=== PATIENT | male | born 1970 | race Caucasian/White ===

== ENCOUNTER 2023-04-04 07:54 | Emergency (ER) | payer BC, SELFPAY ==
[2023-04-04] VITALS (12 sets, daily range): BP systolic 127–146; BP diastolic 79–95; PULSE 80–94; RESP 16; TEMP 36.1; O2SAT 92–96; BMI 37.3
--- NOTE | 2023-04-04 08:02 | CRLHL7_ITS ---
For Patients: As a result of the Century Cures Act, medical imaging exams and procedure reports are released immediately into your electronic medical record. You may view this report before your referring provider. If you have questions, please contact your health care provider. INDICATION: Abdominal pain. History of pancreatitis COMPARISON: August 30, 2022 TECHNIQUE: CT examination of the abdomen and pelvis was performed following the uneventful intravenous administration of 122 cc of Isovue 370. Thin section axial images were obtained from the lung bases through the pubic symphysis. Oral contrast was not administered. Please note that all CT scans at this facility use dose modulation, iterative reconstruction, and/or weight-based dosing when appropriate to reduce radiation dose to as low as reasonably achievable. FINDINGS: LUNG BASES: The lung bases as visualized appear normal.The heart size is normal at the lung bases. LIVER/BILIARY SYSTEM:The liver is normal in size and configuration. There is no focal mass and there is no intra- or extra hepatic biliary ductal dilatation.Hepatic steatosis. Surgically absent gallbladder ADRENALS: Normal KIDNEYS, URETERS and BLADDER:The kidneys appear normal. No visible mass, calculus or hydronephrosis. The ureters and bladder as visualized appear normal. SPLEEN:Normal appearance. PANCREAS: Appears normal. RETROPERITONEUM and MESENTERY: There is no mass, adenopathy or aortic aneurysm. Atherosclerotic vascular calcifications GASTROINTESTINAL SYSTEM: There is no evidence of diverticulitis, colitis, mechanical obstruction, or appendicitis. The small bowel as visualized appears normal. PELVIS: No mass, adenopathy or free fluid. OSSEOUS STRUCTURES and ABDOMINAL WALL: Grade 1 spondylolytic spondylolisthesis of L5 on S1.no significant abdominal wall defect. OTHER: No free fluid or free air. IMPRESSION: No visible cause for pain. There is no finding of pancreatitis by CT. There are incidental nonacute appearing findings as discussed above. Please note that all CT scans at this facility use dose modulation, iterative reconstruction, and/or weight-based dosing when appropriate to reduce radiation dose to as low as reasonably achievable. Dictated by Wander Kilgore MD @ 04/04/2023 9:25:04 AM (Electronically Signed)
--- NOTE | 2023-04-04 08:05 | ED.GENADULT ---
HPI - General Adult General Chief complaint: Abdominal Pain Stated complaint: upper abdominal pain Time Seen by Provider: 04/04/23 07:55 History of Present Illness HPI narrative: Patient is a 52 year white male lives in [place] sees Dr. Esparza for primary care and has had a history of gastritis, history of pancreatitis. He reports he does drink alcohol, he has been able to eat and drink, but over the last couple of days had epigastric pain. He has taken Prilosec for this in the past. He reports that he has felt nauseated wants to vomit, reports the pain is a 5/10. He has not any blood in his stool is not any hematemesis or vomiting. He denies anterior chest pain. Denies shortness of breath. He has had no rigors or chills. He has had a cholecystectomy Related Data Home Medications Medication Instructions Recorded Confirmed albuterol sulfate 90 mcg/actuation 1 inh inhalation ONCE 11/06/21 02/26/23 aerosol inhaler cetirizine 10 mg capsule (All Day 10 mg PO QDAY PRN 11/06/21 02/26/23 Allergy (cetirizine)) fluticasone 250 mcg-salmeterol 50 1 inh inhalation BID 11/06/21 02/26/23 mcg/dose blistr powdr for inhalation (Advair Diskus) omeprazole 20 mg capsule,delayed 20 mg PO QDAY 11/06/21 02/26/23 release sulfasalazine 500 mg tablet 0.5 g PO QDAY 11/06/21 02/26/23 zafirlukast 10 mg tablet 20 mg PO BID 11/06/21 02/26/23 ipratropium 0.5 mg-albuterol 3 mg 3 ml inhalation Q6H PRN 09/08/22 02/26/23 (2.5 mg base)/3 mL nebulization soln metoprolol succinate 25 mg 25 mg PO DAILY 09/08/22 02/26/23 tablet,extended release 24 hr fluconazole 200 mg tablet 200 mg PO DAILY 02/26/23 02/26/23 Previous Rx's Medication Instructions Recorded nystatin 100,000 unit/mL oral 5 ml PO QID #200 mL 11/06/21 suspension ondansetron HCl 4 mg tablet 4 mg PO Q6H #20 tabs 08/30/22 pantoprazole 40 mg tablet,delayed 40 mg PO DAILY #20 tabs 08/30/22 release (Protonix) Allergies Allergy/AdvReac Type Severity Reaction Status Date / Time zolpidem Allergy Severe Verified 02/26/23 10:22 cefuroxime Allergy Intermediate Diarrhea Verified 02/26/23 10:22 fluorometholone Allergy Intermediate Diarrhea Verified 02/26/23 10:22 banana Allergy Mild Verified 02/26/23 10:22 clavulanic acid Allergy Mild Verified 02/26/23 10:22 tetracycline Allergy Mild Verified 02/26/23 10:22 Review of Systems Status of ROS: Reports: 6 or more systems reviewed and unremarkable except as noted in History and below [facility] Medical History Sore throat ?J02.9 - Acute pharyngitis, unspecified (ICD-10) Social History Smoking Status: Never smoker Do you use any of these nicotine containing products: None Second hand tobacco smoke exposure: No How often do you have a drink containing alcohol: monthly or less How many standard drinks containing alcohol do you have on a typical day: 1 or 2 How often do you have six or more drinks on one occasion: Never AUDIT-C Alcohol total score: 1 Non-prescribed substance use: denies use service: No Exam Narrative: Exam Narrative: Objective: Patient denies fever His BMI is elevated A alert orient x3 Noncyanotic HEENT is unremarkable Neck is supple Chest clear Heart rhythm regular heart murmur Abdomen obese benign nontender does have some mild epigastric tenderness to palpation no palpable masses Extremities are no edema neurologic nonfocal, good peripheral perfusion Const: Vital Signs, click to edit/add: Vital Signs - 24 hr 04/04/23 08:00 04/04/23 08:23 04/04/23 08:30 Temperature 97 F L Pulse Rate 87 88 Pulse Rate [Pulse Oximeter] 94 Respiratory Rate 16 Blood Pressure Blood Pressure [Ri ght Upper Arm] 137/95 H Pulse Oximetry 93 92 94 Oxygen Delivery Dc thod Room Air 04/04/23 08:31 04/04/23 08:32 04/04/23 09:10 Temperature Pulse Rate 90 90 Pulse Rate [Pulse Oximeter] Respiratory Rate Blood Pressure 130/95 H Blood Pressure [Ri ght Upper Arm] Pulse Oximetry 94 94 96 Oxygen Delivery Me thod 04/04/23 09:15 04/04/23 09:30 04/04/23 09:31 Temperature Pulse Rate 93 85 87 Pulse Rate [Pulse Oximeter] Respiratory Rate Blood Pressure 127/79 Blood Pressure [Ri ght Upper Arm] Pulse Oximetry 92 93 94 Oxygen Delivery Me thod 04/04/23 09:45 04/04/23 10:00 04/04/23 10:01 Temperature Pulse Rate 80 84 88 Pulse Rate [Pulse Oximeter] Respiratory Rate 16 Blood Pressure 146/88 H Blood Pressure [Ri ght Upper Arm] Pulse Oximetry 94 93 96 Oxygen Delivery Me thod Course Vital Signs Vital signs: Initial Vital Signs Temperature 97 F L 04/04/23 08:00 Temperature Source Temporal Artery Scan 04/04/23 08:00 Pulse Rate 94 04/04/23 08:00 Pulse Rhythm Regular 04/04/23 08:00 Respiratory Rate 16 04/04/23 08:00 Blood Pressure 137/95 H 04/04/23 08:00 Blood Pressure Mean 109 H 04/04/23 08:00 Blood Pressure Position Supine 04/04/23 08:00 Pulse Oximetry 93 04/04/23 08:00 Oxygen Delivery Method Room Air 04/04/23 08:00 Vital Signs Temperature 97 F L 04/04/23 08:00 Pulse Rate 94 04/04/23 08:00 Respiratory Rate 16 04/04/23 08:00 Blood Pressure 137/95 H 04/04/23 08:00 Pulse Oximetry 93 04/04/23 08:00 Oxygen Delivery Method Room Air 04/04/23 08:00 Temperature 97 F L 04/04/23 08:00 Pulse Rate 88 04/04/23 10:01 Respiratory Rate 16 04/04/23 10:01 Blood Pressure 146/88 H 04/04/23 10:01 Pulse Oximetry 96 04/04/23 10:01 Oxygen Delivery Method Room Air 04/04/23 08:00 Medications Administered Medications: Discontinued Medications Generic Name Dose Route Start Last Admin Trade Name Freq PRN Reason Stop Dose Admin Sodium Chloride 1,000 mls @ 6,000 mls/hr 04/04/23 08:15 04/04/23 08:37 0.9 % Sodium Chloride 1000 Ml IV 04/04/23 08:24 6,000 mls/hr .Q10M RAISSA Administration Morphine Sulfate 4 mg 04/04/23 08:02 04/04/23 08:37 Morphine 4 Mg/Ml Inj IVP 04/04/23 08:03 4 mg ONCE ONE Administration Ondansetron HCl 4 mg 04/04/23 08:02 04/04/23 08:38 Ondansetron 2 Mg/Ml Inj IVP 04/04/23 08:03 4 mg ONCE ONE Administration Pantoprazole Sodium 40 mg 04/04/23 08:02 04/04/23 08:37 Pantoprazole Sodium 40 Mg Inj IVP 04/04/23 08:03 40 mg ONCE ONE Administration Medical Decision Making MDM Narrative Medical decision making narrative: [age] year white male with history of pancreatitis, history of gastritis. Presents with couple day history of epigastric pain. At this point I think checking his labs, IV fluid, pain medicine, IV acid suppressant, CT scan abdomen pelvis with IV contrast will pancreatitis be appropriate. Will check a lipase and amylase as well. And check laboratory studies. Disposition pending findings above. Disposition would include gastritis, reflux, pancreatitis, colitis. Addendum 9:35 a.m.: The patient has a normal EKG by my read, his CT scan looks unremarkable. The laboratory studies thus far look reassuring. If his amylase and lipase come back normal I think we can allow him to go home rest light activity light diet. Would recommend Zofran ODT as needed will get that out of the N/C meds and Prilosec 20 mg daily for the next couple of weeks, follow-up with Dr. Esparza the next few days. Patient's labs returned normal Lab Data Labs: Lab Results 04/04/23 Range/Units 08:32 WBC 9.36 (4.50-11.00) K/uL RBC 5.47 (4.30-5.90) m/uL Hgb 16.0 (13.5-17.5) gm/dL Hct 47.6 (37.0-53.0) % MCV 87 (80-100) fL MCH 29 (26-34) pg MCHC 34 (32-36) gm/dL RDW Coeff of José Miguel 12.9 (11.5-15.5) % Plt Count 299 (140-440) K/uL Neut % (Auto) 84.8 H (42.0-72.0) % Lymph % (Auto) 5.4 L (20-44) % Amelia % (Auto) 6.3 (0.0-11.0) % Eos % (Auto) 3.1 (0.0-7.0) % Baso % (Auto) 0.2 (0.0-3.0) % Neut # (Auto) 7.90 H (1.7-7.0) K/uL Lymph # (Auto) 0.50 L (0.90-2.90) K/uL Amelia # (Auto) 0.60 (0.00-0.90) K/UL Eos # (Auto) 0.29 (0.00-0.50) K/uL Baso # (Auto) 0.02 (0.00-0.30) K/uL Abs Immat Gran (auto) 0.02 (0.00-0.30) K/uL Imm/Tot Granulo (auto) 0.2 % Sodium 135 (135-149) mmol/L Potassium 4.2 (3.6-5.1) mmol/L Chloride 104 (96-114) mmol/L Carbon Dioxide 21 (20-32) mmol/L Anion Gap 10 (7-15) mEq/L BUN 11 (7-30) mg/dL Creatinine 0.7 (0.5-1.5) mg/dL Estimated Creat Clear 119.43 Estimated GFR 111 ml/min Glucose 121 H (60-115) mg/dL Calcium 9.2 (8.4-10.6) mg/dL Total Bilirubin 0.7 (0.1-1.5) mg/dL Direct Bilirubin 0.1 (0.0-0.5) mg/dL AST 23 (12-35) U/L ALT 27 (4-50) U/L Alkaline Phosphatase 34 L (40-150) U/L C-Reactive Protein 1.6 H (0.5-1.0) mg/dL Total Protein 7.8 (6.0-8.3) g/dL Albumin 4.6 (3.3-5.0) g/dL Amylase 54 (18-89) U/L Lipase 104 (23-300) U/L POC Troponin I 0.00 L (0.01-0.04) ng/ml Discharge Plan Discharge Clinical Impression: Abdominal pain Patient Disposition: Home w/ Parent or Adult Condition: Stable Additional Instructions: Light activity, Zofran as needed, Tylenol as needed, light diet, recheck with regular doctor next couple of days, return to ED sooner problems or concerns. Also recommend he take Prilosec 20 mg a day which is [id number] for the next couple of weeks. Activity Level: Light activity Discharge Diet: Clear Liquid Diabetic Diet Detail: Advance diet as tolerated Prescriptions: No Action fluticasone propion-salmeterol [Advair Diskus] 250-50 mcg/dose blister with device 1 inh inhalation BID zafirlukast 10 mg tablet 20 mg PO BID Rx Instructions: must be taken on empty stomach, at least 1 hr before or 2 hrs after a meal/food sulfasalazine 500 mg tablet 0.5 g PO QDAY Rx Instructions: give with food (meal/snack) albuterol sulfate 90 mcg/actuation HFA aerosol inhaler 1 inh inhalation ONCE omeprazole 20 mg capsule,delayed release(DR/EC) 20 mg PO QDAY All Day Allergy (cetirizine) 10 mg capsule 10 mg PO QDAY PRN nystatin 100,000 unit/mL suspension 5 ml PO QID Qty: 200 1RF Rx Instructions: swish and swallow fluconazole 200 mg tablet 200 mg PO DAILY metoprolol succinate 25 mg tablet extended release 24 hr 25 mg PO DAILY ipratropium-albuterol 0.5 mg-3 mg(2.5 mg base)/3 mL solution for nebulization 3 ml inhalation Q6H PRN ondansetron HCl 4 mg tablet 4 mg PO Q6H Qty: 20 0RF pantoprazole [Protonix] 40 mg tablet,delayed release (DR/EC) 40 mg PO DAILY Qty: 20 2RF Follow Up/Referrals: Cezar Esparza MD [Primary Care Provider] - Stand Alone Forms: [employer] Info Instructions
--- OUTSIDE RECORDS SUMMARY | 2023-04-04 08:09 | XMS_ITS | Patient Health Record ---
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 Role Phone No Primary, Care Primary Care Provider Unavailab Jon Hernandez Unavailable [phone] Carole Stern DO Unavailable Unavailable ALLERGIES No Known Allergies REASON FOR REFERRAL No Information MEDICATIONS Medication SIG (Take, Route, Frequency, Duration) Notes Start Date End Date Status Cyclobenzaprine HCl 10 MG 1 tablet as ne eded Orally prn Active Advair Diskus 250-50 MCG/DOSE 1 puff Inh alation Twice a day Active Ventolin HFA 108 (90 Base) MCG/ACT 1 puff as needed Inhalation prn Active Omeprazole 20 MG 1 capsule 30 minutes before morning meal Orally Once a day Active SOCIAL HISTORY Sex Assigned At : Social History Observation Description Sex Assigned At Unknown Alcohol Screen Question Answer Notes Did you have a drink containing alcohol in the p ast year? No Points 0 Interpretation Negative PROBLEMS Problem Type ICD Code Onset Dates Problem Status W/U Status Risk SNOMED Code Notes Problem Tension-type headache, unspecified, not intractable (G44.209) Active confirmed Tension-type headache (715527442) Problem Dorsalgia, unspecified (M54.9) Active confirmed Backache (306016336) Problem Segmental and somatic dysfunction of cervical region (M99.01) Active confirmed Segmental and somatic dysfunction (248949794) Problem Neck pain (M54.2) Active confirmed Neck pain (19420570) PLAN OF TREATMENT No Information Insurance Providers Payer Name Payer Address Payer Phone Subscriber Number Group Number Insured Name Patient Relationship to Insured Coverage Start Date Coverage End Date [place] [address] [address] [place] [phone] [id number] Susana Hoff Spouse - patient is the spouse of the insured 1 MEDICAL (GENERAL) HISTORY Medical History History ICD Code General Past Medical History : Asthma,Stomach Ulcers,Arthritis,Headaches,Cancer,Acid Reflux,Sleep Apnea Surgical History Surgery Date(Month/Year) Gallbladder 10/28 Left ear removal melanoma 03/30
[2023-04-04] MEDS: MORPHINE 4 MG/ML INJ IVP (08:37)
[2023-04-04] MEDS: 0.9 % SODIUM CHLORIDE 1000 ml 1,000 ML 6000 ML IV (08:37)
[2023-04-04] MEDS: PANTOPRAZOLE SODIUM 40 MG INJ IVP (08:37)
[2023-04-04] MEDS: ONDANSETRON 2 MG/ML inj 4 MG IVP (08:38)
[2023-04-04 09:12] LABS: Basophils Absolute Auto 0.02 K/uL (0.00-0.30); Basophils Percent Auto 0.2 % (0.0-3.0); Eosinophils Absolute Auto 0.29 K/uL (0.00-0.50); Eosinophils Percent Auto 3.1 % (0.0-7.0); Hematocrit 47.6 % (37.0-53.0); Immature Granulocytes Abs Auto 0.02 K/uL (0.00-0.30); Immature Granulocytes Pct Auto 0.2 %; Lymphocytes Percent Auto 5.4 % (20-44); Mean Corpuscular HGB Conc 34 gm/dL (32-36); Mean Corpuscular Hemoglobin 29 pg (26-34); Mean Corpuscular Volume 87 fL (80-100); Monocytes Percent Auto 6.3 % (0.0-11.0); Neutrophils Percent Auto 84.8 % (42.0-72.0); Platelet Count* 299 K/uL (140-440); RDW Coefficient of Variation % 12.9 % (11.5-15.5); Red Blood Count 5.47 m/uL (4.30-5.90); White Blood Count* 9.36 K/uL (4.50-11.00)
[2023-04-04 09:25] LABS: Chloride* 104 mmol/L (96-114); Potassium* 4.2 mmol/L (3.6-5.1); Sodium* 135 mmol/L (135-149)
[2023-04-04 09:26] LABS: Albumin* 4.6 g/dL (3.3-5.0)
[2023-04-04 09:28] LABS: Creatinine* 0.7 mg/dL (0.5-1.5); Est. Creatinine Clearance* 119.43; Estimated Glomerular Filt Rate 111 ml/min
[2023-04-04 09:29] LABS: Amylase* 54 U/L (18-89); Anion Gap 10 mEq/L (7-15); Blood Urea Nitrogen* 11 mg/dL (7-30); Calcium* 9.2 mg/dL (8.4-10.6); Carbon Dioxide* 21 mmol/L (20-32); Glucose* 121 mg/dL (60-115); Total Protein* 7.8 g/dL (6.0-8.3)
[2023-04-04 09:30] LABS: Alanine Aminotransferase* 27 U/L (4-50); Alkaline Phosphatase* 34 U/L (40-150); Aspartate Amino Transferase* 23 U/L (12-35); Bilirubin Direct* 0.1 mg/dL (0.0-0.5); Bilirubin Total* 0.7 mg/dL (0.1-1.5); Lipase* 104 U/L (23-300)
[2023-04-04 09:32] LABS: C Reactive Protein* 1.6 mg/dL (0.5-1.0)
[2023-04-04 11:27] LABS: Slide Review Reflex No
== END 2023-04-04 10:12 | disposition home or self-care (01) ==
PROVIDERS: Emergency Provider Family Medicine; PCP Family Medicine
DX: R10.13 Epigastric pain (principal)
CPT/HCPCS: 36415; 74177; 80048; 80076; 82150; 83690; 84484; 85025; 86140; 93005; 94761; 96374; 96375; 99284; 99285; C9113; J2270; J2405; J7030; Q9967

== ENCOUNTER 2023-06-04 05:55 | Emergency (ER) | payer BC, SELFPAY ==
[2023-06-04 06:03] VITALS: BP 158/111; PULSE 79; RESP 16; TEMP 36.6; O2SAT 99; BMI 38.0
--- NOTE | 2023-06-04 06:09 | ED_ITS ---
HPI - Allergic Reaction General Chief complaint: Allergic Reaction Stated complaint: rash on chest, back Time Seen by Provider: 06/04/23 06:01 History of Present Illness HPI narrative: Patient is a 52-year-old gentleman who has a history of oral thrush. He took a dose of fluconazole which over last 12 hours let drug eruption on the anterior chest. The eruption is a somewhat erythematous and itchy. No desquamation. No oral mucosal involvement or shortness of breath. Patient has had no palpitations no fevers no chills no night sweats no real involvement of the extremities. The areas of induration are approximately a 4 cm diameter slightly raised and erythematous. He has had previous reactions to similar medications in the past. Related Data Home Medications Medication Instructions Recorded Confirmed albuterol sulfate 90 mcg/actuation 1 inh inhalation ONCE 11/06/21 02/26/23 aerosol inhaler cetirizine 10 mg capsule (All Day 10 mg PO QDAY PRN 11/06/21 02/26/23 Allergy (cetirizine)) fluticasone 250 mcg-salmeterol 50 1 inh inhalation BID 11/06/21 02/26/23 mcg/dose blistr powdr for inhalation (Advair Diskus) omeprazole 20 mg capsule,delayed 20 mg PO QDAY 11/06/21 02/26/23 release sulfasalazine 500 mg tablet 0.5 g PO QDAY 11/06/21 02/26/23 zafirlukast 10 mg tablet 20 mg PO BID 11/06/21 02/26/23 ipratropium 0.5 mg-albuterol 3 mg 3 ml inhalation Q6H PRN 09/08/22 02/26/23 (2.5 mg base)/3 mL nebulization soln metoprolol succinate 25 mg 25 mg PO DAILY 09/08/22 02/26/23 tablet,extended release 24 hr fluconazole 200 mg tablet 200 mg PO DAILY 02/26/23 02/26/23 Previous Rx's Medication Instructions Recorded nystatin 100,000 unit/mL oral 5 ml PO QID #200 mL 11/06/21 suspension ondansetron HCl 4 mg tablet 4 mg PO Q6H #20 tabs 08/30/22 pantoprazole 40 mg tablet,delayed 40 mg PO DAILY #20 tabs 08/30/22 release (Protonix) Allergies Allergy/AdvReac Type Severity Reaction Status Date / Time zolpidem Allergy Severe Verified 02/26/23 10:22 cefuroxime Allergy Intermediate Diarrhea Verified 02/26/23 10:22 fluorometholone Allergy Intermediate Diarrhea Verified 02/26/23 10:22 banana Allergy Mild Verified 02/26/23 10:22 clavulanic acid Allergy Mild Verified 02/26/23 10:22 tetracycline Allergy Mild Verified 02/26/23 10:22 Review of Systems Status of ROS Reports: 10 or more systems reviewed and unremarkable except as noted in History and below [facility] Medical History Sore throat ?J02.9 - Acute pharyngitis, unspecified (ICD-10) Social History Smoking Status: Never smoker Do you use any of these nicotine containing products: None Second hand tobacco smoke exposure: No How often do you have a drink containing alcohol: monthly or less How many standard drinks containing alcohol do you have on a typical day: 1 or 2 How often do you have six or more drinks on one occasion: Never AUDIT-C Alcohol total score: 1 Non-prescribed substance use: denies use service: No Exam Narrative: Exam Narrative: EXAM GENERAL: Patient appears comfortable and well. EYES: No scleral icterus. ENT: Tympanic membranes and oropharynx normal. THYROID: no thyroid nodules or thyromegaly. LYMPH: No supraclavicular or cervical lymphadenopathy. SKIN: Mild urticaria rash on the anterior torso extending to the neck. EXT: No dependent lower extremity pedal edema. HEART: Regular rate and rhythm with no murmurs, rubs, or gallops. LUNGS: Clear to auscultation bilaterally with no crackles or wheezes. ABD: Soft, non tender, non distended. PSYCH: Good eye contact, speech is not pressured. Const: Vital Signs, click to edit/add: Vital Signs - 24 hr 06/04/23 06:03 Temperature 97.8 F Pulse Rate [Pulse Oximeter] 79 Respiratory Rate 16 Blood Pressure [Ri ght Upper Arm] 158/111 H Pulse Oximetry 99 Oxygen Delivery Me thod Room Air Course Course ED Course: Patient seen and examined. Vital Signs Vital signs: Initial Vital Signs Respiratory Effort Normal, Spontaneous, Non-Labored 06/04/23 06:01 Respiratory Depth Normal 06/04/23 06:01 Respiratory Pattern Normal 06/04/23 06:01 Vital Signs Temperature 97.8 F 06/04/23 06:03 Pulse Rate 79 06/04/23 06:03 Respiratory Rate 16 06/04/23 06:03 Blood Pressure 158/111 H 06/04/23 06:03 Pulse Oximetry 99 06/04/23 06:03 Oxygen Delivery Method Room Air 06/04/23 06:03 Temperature 97.8 F 06/04/23 06:03 Pulse Rate 79 06/04/23 06:03 Respiratory Rate 16 06/04/23 06:03 Blood Pressure 158/111 H 06/04/23 06:03 Pulse Oximetry 99 06/04/23 06:03 Oxygen Delivery Method Room Air 06/04/23 06:03 MDM - Allergic Reaction MDM Narrative Medical decision making narrative: Patient is a healthy 52-year-old gentleman who has had a reaction to fluconazole. He has had similar reactions in the past. He has no mucous membrane involvement in the urticaria or limited to the anterior torso and anterior neck. He has no signs of Lopez-Husam syndrome or erythema multiforme. This time I did treat him with 40 mg of Solu-Medrol IM and a 5 day course of prednisone. He will avoid similar medications in the future and will follow-up with his primary physician as needed. Differential Diagnosis Differential diagnosis: Likely anaphylaxis, allergic reaction, angioedema, contact dermatitis, adverse reaction to drug, viral enanthem and urticaria Discharge Plan Discharge Instructions: General Allergic Reaction (ED) Additional Instructions: . Fluconazole Prednisone as directed Benadryl as needed 25-50 mg every 6 hours. Follow-up with your doctor as needed Moisturizing skin lotions as needed. Activity Level: No Restrictions Discharge Diet: Regular Prescriptions: No Action fluticasone propion-salmeterol [Advair Diskus] 250-50 mcg/dose blister with device 1 inh inhalation BID zafirlukast 10 mg tablet 20 mg PO BID Rx Instructions: must be taken on empty stomach, at least 1 hr before or 2 hrs after a meal/food sulfasalazine 500 mg tablet 0.5 g PO QDAY Rx Instructions: give with food (meal/snack) albuterol sulfate 90 mcg/actuation HFA aerosol inhaler 1 inh inhalation ONCE omeprazole 20 mg capsule,delayed release(DR/EC) 20 mg PO QDAY All Day Allergy (cetirizine) 10 mg capsule 10 mg PO QDAY PRN nystatin 100,000 unit/mL suspension 5 ml PO QID Qty: 200 1RF Rx Instructions: swish and swallow fluconazole 200 mg tablet 200 mg PO DAILY metoprolol succinate 25 mg tablet extended release 24 hr 25 mg PO DAILY ipratropium-albuterol 0.5 mg-3 mg(2.5 mg base)/3 mL solution for nebulization 3 ml inhalation Q6H PRN ondansetron HCl 4 mg tablet 4 mg PO Q6H Qty: 20 0RF pantoprazole [Protonix] 40 mg tablet,delayed release (DR/EC) 40 mg PO DAILY Qty: 20 2RF Follow Up/Referrals: Cezar Esparza MD [Primary Care Provider] - Stand Alone Forms: [facility] Info Instructions
[2023-06-04] MEDS: METHYLPREDNISOLONE SOD SUCC 40 MG/ML IM (06:20)
[2023-06-04 06:21] VITALS: RESP 16; O2SAT 96
== END 2023-06-04 06:22 | disposition home or self-care (01) ==
LOC: ED 06:12
PROVIDERS: Emergency Provider Internal Medicine; PCP Family Medicine
DX: R21 Rash and other nonspecific skin eruption (principal); T37.8X5A Adverse effect of other specified systemic anti-infectives and antiparasitics, initial encounter
CPT/HCPCS: 96372; 99283; J2920

== ENCOUNTER 2023-12-31 18:16 | Emergency (ER) | payer BC, SELFPAY ==
[2023-12-31] VITALS (17 sets, daily range): BP systolic 127–167; BP diastolic 85–100; PULSE 74–88; RESP 16–20; TEMP 36.5; O2SAT 92–98; BMI 37.3
--- NOTE | 2023-12-31 19:05 | ED_ITS ---
HPI - Abdominal Pain General Time Seen by Provider: 19:06 Date Seen: 12/31/23 Chief Complaint: Abdominal Pain Stated Complaint: Upper abdominal pain Time Seen by Provider: 12/31/23 19:05 Source: patient, RN notes reviewed and old records reviewed Mode of arrival: ambulatory Limitations: no limitations History of Present Illness HPI narrative: This 53-year-old male is coming in with epigastric upper abdominal pain for 3 days. It has been intermittent. He notes that after eating, symptoms will increase. He had his gallbladder out in 2019. He has had a history of pancreatitis. He does not endorse any significant alcohol intake. There has been no fevers. He did eat lunch today, had half of a hamburger and fries and started to feel bloated and then felt the abdominal pain increased. It has radiated a little into the left mid abdomen at 1 point. He had diminished stool output today but prior has been normal. There is no nausea or vomiting. No change in urinary symptoms. Thinks he maybe has not drank as much as he normally would as far as fluids today. 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 Related Data Home Medications ?Medication ?Instructions ?Recorded ?Confirmed albuterol sulfate 90 mcg/actuation 1 inh inhalation ONCE 11/06/21 12/31/23 aerosol inhaler cetirizine 10 mg capsule (All Day 10 mg PO QDAY PRN 11/06/21 12/31/23 Allergy (cetirizine)) fluticasone 250 mcg-salmeterol 50 1 inh inhalation BID 11/06/21 12/31/23 mcg/dose blistr powdr for inhalation (Advair Diskus) omeprazole 20 mg capsule,delayed 20 mg PO QDAY 11/06/21 02/26/23 release sulfasalazine 500 mg tablet 0.5 g PO QDAY 11/06/21 12/31/23 zafirlukast 10 mg tablet 20 mg PO BID 11/06/21 12/31/23 ipratropium 0.5 mg-albuterol 3 mg 3 ml inhalation Q6H PRN 09/08/22 12/31/23 (2.5 mg base)/3 mL nebulization soln fluconazole 200 mg tablet 200 mg PO DAILY 02/26/23 02/26/23 Previous Rx's ?Medication ?Instructions ?Recorded nystatin 100,000 unit/mL oral 5 ml PO QID #200 mL 11/06/21 suspension ondansetron HCl 4 mg tablet 4 mg PO Q6H #20 tabs 08/30/22 pantoprazole 40 mg tablet,delayed 40 mg PO DAILY #20 tabs 08/30/22 release (Protonix) Allergies Allergy/AdvReac Type Severity Reaction Status Date / Time zolpidem Allergy Severe Verified 12/31/23 20:52 cefuroxime Allergy Intermediate Diarrhea Verified 12/31/23 20:52 fluorometholone Allergy Intermediate Diarrhea Verified 12/31/23 20:52 banana Allergy Mild Verified 12/31/23 20:52 clavulanic acid Allergy Mild Verified 12/31/23 20:52 tetracycline Allergy Mild Verified 12/31/23 20:52 Review of Systems Status of ROS Reports: 6 or more systems reviewed and unremarkable except as noted in History and below [facility] Medical History Sore throat ?J02.9 - Acute pharyngitis, unspecified (ICD-10) Social History Smoking Status: Never smoker Do you use any of these nicotine containing products: None Second hand tobacco smoke exposure: No How often do you have a drink containing alcohol: monthly or less How many standard drinks containing alcohol do you have on a typical day: 1 or 2 How often do you have six or more drinks on one occasion: Never AUDIT-C Alcohol total score: 1 Non-prescribed substance use: denies use service: No Exam Const: Vital Signs, click to edit/add: Vital Signs - 24 hr 12/31/23 18:26 12/31/23 19:14 12/31/23 19:31 Temperature 97.7 F Pulse Rate 88 82 Pulse Rate [Right Pulse Oximeter] 87 Respiratory Rate 18 20 Blood Pressure 147/100 H Blood Pressure [Ri ght Upper Arm] 167/99 H Pulse Oximetry 96 98 96 Oxygen Delivery Nv thod Room Air Room Air 12/31/23 19:45 12/31/23 20:02 12/31/23 20:30 Temperature Pulse Rate 84 84 80 Pulse Rate [Right Pulse Oximeter] Respiratory Rate 18 Blood Pressure 138/89 Blood Pressure [Ri ght Upper Arm] Pulse Oximetry 94 96 95 Oxygen Delivery Me thod Room Air 12/31/23 20:32 12/31/23 20:33 12/31/23 21:00 Temperature Pulse Rate 82 82 74 Pulse Rate [Right Pulse Oximeter] Respiratory Rate Blood Pressure 129/88 Blood Pressure [Ri ght Upper Arm] Pulse Oximetry 96 95 98 Oxygen Delivery Me thod 12/31/23 21:07 12/31/23 21:30 12/31/23 21:32 Temperature Pulse Rate 78 80 81 Pulse Rate [Right Pulse Oximeter] Respiratory Rate 18 18 Blood Pressure 142/96 H 127/85 Blood Pressure [Ri ght Upper Arm] Pulse Oximetry 98 96 96 Oxygen Delivery Me thod Room Air Room Air 12/31/23 21:33 12/31/23 22:01 12/31/23 22:16 Temperature Pulse Rate 77 75 76 Pulse Rate [Right Pulse Oximeter] Respiratory Rate 18 Blood Pressure 128/85 Blood Pressure [Ri ght Upper Arm] Pulse Oximetry 96 98 92 Oxygen Delivery Me thod Room Air This 53-year-old male is alert, interactive, no apparent distress. Sclera clear, no icterus. Pupils equal round reactive. Symmetrical facial function, able speak in complete sentences. Lungs are clear, good air entry, wheeze or crackles. CV regular rate and rhythm, no murmur, normal S1-S2, no S3-S4. Abdomen is soft, nontender, nondistended, no organomegaly, no rebound or guarding, no masses. He does point to the epigastric area where he will feel the pain but I am not able to reproduce it at this time. Patient is ambulatory into the ED of his own accord. Documenting provider has reviewed patient's vital signs: yes Course Course ED Course: Patient has had history pancreatitis, do feel that we need to image to further define underlying etiology of his abdominal pain. We will also check full complement of labs. He declines any need for any pain management at this time. The CT will help us to see any other possible abdominal etiology. 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 We certainly can try some IV Toradol as we do not know the etiology, will give Zofran. Time of Reevaluation #2: 22:31 Reevaluation #2: CT read is finally back, does show early or mild pancreatitis. His labs are reassuring, normal amylase and lipase but we did review that this does not mean that he does not have pancreatitis. His pain is controlled right now, he states he is hungry. Advised him that he really should try clear liquid diet for a day or 2 in light his symptoms settle down. He has tolerated oxycodone, will send this home for him. Do think he is safe for trial of management at home. He is not drinking alcohol, discussed that there can be triglyceride causes of this, should follow up with his primary care provider, consider GI consultation. Ten tablets of oxycodone and Zofran were sent from [facility]. Vital Signs Vital signs: Initial Vital Signs Temperature 97.7 F 12/31/23 18:26 Temperature Source Temporal Artery Scan 12/31/23 18:26 Pulse Rate 87 12/31/23 18:26 Respiratory Rate 18 12/31/23 18:26 Blood Pressure 167/99 H 12/31/23 18:26 Blood Pressure Mean 121 H 12/31/23 18:26 Blood Pressure Position Sitting 12/31/23 18:26 Pulse Oximetry 96 12/31/23 18:26 Oxygen Delivery Method Room Air 12/31/23 18:26 Vital Signs Temperature 97.7 F 12/31/23 18:26 Pulse Rate 87 12/31/23 18:26 Respiratory Rate 18 12/31/23 18:26 Blood Pressure 167/99 H 12/31/23 18:26 Pulse Oximetry 96 12/31/23 18:26 Oxygen Delivery Method Room Air 12/31/23 18:26 Temperature 97.7 F 12/31/23 18:26 Pulse Rate 76 12/31/23 22:16 Respiratory Rate 18 12/31/23 22:01 Blood Pressure 128/85 12/31/23 22:01 Pulse Oximetry 92 12/31/23 22:16 Oxygen Delivery Method Room Air 12/31/23 22:01 Medications Administered Medications: Discontinued Medications Generic Name Dose Route Start Last Admin Trade Name Freq PRN Reason Stop Dose Admin Ketorolac Tromethamine 15 mg 12/31/23 19:41 12/31/23 19:46 Ketorolac 15 Mg/Ml Inj IVP 12/31/23 19:42 15 mg ONCE ONE Administration Ondansetron HCl 4 mg 12/31/23 19:41 12/31/23 19:47 Ondansetron 2 Mg/Ml Inj IVP 12/31/23 19:42 4 mg ONCE ONE Administration MDM - Abdominal Pain Lab Data Attestation: I reviewed the patient's lab results. Labs: Lab Results 12/31/23 12/31/23 12/31/23 Range/Units 19:05 19:20 19:25 WBC 7.68 (4.50-11.00) K/uL RBC 4.85 (4.30-5.90) m/uL Hgb 14.0 (13.5-17.5) gm/dL Hct 42.6 (37.0-53.0) % MCV 88 (80-100) fL MCH 29 (26-34) pg MCHC 33 (32-36) gm/dL RDW Coeff of José Miguel 13.2 (11.5-15.5) % Plt Count 278 (140-440) K/uL Neut % (Auto) 53.2 (42.0-72.0) % Lymph % (Auto) 31.1 (20-44) % [place] % (Auto) 11.6 H (0.0-11.0) % Eos % (Auto) 3.5 (0.0-7.0) % Baso % (Auto) 0.5 (0.0-3.0) % Neut # (Auto) 4.08 (1.7-7.0) K/uL Lymph # (Auto) 2.39 (0.90-2.90) K/uL [place] # (Auto) 0.90 (0.00-0.90) K/UL Eos # (Auto) 0.27 (0.00-0.50) K/uL Baso # (Auto) 0.04 (0.00-0.30) K/uL Abs Immat Gran (auto) 0.01 (0.00-0.30) K/uL Imm/Tot Granulo (auto) 0.1 % Sodium 136 (135-149) mmol/L Potassium 3.7 (3.6-5.1) mmol/L Chloride 103 (96-114) mmol/L Carbon Dioxide 25 (20-32) mmol/L Anion Gap 8 (7-15) mEq/L BUN 10 (7-30) mg/dL Creatinine 0.9 (0.5-1.5) mg/dL Estimated Creat Clear 91.83 Estimated GFR 102 ml/min Glucose 98 (60-115) mg/dL Lactate 0.6 (0.5-1.9) mmol/L Calcium 9.0 (8.4-10.6) mg/dL Total Bilirubin 0.5 (0.1-1.5) mg/dL Direct Bilirubin 0.3 (0.0-0.5) mg/dL AST 25 (12-35) U/L ALT 20 (4-50) U/L Alkaline Phosphatase 31 L (40-150) U/L C-Reactive Protein 2.4 H (0.5-1.0) mg/dL Total Protein 7.2 (6.0-8.3) g/dL Albumin 4.3 (3.3-5.0) g/dL Amylase 53 (18-89) U/L Lipase 104 (23-300) U/L Urine Color Yellow (Yellow) Urine Appearance Clear (Clear) Urine pH 5.5 (5.0-8.5) Ur Specific [place] 1.025 (1.000-1.030) Urine Protein Negative (Negative) Urine Glucose (UA) Negative (Negative) Urine Ketones Trace A (Negative) Urine Blood Negative (Negative) Urine Nitrite Negative (Negative) Urine Bilirubin Negative (Negative) Urine Urobilinogen 0.2 (0.2-1.0) Ur Leukocyte Esterase Negative (Negative) Urine RBC 0-2 (0-2) Urine WBC 0-2 (0-5) Ur Squamous Epith Cells None (None-Few) Urine Bacteria None (None) Imaging Data CT scan - abdomen: Attestation: I have reviewed the pertinent imaging results. Radiologist's impression: Patient: KILLIAN SANTO Facility:?[facility] Patient ID:?[id number] Site Patient ID:?[id number]. Site :?[id number] Study:?CT-Abdomen/Pelvis W/ 120CC ISOVUE 370-12/31/2023 8:55:43 PM Ordering Physician:?Anita Reddy Final Report: INDICATION: UPPER ABDOMINAL EPIGASTRIC PAIN INTERMITTENT FOR A FEW DAYS. WORSE TODAY. HX PANCREATITIS AND GASTRITIS. HX SKIN CANCER. CT ABDOMEN AND PELVIS WITH CONTRAST TECHNIQUE: Multidetector CT imaging was performed through the abdomen and pelvis following intravenous contrast administration using 120 mL Isovue 370. Coronal and sagittal reconstructions were generated. COMPARISON: 04/04/2023 CT abdomen and pelvis. FINDINGS: Lower chest: Minimal bibasilar lung atelectasis. Liver: Stable tiny hypodensity in the anterior liver on image 28 of series 2, not well characterized but likely benign. Gallbladder and bile ducts: Status post cholecystectomy, as before. No biliary dilation identified. Pancreas: Subtle fat stranding about the pancreatic tail, new compared to the prior exam, suggesting early or mild acute pancreatitis. No evidence of pancreatic necrosis or pseudocyst. Spleen: Normal. Adrenals: No nodules or masses. Kidneys, ureters, and urinary bladder: No renal masses or hydronephrosis. No bladder mass or definite wall thickening. Gastrointestinal tract: Normal caliber small bowel without wall thickening or obstruction. The appendix is normal. There are a few colon diverticula, without evidence of diverticulitis. Vascular structures: Normal caliber abdominal aorta with minimal atherosclerotic calcification. Peritoneum: No free air, abscess, or significant free fluid. Lymph nodes: No pathologically enlarged nodes identified. Reproductive organs: No pelvic masses. Bones: Chronic bilateral L5 pars defects with unchanged minimal L5-S1 spondylolisthesis. IMPRESSION: 1. Subtle fat stranding about the pancreatic tail suggesting early or mild acute pancreatitis. Correlation with serum amylase/lipase is suggested. 2. Nonacute findings as detailed above. LOLIS ROMAN MD [employer] Dictated by Ishmael Roman MD @ 12/31/2023 10:21:38 PM Discharge Plan Discharge Clinical Impression: Acute pancreatitis Qualifiers: Pancreatitis type: unspecified pancreatitis type Acute pancreatitis complication: no infection or necrosis Qualified Code(s): K85.90 - Acute pancreatitis without necrosis or infection, unspecified Patient Disposition: Home, Self-Care Condition: Stable Instructions: Pancreatitis (ED) Additional Instructions: Use oxycodone for severe pain, can use Tylenol and ibuprofen per bottle directions for more mild pain. Zofran prescription also sent home with you to be used for nausea. Try to stay on clear liquids for 1-2 days, can advance diet as pain improves. Do need to follow-up with your primary care provider in clinic, make sure triglycerides are not an issue for you. Consideration for GI referral consultation for recurrent pancreatitis can be reviewed with your primary care provider. If you are using oxycodone, may need to use MiraLax and senna to prevent narcotic induced constipation. If your abdominal pain is worsening, have uncontrolled nausea vomiting, develops fever with her symptoms, do need to be re-evaluated. Activity Level: Activity as Tolerated Prescriptions: No Action fluticasone propion-salmeterol [Advair Diskus] 250-50 mcg/dose blister with device 1 inh inhalation BID zafirlukast 10 mg tablet 20 mg PO BID Rx Instructions: must be taken on empty stomach, at least 1 hr before or 2 hrs after a meal/food sulfasalazine 500 mg tablet 0.5 g PO QDAY Rx Instructions: give with food (meal/snack) albuterol sulfate 90 mcg/actuation HFA aerosol inhaler 1 inh inhalation ONCE omeprazole 20 mg capsule,delayed release(DR/EC) 20 mg PO QDAY All Day Allergy (cetirizine) 10 mg capsule 10 mg PO QDAY PRN nystatin 100,000 unit/mL suspension 5 ml PO QID Qty: 200 1RF Rx Instructions: swish and swallow fluconazole 200 mg tablet 200 mg PO DAILY ipratropium-albuterol 0.5 mg-3 mg(2.5 mg base)/3 mL solution for nebulization 3 ml inhalation Q6H PRN ondansetron HCl 4 mg tablet 4 mg PO Q6H Qty: 20 0RF pantoprazole [Protonix] 40 mg tablet,delayed release (DR/EC) 40 mg PO DAILY Qty: 20 2RF Follow Up/Referrals: Cezar Esparza MD [Primary Care Provider] - Stand Alone Forms: [employer] Info Instructions
--- NOTE | 2023-12-31 19:19 | CRLHL7_ITS ---
For Patients: As a result of the Century Cures Act, medical imaging exams and procedure reports are released immediately into your electronic medical record. You may view this report before your referring provider. If you have questions, please contact your health care provider. INDICATION: UPPER ABDOMINAL EPIGASTRIC PAIN INTERMITTENT FOR A FEW DAYS. WORSE TODAY. HX PANCREATITIS AND GASTRITIS. HX SKIN CANCER. CT ABDOMEN AND PELVIS WITH CONTRAST TECHNIQUE: Multidetector CT imaging was performed through the abdomen and pelvis following intravenous contrast administration using 120 mL Isovue 370. Coronal and sagittal reconstructions were generated. COMPARISON: 04/04/2023 CT abdomen and pelvis. FINDINGS: Lower chest: Minimal bibasilar lung atelectasis. Liver: Stable tiny hypodensity in the anterior liver on image 28 of series 2, not well characterized but likely benign. Gallbladder and bile ducts: Status post cholecystectomy, as before. No biliary dilation identified. Pancreas: Subtle fat stranding about the pancreatic tail, new compared to the prior exam, suggesting early or mild acute pancreatitis. No evidence of pancreatic necrosis or pseudocyst. Spleen: Normal. Adrenals: No nodules or masses. Kidneys, ureters, and urinary bladder: No renal masses or hydronephrosis. No bladder mass or definite wall thickening. Gastrointestinal tract: Normal caliber small bowel without wall thickening or obstruction. The appendix is normal. There are a few colon diverticula, without evidence of diverticulitis. Vascular structures: Normal caliber abdominal aorta with minimal atherosclerotic calcification. Peritoneum: No free air, abscess, or significant free fluid. Lymph nodes: No pathologically enlarged nodes identified. Reproductive organs: No pelvic masses. Bones: Chronic bilateral L5 pars defects with unchanged minimal L5-S1 spondylolisthesis. IMPRESSION: 1. Subtle fat stranding about the pancreatic tail suggesting early or mild acute pancreatitis. Correlation with serum amylase/lipase is suggested. 2. Nonacute findings as detailed above. LOLIS ROMAN MD [employer] Dictated by Ishmael Roman MD @ 12/31/2023 10:21:38 PM Please note that all CT scans at this facility use dose modulation, iterative reconstruction, and/or weight-based dosing when appropriate to reduce radiation dose to as low as reasonably achievable. Dictated by: Ishmael Roman MD @ 12/31/2023 22:22:11 (Electronically Signed)
[2023-12-31 19:30] LABS: Appearance Urine Clear (Clear); Bilirubin Urine Negative (Negative); Blood Urine Negative (Negative); Color Urine Yellow (Yellow); Glucose Urine Negative (Negative); Ketones Urine Trace (Negative); Leukocyte Esterase Urine Negative (Negative); Nitrite Urine Negative (Negative); Protein Urine Negative (Negative); Specific Gravity Urine 1.025 (1.000-1.030); Urobilinogen Urine 0.2 (0.2-1.0); pH Urine 5.5 (5.0-8.5)
[2023-12-31 19:33] LABS: Lactate* 0.6 mmol/L (0.5-1.9)
[2023-12-31 19:36] LABS: Basophils Absolute Auto 0.04 K/uL (0.00-0.30); Basophils Percent Auto 0.5 % (0.0-3.0); Eosinophils Absolute Auto 0.27 K/uL (0.00-0.50); Eosinophils Percent Auto 3.5 % (0.0-7.0); Hematocrit 42.6 % (37.0-53.0); Immature Granulocytes Abs Auto 0.01 K/uL (0.00-0.30); Immature Granulocytes Pct Auto 0.1 %; Lymphocytes Absolute Auto 2.39 K/uL (0.90-2.90); Lymphocytes Percent Auto 31.1 % (20-44); Mean Corpuscular HGB Conc 33 gm/dL (32-36); Mean Corpuscular Hemoglobin 29 pg (26-34); Mean Corpuscular Volume 88 fL (80-100); Monocytes Percent Auto 11.6 % (0.0-11.0); Neutrophils Absolute Auto 4.08 K/uL (1.7-7.0); Neutrophils Percent Auto 53.2 % (42.0-72.0); Platelet Count* 278 K/uL (140-440); RDW Coefficient of Variation % 13.2 % (11.5-15.5); Red Blood Count 4.85 m/uL (4.30-5.90); White Blood Count* 7.68 K/uL (4.50-11.00)
[2023-12-31 19:44] LABS: Slide Review Reflex No
[2023-12-31] MEDS: KETOROLAC 15 MG/ML inj IVP (19:46)
[2023-12-31] MEDS: ONDANSETRON 2 MG/ML inj 4 MG IVP (19:47)
--- OUTSIDE RECORDS SUMMARY | 2023-12-31 19:47 | XMS_ITS | Encounter Summary ---
Author Organization [facility] Address [address] [place] [address] Care Team Providers Care Smalltalk Developer Name Role Phone Unavailable Primary Care Provider Unavailabl e Encounter Details Date Type Department Care Team (Late st Contact Info) Description 11/15/2008 Historical Ophthalmology [facility]ST [facility] Gary Wellington M.D. [address] [place] [id number] Social History Tobacco Use Types Packs/Day Years Used Date Smoking Tobacco: Never Assessed Sex and Gender Information Value Date Recorded Sex Assigned at Male 08/28/2017 5:25 PM CDT Gender Identity Male 08/28/2017 5:25 PM CDT Sexual Orientation Straight 08/28/2017 5: 25 PM CDT documented as of this encounter Progress Notes * Gary Wellington M.D. - 11/15/2008 7:32 AM CDT Eye General CHIEF COMPLAINT Recheck of uveitis left eye. HISTORY OF PRESENT ILLNESS The patient describes floaters in left eye for the past 7 months, which is constant, mild. Patient notes that things have been the same since last visit. Denies any eye pain or flashes of light. Notes that floater has been unchanged since last visit. Denies any vision changes in both distance and reading. No new concerns today. IMPRESSION / REPORT / PLAN #1 HLA-B27 positive uveitis left eye He is a bit better. He sees his sonar watchstander next week for consideration of methorexate. In the meantime we will continue current Rx, recheck 6 weeks. DIAGNOSIS #1 HLA-B27 positive uveitis left eye CDM Reports - [facility] Id: [id number] Status: Fnl documented in this encounter Plan of Treatment Not on file documented as of this encounter Visit Diagnoses Not on filedocumented in this encounter
--- OUTSIDE RECORDS SUMMARY | 2023-12-31 19:47 | XMS_ITS | Encounter Summary ---
Author Organization [facility] Address [address] [place] [address] Care Team Providers Care Survey Research Analyst Name Role Phone Unavailable Primary Care Provider Unavailabl e Encounter Details Date Type Department Care Team (Late st Contact Info) Description 06/26/2008 Historical Ophthalmology [facility] Gary Wellington M.D. [address] [place] [phone] Social History Tobacco Use Types Packs/Day Years Used Date Smoking Tobacco: Never Assessed Sex and Gender Information Value Date Recorded Sex Assigned at Male 08/28/2017 5:25 PM CDT Gender Identity Male 08/28/2017 5:25 PM CDT Sexual Orientation Straight 08/28/2017 5: 25 PM CDT documented as of this encounter Progress Notes * Gary Wellington M.D. - 06/26/2008 8:37 AM CDT Eye General HISTORY OF PRESENT ILLNESS 37 year old male here for evaluation of iritis/uveitis which began May 06, 2008 in his left eye. Hereports that his vision in his left eye has been blurry throughout this episode. He currently has left eye discomfort he rates at 2/10 pain. He previously had an episode of iritis in his left eye 7 years ago which cleared up in a few weeks. First episode of inflammation in 2001 in left eye. This is his second episode. First episode required a sub Tenon's injection, vision responded well. Review of labs drawn on 05/06/2008: HLA-B27 positive, CBC ok, Sed rate 6, ILAN negative, Lyme negative, RA negative, RPR negative. Had sub-Tenon's injection on May 20, 2008, started on prednisone in April, tapered, then resumed last week. IMPRESSION / REPORT / PLAN #1 HLA-B27 positive uveitis left eye Will get OCT of macula left eye. Discussed at length. OCT confirms CME. He is currently taking the prednisone tid. We will switch toone 30mg dose in the morning. Continue topical steroids 6- 8x/day. Recheck 3 weeks. [facility] Id: [id number] Status: Fnl documented in this encounter Plan of Treatment Not on file documented as of this encounter Visit Diagnoses Not on filedocumented in this encounter
--- OUTSIDE RECORDS SUMMARY | 2023-12-31 19:47 | XMS_ITS | Referral Summary ---
Author Organization [facility] Address [address] [place] [id number] Care Team Providers Care System Software Developer Name Role Phone Unavailable Primary Care Provider Unavailabl e Source Comments Patient records contain information from all sites at [facility]. For routine questions regarding patient records, call [phone] during business hours, M-F 8:00 AM - 5:00 PM Central Time. Record requests for emergency care only can be directed to [phone] at any time.[facility] Allergies Active Allergy Reactions Criticality Noted Date Comments Banana Swelling 10/26/2016 scratchy throat, swelling in mouth Cefuroxime Diarrhea 10/26/2016 Clavulanic Acid Nausea Only,Other (s ee comments) Low 07/08/2019 Fluconazole Edema, suggestive of allergic reaction, i.e., lip, tongue, or throat swelling,Itching,Rash High 03/01/2023 Fluorometholone Rash 06/26/2008 eyes swell shut Pollen Extracts Other (see comments) 10/26/2016 watery eyes, triggers asthma Tetracycline GI intolerance 06/26/2008 nausea and vomiting Watermelon Other (see comments) 10/26/2016 scratchy throat windpipe swells Zolpidem Headache 06/26/2008 Medications Medication Sig Dispensed Refills Start Date End Date Status fluticasone propion-salmeteroL 500-50 mcg/dose diskus inhaler Inhale 1 Inhaler 2 (two) times a day. 10/26/2016 Active albuterol sulfate 90 mcg/actuation aerosol powdr breath activated Inhale 1-2 puffs every 4 (four) hours as needed. Shortness of breath/asthma 10/26/2016 Active budesonide (for_RINOCORT AQUA) 32 mcg/actuation nasal spray Administer 2 application into each nostril 2 (two) times a day. One spray in each nostril. 10/26/2016 Active cetirizine (for_ZyrTEC) 10 mg tablet Take 1 tablet by mouth daily. 10/26/2016 Active olopatadine (PATANOL) 0.1 % ophthalmic solution Administer 1 drop into both eyes 2 (two) times a day. Each eye 10/26/2016 Active raNITIdine (ZANTAC) 150 mg tablet Take 1 tablet by mouth 2 (two) times a day. For relief of heartburn 10/26/2016 Active sulfaSALAzine (for_AZULFIDINE) 500 mg tablet Take 1 tablet by mouth 2 (two) times a day. 10/26/2016 Active zafirlukast (for_ACCOLATE) 10 mg tablet Take 1 tablet by mouth 2 (two) times a day. 10/26/2016 Active dextromethorphan-guai FENesin (MUCINEX DM) 30-600 mg per 12 hr tablet Take 1 tablet by mouth as needed for cough or congestion. 12/27/2013 Active ibuprofen (ADVIL,MOTRIN) 200 mg tablet Take 600 mg by mouth as needed. 04/28/2011 Active naproxen sodium (ALEVE/ANAPROX) 220 mg tablet Take 440 mg by mouth as needed. 04/28/2011 Active pseudoephedrine (SUDAFED) 30 mg tablet Take 30 mg by mouth as needed. 01/18/2013 Active ketotifen (ZADITOR) 0.025 % (0.035 %) ophthalmic solution Administer 1 drop into both eyes as needed. PRN as needed for irritation Active ammonium lactate (AMLACTIN) 12 % cream Apply 1 Application topically as needed. 07/22/2020 Active benzonatate (TESSALON) 200 mg capsule Take 1 capsule by mouth 3 (three) times a day as needed. 09/12/2022 Active famotidine (PEPCID) 20 mg tablet Take 20 mg by mouth as needed for indigestion or heartburn. 07/04/2020 Active ipratropium-albuteroL (DUONEB) 0.5-2.5 mg/3 mL nebulizer solution INHALE 1 VIAL VIA NEBULIZATION 4 TIMES DAILY NEEDED 02/26/2019 Active lifitegrast (Xiidra) 5 % ophthalmic solution Bid both eyes 03/02/2021 Active metoprolol succinate (TOPROL-XL) 25 mg 24 hr tablet Take 1 tablet by mouth daily. 05/28/2021 Active naproxen (NAPROSYN) 500 mg tablet Take 500 mg by mouth every 12 (twelve) hours as needed. 10/11/2018 Active nystatin (MYCOSTATIN) 100,000 unit/mL suspension Take 500,000 Units by mouth as needed. 02/25/2023 Active omeprazole (PriLOSEC) [address] capsule every day 11/06/2021 Active ondansetron ODT (ZOFRAN-ODT) 4 mg disintegrating tablet Dissolve 4 mg in the mouth as needed for nausea or vomiting. 04/04/2023 Active oxyCODONE (ROXICODONE) 5 mg immediate release tablet Every 4 Hours as needed 10/22/2018 Active pantoprazole (PROTONIX) 4 mg/mL injection Infuse 40 mg into a venous catheter daily. 09/15/2022 Active predniSONE (DELTASONE) 20 mg tablet 2 (two) times a day. 02/26/2019 Active triamcinolone (KENALOG) 0.1 % cream 03/12/2022 Act jesenia pantoprazole (PROTONIX) 40 mg EC tablet Take 40 mg by mouth every morning before breakfast. 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 Patient declined 06/26/2023 Social Connection and Isolation Panel [NHANES] A nswer Date Recorded In a typical week, how many times do you talk on the phone with family, friends, or neighbors? Twice a week 05/11/2020 Frequency of Social Gatherings with Friends and Family Not on file 05/11/2020 Attends Hinduism Services Not on file 05/11 Do you belong to any clubs o r organizations such as sabianist groups, unions, fraternal or athletic groups, or school groups? Yes 05/11/2020 How often do you attend meet ings of the clubs or organizations you belong to? Never 05/11/2020 Marital Status Not on file 05/11/2020 AUDIT-C Answer Date Recorded Frequency of Alcohol Consumption Not on file 05/11/2020 Average Number of Drinks Not on file 021 Q3: How often do you have si x or more drinks on one occasion? Never 05/11/2020 Overall Financial Resource Strain (CARDIA) Answe r Date Recorded How hard is it for you to pa y for the very basics like food, housing, medical care, and heating? Not hard at all 05/11/2020 [facility] - Occupational Stress Questionnaire Answer Date Recorded Do you feel stress - tense, restless, nervous, or anxious, or unable to sleep at night because your mind is troubled all the time - these days? Only a little 05/11/2020 Exercise Vital Sign Answer Date Recorde d On average, how many days pe r week do you engage in moderate to strenuous exercise (like a brisk walk)? Patient declined On average, how many minutes do you engage in exercise at this level? Patient declined 06/26/2023 Hunger Vital Sign Answer Date Recorded Within the past 12 months, y ou worried that your food would run out before you got the money to buy more. Patient declined Within the past 12 months, t he food you bought just didn't last and you didn't have money to get more. Patient declined PRAPARE - Transportation Answer Date Re corded In the past 12 months, has l ack of transportation kept you from medical appointments or from getting medications? No 06/09 In the past 12 months, has l ack of transportation kept you from meetings, work, or from getting things needed for daily living? No 06/26/2023 Nutrition Answer Date Recorded Nutrition: EVOO Fat Source Unknown 06/25 On average, how many serving s of fruits and vegetables do you eat per day (serving size is equal to 1 cup or approximately the size of a tennis ball)? 0-2 06/26/2023 Dental Answer Date Recorded Dental: Regular Dentist No 06/26/19 24 Employment Answer Date Recorded Employment status Employed and actively working without restrictions 06/26/2023 Housing Stability Answer Date Recorded What is your living situation today? I have a [facility] place to live 06/26/2023 Education Answer Date Recorded What is the highest level of school you have completed or the highest degree you have received? Associate degree: academic program 03/09/2020 Sex and Gender Information Value Date Recorded Sex Assigned at Male 08/28/2017 5:25 PM CDT Gender Identity Male 08/28/2017 5:25 PM CDT Sexual Orientation Straight 08/28/2017 5: 25 PM CDT Last Filed Vital Signs Vital Sign Reading Time Taken Comments Blood Pressure 131/84 07/01/2023 12:50 PM CDT Pulse 64 07/01/2023 12:50 PM CDT Temperature - - Respiratory Rate - - Oxygen Saturation - - Inhaled Oxygen Concentration - - Weight 113 kg (248 lb 3.8 oz) 07/01/2023 12:50 P M CDT Height 174 cm (5' 8.5) 07/01/2023 12:50 PM CDT Body Mass Index 37.19 07/01/2023 12:50 PM CDT Plan of Treatment Not on file Procedures Procedure Name Priority Date/Time Associated Diagnosis Comments COMPREHENSIVE METABOLIC PANEL, S/P Routine 07/01/2023 9:22 AM CDT Palpitations Dizziness Tachycardia LIPID PANEL, S Routine 10/29/2016 7:05 AM CDT from Last 3 Months or Most Recently Relevant to Health Maintenance Results * (ABNORMAL) Comprehensive Metabolic Panel (07/01/2023 9:22 AM CDT) Potassium, S 4.2 3.6 - 5.2 mmol/L 07/01/2023 10:28 AM CDT DTL Sodium, S 140 135 - 145 mmol/L 07/01/2023 10:28 AM CDT DTL Chloride, S 103 98 - 107 mmol/L 07/01/2023 10:28 AM CDT DTL Bicarbonate, S 28 22 - 29 mmol/L 07/01/2023 10:28 AM CDT DTL Anion Gap 9 7 - 15 07/01/2023 10:28 AM CDT DTL BUN (Blood Urea Nitrogen), S 9 8 - 24 mg/dL 07/01/2023 10:28 AM CDT DTL Creatinine 1.03 0.74 - 1.35 mg/dL 07/01/2023 10:28 AM CDT DTL Estimated GFR (eGFR) 87 >=60 mL/min/BS A 07/01/2023 10:28 AM CDT DTL Comment: Estimated GFR calculated using the 2020 CKD_EPI creatinine equation. Calcium, Total, S 9.2 8.6 - 10.0 mg/dL 07/01/2023 10:28 AM CDT DTL Glucose, S 84 70 - 140 mg/dL 07/01/2023 10:28 AM CDT DTL Protein, Total, S 6.9 6.3 - 7.9 g/dL 07/01/2023 10:28 AM CDT DTL Albumin, S 4.5 3.5 - 5.0 g/dL 07/01/2023 10:28 AM CDT DTL Aspartate Aminotransferase (AST), S 19 8 - 48 U/L 07/01/2023 10:28 AM CDT DTL Alkaline Phosphatase, S 34(L) 40 - 129 U/L 07/01/2023 10:37 AM CDT DTL Alanine Aminotransferase (ALT), S 25 7 - 55 U/L 07/01/2023 10:28 AM CDT DTL Bilirubin, Total, S 0.2 0.0 - 1.2 mg/dL 07/01/2023 10:28 AM CDT DTL Blood (Blood, Venous) 07/01/2023 9:22 AM CDT 07/01/2023 9:56 AM CDT Sonya Weiner APRN, C.N.P. LAB BLOOD ADD-ON Performing Organization Address [facility]/State/ZIP Co de Phone Number [facility] [address] [place] [address], [facility] [address] [place] [address] * (ABNORMAL) Lipid Panel (10/29/2016 7:05 AM CDT) Cholesterol, Total 218(H) SeeComment MG/DL [facility] Comment: ? REFERENCE VALUE ? Desirable: < 200 ? Borderline high: 200 - 239 ? High: > or = 240 ? Triglycerides 76 SeeComment MG/DL [facility] Comment: ? REFERENCE VALUE ? Normal: <150 ? Borderline high: 150-199 ? High: 200-499 ? Very high: > or =500 ? Cholesterol, Non-HDL, Calculated 163(H) SeeComment MG/DL [facility] Comment: ? REFERENCE VALUE ? Desirable: <130 ? Above Desirable: 130-159 ? Borderline high: 160-189 ? High: 190-219 ? Very high: > or =220 ? Cholesterol, HDL, S 55 >=40 MG/DL [facility] Calculated LDL 148(H) SeeComment MG/DL [facility] Comment: ? REFERENCE VALUE ? Desirable: <100 ? Above Desirable: 100-129 ? Borderline high: 130-159 ? High: 160-189 ? Very high: > or =190 ? 10/29/2016 7:05 AM CDT 10/29/2016 7:05 AM CDT Gary Lind M.D. LAB BLOOD ADD-ON [facility] [address] [place] [address], [facility] from Last 3 Months or Most Recently Relevant to Health Maintenance
--- OUTSIDE RECORDS SUMMARY | 2023-12-31 19:47 | XMS_ITS | Encounter Summary ---
Author Organization [facility] Address [address], [place] [address] Care Team Providers Care Corn Husk Baler Name Role Phone Gary Foreman MD Primary Care Provider [phone] Encounter Details Date Type Department Care Team (Late st Contact Info) Description 09/27/2023 Notes/Orders [facility] [address] [place] [id number] Martin Lima MD [address] [place] [id number] Routine medical exam Social History Tobacco Use Types Packs/Day Years Used Date Smoking Tobacco: Never Smokeless Tobacco: Never Alcohol Use Standard Drinks/Week Comments Yes 0 (1 standard drink = 0.6 oz pur e alcohol) Occasional Sex and Gender Information Value Date Recorded Sex Assigned at Not on file Gender Identity Not on file Sexual Orientation Not on file documented as of this encounter Plan of Treatment Upcoming Encounters Date Type Department Care Team (Late st Contact Info) Description 09/17/2024 8:15 AM CDT Appointment Rheumatology at [facility] [address] [phone] Alexsander Quick MD [address] [place], [place] [id number] Scheduled Orders Name Type Priority Associated Diagnoses Orde r Schedule DNA Analysis Discrete Sequence Variation Panel (Blood) (Initial) Lab Routine Routine medical exam Expected: 09/27/2023 (Approximate), Expires: 03/28/2024 documented as of this encounter Visit Diagnoses Diagnosis Routine medical exam Routine general medical examination at a health care facility documented in this encounter Care Teams Corn Husk Baler Relationship Specialty Start Date End Date Gary Foreman MD [address] [place] [address] PCP - General 07/12/10 documented as of this encounter
--- OUTSIDE RECORDS SUMMARY | 2023-12-31 19:47 | XMS_ITS | Encounter Summary ---
Author Organization [facility] Address [address] [place] [address] Care Team Providers Care Meeting Manager Name Role Phone Unavailable Primary Care Provider Unavailabl e Encounter Details Date Type Department Care Team (Late st Contact Info) Description 03/14/2009 Historical Ophthalmology [facility] Gary Wellington M.D. [address] [place] [phone] Social History Tobacco Use Types Packs/Day Years Used Date Smoking Tobacco: Never Assessed Sex and Gender Information Value Date Recorded Sex Assigned at Male 08/28/2017 5:25 PM CDT Gender Identity Male 08/28/2017 5:25 PM CDT Sexual Orientation Straight 08/28/2017 5: 25 PM CDT documented as of this encounter Progress Notes * Gary Wellington M.D. - 03/14/2009 7:00 AM CST Eye General CHIEF COMPLAINT 6 week follow up on uveitis left eye. HISTORY OF PRESENT ILLNESS This is a 38 year old male here for a 6 week follow up on HLA-B27 positive uveitis left eye. Visionhas been stable. Patient denies ocular pain. Floaters alone; left eye; x 8 months; constantly. Patient denies flashes of light. IMPRESSION / REPORT / PLAN #1 HLA-B27 positive uveitis left eye Both eyes are quiet on methotrexate. He is now off prednisone, eyes are quiet, no change in meds, recheck 2 months. DIAGNOSIS #1 HLA-B27 positive uveitis left eye CDM Reports - EYEGEN Id: [id number] Status: Fnl documented in this encounter Plan of Treatment Not on file documented as of this encounter Visit Diagnoses Not on filedocumented in this encounter
--- OUTSIDE RECORDS SUMMARY | 2023-12-31 19:47 | XMS_ITS | Encounter Summary ---
Author Organization [facility] Address [address] [place] [address] Care Team Providers Care Malt Liquors Sales Supervisor Name Role Phone Unavailable Primary Care Provider Unavailabl e Encounter Details Date Type Department Care Team (Late st Contact Info) Description 07/11/2009 Historical Ophthalmology [facility] Gary Wellington M.D. [address] [place] [phone] Social History Tobacco Use Types Packs/Day Years Used Date Smoking Tobacco: Never Assessed Sex and Gender Information Value Date Recorded Sex Assigned at Male 08/28/2017 5:25 PM CDT Gender Identity Male 08/28/2017 5:25 PM CDT Sexual Orientation Straight 08/28/2017 5: 25 PM CDT documented as of this encounter Progress Notes * Gary Wellintgon M.D. - 07/11/2009 7:38 AM CDT Eye General CHIEF COMPLAINT uveitis left eye follow up HISTORY OF PRESENT ILLNESS 38 year old male here for a follow up for uveitis left eye. Patient feels that his vision has remained stable since the last visit. Floaters alone; left eye; x 1 year; constantly, no changes. Patientdenies any flashes of light or diplopia. Patient denies ocular pain. IMPRESSION / REPORT / PLAN #1 HLA-B27 positive uveitis left eye Recheck 3 months. Eyes are quiet. From an eye standpoint we could decrease the methotrexate. I will write his cloth picker to give him an update on the eye status. He has been getting bloodschecked with him (Dr. Irene at [facility]). DIAGNOSIS #1 HLA-B27 positive uveitis left eye CDM Reports - EYEGEN Id: [id number] Status: Fnl documented in this encounter Plan of Treatment Not on file documented as of this encounter Visit Diagnoses Not on filedocumented in this encounter
--- OUTSIDE RECORDS SUMMARY | 2023-12-31 19:47 | XMS_ITS | Encounter Summary ---
Author Organization [facility] Address [address] [place] [address] Care Team Providers Care Research Attorney Name Role Phone Unavailable Primary Care Provider Unavailabl e Encounter Details Date Type Department Care Team (Late st Contact Info) Description 07/09/2008 Historical Ophthalmology [facility] Gary Wellington M.D. [address] [place] [phone] Social History Tobacco Use Types Packs/Day Years Used Date Smoking Tobacco: Never Assessed Sex and Gender Information Value Date Recorded Sex Assigned at Male 08/28/2017 5:25 PM CDT Gender Identity Male 08/28/2017 5:25 PM CDT Sexual Orientation Straight 08/28/2017 5: 25 PM CDT documented as of this encounter Progress Notes * Gary Wellington M.D. - 07/09/2008 7:16 AM CDT Eye General CHIEF COMPLAINT discomfort of left eye HISTORY OF PRESENT ILLNESS This is a 37 year old male here for discomfort in the left eye. Pain, left eye, x 5 days, on and off. Patient reports pain at a level of 2/10. It can be worse and is associating it with working on the computer. Vision is a bit more blurry in the past week. He has floaters in left eye which seem to be more at times. Patient states he has intermittent flashes of light in left eye and is getting more frequent in the past week. He has HLA-B27 positive uveitis left eye. IMPRESSION / REPORT / PLAN #1 HLA-B27 positive uveitis left eye He appears to be coming along well, no increase in inflammation, vision improved. Contiue current Rx, recheck 07/23. DIAGNOSIS #1 HLA-B27 positive uveitis left eye CDM Reports - EYEGEN Id: [id number] Status: Fnl documented in this encounter Plan of Treatment Not on file documented as of this encounter Visit Diagnoses Not on filedocumented in this encounter
--- OUTSIDE RECORDS SUMMARY | 2023-12-31 19:47 | XMS_ITS | Clinical Summary ---
Author Organization [facility] Address [address] [place] [address] Care Team Providers Care Real Estate Officer Name Role Phone Cezar Esparza Primary Care Provider [phone] Aspen Weiner LASER ENGRAVER TEAM ASSEMBLER Unavaila ble Allergies Active Allergy Reactions Criticality Noted Date Comments Banana Swelling Low 10/26/2016 scratchy throat, swelling in mouth scratchy throat, swelling in mouth Cefuroxime Diarrhea High 03/30/2008 Has since tolerated cefazolin & cefzil Citrullus Vulgaris Angioedema,Other (See Comments) High 10/26/2016 scratchy throat windpipe swells Scratchy throat, windpipe swells scratchy throat windpipe swells Clavulanic Acid GI Disturbance Low 07/08/2019 Fluorometholone Diarrhea,Swelling,Ot her (See Comments),Rash High 05/23/2008 eyes swell shut Comment: edema, Comment: edema Seasonal Allergies Other (See Comments),Difficulty breathing 10/26/2016 watery eyes, triggers asthma watery eyes, triggers asthma Tetracyclines & Related Diarrhea,GI Disturbance,Nausea and Vomiting Low 06/26/2008 nausea and vomiting Zolpidem Headache,Nausea and Vomiting,Other (See Comments) High 07/21/2006 PN: Migraines headaches Medications Medication Sig Dispensed Refills Start Date End Date Status Cetirizine HCl (ALLERGY, CETIRIZINE, PO) every day 11/06/2021 Active omeprazole (PRILOSEC) [address] capsule every day 11/06/2021 Active SULFASALAZINE PO every day 11/06/2021 Active ZAFIRLUKAST PO twice a day 11/06/2021 Active albuterol (PROAIR HFA/PROVENTIL HFA/VENTOLIN HFA) 108 (90 Base) MCG/ACT inhaler once 12/05/2020 Active fluticasone-salmete rol (ADVAIR) 250-50 MCG/ACT inhaler Inhale 1 puff into the lungs every 12 hours 05/04/2021 Active ipratropium - albuterol 0.5 mg/2.5 mg/3 mL (DUONEB) 0.5-2.5 (3) MG/3ML neb solution INHALE 1 VIAL VIA NEBULIZATION 4 TIMES DAILY NEEDED 04/06/2022 Active metoprolol succinate ER (TOPROL XL) 25 MG 24 hr tablet Take 25 mg by mouth 02/03/2022 Active ketotifen (ZADITOR) 0.025 % ophthalmic solution Apply 1 drop to eye Active famotidine (PEPCID) 20 MG tablet Take 20 mg by mouth 07/04/2020 Active benzonatate (TESSALON) 200 MG capsuleIndications: Moderate persistent asthma with acute exacerbation Take 1 capsule (200 mg) by mouth 3 times daily as needed for cough 30 capsule 09/12/2022 Active Active Problems Problem Noted Date Diagnosed Date Knee pain 02/27/2008 Social History Tobacco Use Types Packs/Day Years Used Date Smoking Tobacco: Never Smokeless Tobacco: Never Tobacco Cessation:Counseling Given: Not Answered Adolescent Education Answer Date Record ed Getting School Help Needed Not on file 01/02 Sex and Gender Information Value Date Recorded Sex Assigned at Not on file Gender Identity Not on file Sexual Orientation Not on file Last Filed Vital Signs Vital Sign Reading Time Taken Comments Blood Pressure 126/71 09/12/2022 12:04 PM CDT Pulse 110 09/12/2022 12:04 PM CDT Temperature 37 ??C (98.6 ??F) 09/12/2022 12:04 PM CDT Respiratory Rate 14 09/12/2022 12:04 PM CDT Oxygen Saturation 100% 09/12/2022 12:04 PM CDT Inhaled Oxygen Concentration - - Weight - - Height - - Body Mass Index - - Plan of Treatment Health Maintenance Due Date Last Done Comments ADVANCE CARE PLANNING 1970 ANNUAL REVIEW OF HM ORDERS 1970 ASTHMA ACTION PLAN 1970 ASTHMA CONTROL TEST 1970 CT COLONOGRAPHY 1970 FIT 1970 FLEX SIG 1970 GLUCOSE 1970 sDNA (Cologuard) 1970 COLONOSCOPY 1980 COLORECTAL CANCER SCREENING 1980 HIV SCREENING 1985 HEPATITIS C SCREENING 1988 HEPATITIS B IMMUNIZATION (1 of 3 - 19+ 3-dose series) 1989 01/20/2005, 08/19/2004, 07/08/2004 LIPID 2010 YEARLY PREVENTIVE VISIT 01/01/2023 01/01/2022 PHQ-2 (once per calendar year) 2023 COVID-19 Vaccine ( - 2023- season) 2023 01/18/2021, 07/19/2020, 06/28/2020 INFLUENZA VACCINE (#1) 2023 2, 12/31/2020, 12/31/2020, Additional history exists DTAP/TDAP/TD IMMUNIZATION (4 - Td or Tdap) 09/13/2031 09/12/2021, 01/03/2012, 05/28/2005, Additional history exists Pneumococcal Vaccine: Pediatrics (0 to 5 Years) and At-Risk Patients (6 to 64 Years) Completed 01/01/2022, 06/06/2014 ZOSTER IMMUNIZATION Completed 01/01/2022, HPV IMMUNIZATION Aged Out No longer e ligible based on patient's age to complete this topic MENINGITIS IMMUNIZATION Aged Out No l onger eligible based on patient's age to complete this topic RSV MONOCLONAL ANTIBODY Aged Out No l onger eligible based on patient's age to complete this topic Care Teams Real Estate Officer Relationship Specialty Start Date End Date Cezar Esparza [address] [place] [address] PCP - General Family Medicine 02/11/21 Aspen Weiner APRN TEAM ASSEMBLER [address] [place], [place] [address] [address] Nurse Practitioner Neurology 02/11/21
--- OUTSIDE RECORDS SUMMARY | 2023-12-31 19:47 | XMS_ITS | Encounter Summary ---
Author Organization [facility] Address [address] [place] [address] Care Team Providers Care Court Monitor Name Role Phone Unavailable Primary Care Provider Unavailabl e Encounter Details Date Type Department Care Team (Late st Contact Info) Description 07/23/2008 Historical Ophthalmology RST OPH Gary Wellington M.D. [address] [place] [phone] Social History Tobacco Use Types Packs/Day Years Used Date Smoking Tobacco: Never Assessed Sex and Gender Information Value Date Recorded Sex Assigned at Male 08/28/2017 5:25 PM CDT Gender Identity Male 08/28/2017 5:25 PM CDT Sexual Orientation Straight 08/28/2017 5: 25 PM CDT documented as of this encounter Progress Notes * Gary Wellington M.D. - 07/23/2008 8:32 AM CDT Eye General CHIEF COMPLAINT Iritis left eye follow up HISTORY OF PRESENT ILLNESS This 37 year old male returns for a follow for Iritis left eye. Patient notes improvement in visionsince last visit. He denies flashes, diplopia, Patient denies ocular pain. He notes constant floater in the left eye since three weeks ago. IMPRESSION / REPORT / PLAN #1 HLA-B27 positive uveitis left eye He appears to be coming along well, no increase in inflammation, vision significantly improved. Decrease prednisone to 20 mg PO daily, continue PF 6-8 times per day. Recheck 3 weeks. DIAGNOSIS #1 HLA-B27 positive uveitis left eye CDM Reports - EYEGEN Id: [id number] Status: Fnl documented in this encounter Plan of Treatment Not on file documented as of this encounter Visit Diagnoses Not on filedocumented in this encounter
--- OUTSIDE RECORDS SUMMARY | 2023-12-31 19:47 | XMS_ITS | Encounter Summary ---
Author Organization [facility] Address [address] [place] [address] Care Team Providers Care Cripple Worker Name Role Phone Unavailable Primary Care Provider Unavailabl e Encounter Details Date Type Department Care Team (Late st Contact Info) Description 08/16/2008 Historical Ophthalmology RST OPH Gary Wellington M.D. [address] [place] [phone] Social History Tobacco Use Types Packs/Day Years Used Date Smoking Tobacco: Never Assessed Sex and Gender Information Value Date Recorded Sex Assigned at Male 08/28/2017 5:25 PM CDT Gender Identity Male 08/28/2017 5:25 PM CDT Sexual Orientation Straight 08/28/2017 5: 25 PM CDT documented as of this encounter Progress Notes * Gary Wellington M.D. - 08/16/2008 7:22 AM CDT Eye General HISTORY OF PRESENT ILLNESS 38 year old male here for 3 week recheck improving HLA-B27 positive uveitis left eye. Prednisone was decreased to 20 mg last visit and Pred forte was decreased to 6-8X/day although he has not been using it at all. Patient reports that his eye feels much better. IMPRESSION / REPORT / PLAN #1 HLA-B27 positive uveitis left eye He appears to be coming along well, no increase in inflammation, vision stable. Decrease prednisone to 15 mg PO daily, restart PF 3 times per day. Recheck 3 weeks. DIAGNOSIS #1 HLA-B27 positive uveitis left eye CDM Reports - EYEGEN Id: [id number] Status: Fnl documented in this encounter Plan of Treatment Not on file documented as of this encounter Visit Diagnoses Not on filedocumented in this encounter
--- OUTSIDE RECORDS SUMMARY | 2023-12-31 19:47 | XMS_ITS | Encounter Summary ---
Author Organization [facility] Address [address] [place] [address] Care Team Providers Care Meal Attendant Name Role Phone Unavailable Primary Care Provider Unavailabl e Encounter Details Date Type Department Care Team (Late st Contact Info) Description 10/15/2008 Historical Ophthalmology RST OPH Gary Wellington M.D. [address] [place] [phone] Social History Tobacco Use Types Packs/Day Years Used Date Smoking Tobacco: Never Assessed Sex and Gender Information Value Date Recorded Sex Assigned at Male 08/28/2017 5:25 PM CDT Gender Identity Male 08/28/2017 5:25 PM CDT Sexual Orientation Straight 08/28/2017 5: 25 PM CDT documented as of this encounter Progress Notes * Gary Wellington M.D. - 10/15/2008 7:52 AM CDT Eye General CHIEF COMPLAINT follow up uveitis left eye HISTORY OF PRESENT ILLNESS Patient returns for a follow-up on Uveitis, left eye. Denies any changes in vision from last visit.Denies flashing lights. Floater, left eye, unchanged from last visit. JJL: Doing well since last visit. No new complaints. IMPRESSION / REPORT / PLAN #1 HLA-B27 positive uveitis left eye He continues to have active inflammation despite prednisone and topical prednisolone. He may benefit from methotrexate. He will call with his assistant drafter's name and address, I will write him with the suggestion. Continue current Rx. Recheck 1 month CDM Reports - EYEGEN Id: [id number] Status: Fnl documented in this encounter Plan of Treatment Not on file documented as of this encounter Visit Diagnoses Not on filedocumented in this encounter
--- OUTSIDE RECORDS SUMMARY | 2023-12-31 19:47 | XMS_ITS ---
Author Organization [facility] Address [address] [place] [id number] Care Team Providers Care Screw Machine Adjuster Automatic Name Role Phone Unavailable Unavailable Unavailable Surgery Details Not on file Complications Check Surgery Details section. Procedure Estimated Blood Loss Check Surgery Details section. Procedure Findings Check Surgery Details section. Procedure Specimens Taken Check Surgery Details section.
--- OUTSIDE RECORDS SUMMARY | 2023-12-31 19:47 | XMS_ITS | Referral Summary ---
Author Organization [facility] Address [address] [place] [address] Care Team Providers Care Knife Edger Name Role Phone Cezar Esparza Primary Care Provider [phone] Aspen Weiner WOOD CHOPPER VEGETABLE PREPARER Unavaila ble Allergies Active Allergy Reactions Criticality [...] Mass Index - - Plan of Treatment Not on file Care Teams Knife Edger Relationship Specialty Start Date End Date Cezar Esparza [address] [place] [address] PCP - General Family Medicine 02/11/21 Aspen Weiner APRN VEGETABLE PREPARER [address] [place] [address] [id number] [place] [address] Nurse Practitioner Neurology 02/11/21
--- OUTSIDE RECORDS SUMMARY | 2023-12-31 19:47 | XMS_ITS | Encounter Summary ---
Author Organization [facility] Address [address] [place] [address] Care Team Providers Care Forcer Maker Name Role Phone Unavailable Primary Care Provider Unavailabl e Encounter Details Date Type Department Care Team (Late st Contact Info) Description 09/06/2008 Historical Ophthalmology RST OPH Gary Wellington M.D. [address] [place] [phone] Social History Tobacco Use Types Packs/Day Years Used Date Smoking Tobacco: Never Assessed Sex and Gender Information Value Date Recorded Sex Assigned at Male 08/28/2017 5:25 PM CDT Gender Identity Male 08/28/2017 5:25 PM CDT Sexual Orientation Straight 08/28/2017 5: 25 PM CDT documented as of this encounter Progress Notes * Gary Wellington M.D. - 09/06/2008 10:01 AM CDT Eye General CHIEF COMPLAINT Three follow up uveitis left eye HISTORY OF PRESENT ILLNESS Patient is here for a three follow up uveitis left eye. Notes vision is good and his left eye feelsmuch better. The patient describes a floater in left eye for the past few months, which is comes and goes, mild. Patient denies ocular pain, flashes of lights and diplopia. LSS: Used the drops sporadically, and hasn't put any in for 4-5 days ago. IMPRESSION / REPORT / PLAN #1 HLA-B27 positive uveitis left eye He appears to be coming along well, no increase in inflammation, vision stable. Has been taking 10 mg of Prednisone (plan was for him to decrease to 15 mg). He recently saw Rheum,and they bumped him to 20 mg. 1 week ago decreased to 10 mg. Restart PF BID, left eye. Stay on prednisone 10 mg, recheck 1 month. DIAGNOSIS #1 HLA-B27 positive uveitis left eye CD[facility] Id: [id number] Status: Fnl documented in this encounter Plan of Treatment Not on file documented as of this encounter Visit Diagnoses Not on filedocumented in this encounter
--- OUTSIDE RECORDS SUMMARY | 2023-12-31 19:47 | XMS_ITS | Encounter Summary ---
Author Organization [facility] Address [address] [place] [address] Care Team Providers Care Master Fire Control Technician Name Role Phone Unavailable Primary Care Provider Unavailabl e Encounter Details Date Type Department Care Team (Late st Contact Info) Description 02/04/2009 Historical Ophthalmology RST OPH Gary Wellington M.D. [address] [place] [phone] Social History Tobacco Use Types Packs/Day Years Used Date Smoking Tobacco: Never Assessed Sex and Gender Information Value Date Recorded Sex Assigned at Male 08/28/2017 5:25 PM CDT Gender Identity Male 08/28/2017 5:25 PM CDT Sexual Orientation Straight 08/28/2017 5: 25 PM CDT documented as of this encounter Progress Notes * Gary Wellington M.D. - 02/04/2009 7:55 AM CDT Eye General CHIEF COMPLAINT Follow up Uveitis HISTORY OF PRESENT ILLNESS 38 year old male here for a Follow up Uveitis. The patient describes floaters in left eye for the past 9 months, which is comes and goes, moderate. Patient notes that it is just one single floater now. Patient feels that his vision has remained stable since the last visit. Patient denies any flashes of light or diplopia. Patient denies ocular pain. Patient quit taking Pred Forte 3 weeks ago. Prednisone has been elevated to 20mg/day for asthma. IMPRESSION / REPORT / PLAN #1 HLA-B27 positive uveitis left eye Both eyes are quiet on methotrexate. His prednisone is up due to asthma. Continue current Rx, tapersystemic prednisone as tolerated by asthma, recheck 6 weeks. CDM Reports - EYEGEN Id: [id number] Status: Fnl documented in this encounter Plan of Treatment Not on file documented as of this encounter Visit Diagnoses Not on filedocumented in this encounter
--- OUTSIDE RECORDS SUMMARY | 2023-12-31 19:47 | XMS_ITS | Clinical Summary ---
Author Organization [facility] Address [address] [place] [address] Care Team Providers Care Nutrition Services Associate Name Role Phone Unavailable Primary Care Provider Unavailabl e Source Comments Patient records contain information from all sites at [facility]. For routine questions regarding patient records, call [phone] during business hours, M-F 8:00 AM - 5:00 PM Central Time. Record requests for emergency care only can be directed to [phone] at any time.[facility] Allergies Active Allergy Reactions Criticality Noted Date [...] Tobacco: Never Tobacco Cessation:Counseling Given: Not Answered [facility] Utilities Answer Date Recorded In the past 12 months has e [employer], gas, oil, or water [employer] threatened to shut off services in your home? Patient declined 06/26/2023 Social Connection and Isolation Panel [NHANES] A nswer Date Recorded In a typical week, how many times do you talk on the phone with family, friends, or neighbors? Twice a week 05/11/2020 Frequency of Social Gatherings with Friends and Family Not on file 05/11/2020 Attends Jewish Services Not on file 05/11 Do you belong to any clubs o r organizations such as latter day groups, unions, fraternal or athletic groups, or [...] and heating? Not hard at all 05/11/2020 [facility] - Occupational Stress [...] your living situation today? I have a [facility] place to live 06/26/2023 Education Answer Date [...] 07/01/2023 12:50 PM CDT Plan of Treatment Health Maintenance Due Date Last Done Comments CT Colonography 1970 Cologuard 1970 FIT 1970 HIV Screening 1970 Hepatitis C Screening 1970 Hepatitis B Vaccines (1 of 3 - 19+ 3-dose series) 1989 Lipid (Cholesterol) Screening 01/01/2023, 10/23/2020, 01/10/2019, Additional history exists Depression Screening (Annual PHQ-2) 04/11/2023 COVID-19 Vaccine (2023-2 5 season) 2023 01/18/2021, 07/19/2020, 06/28/2020 Influenza Vaccine (#1) 2024 , 01/01/2022, 12/31/2020, Additional history exists Fasting Glucose for Diabetes Screening 06/30/2026 07/01/2023, 01/01/2022, 10/23/2020, Additional history exists Colonoscopy 11/13/2028 11/13/2018 Colorectal Cancer Screening 11/13/2028 DTaP,Tdap,and Td Vaccines (4 - Td or Tdap) 09/13/2031 09/12/2021, 01/03/2012, 05/28/2005, Additional history exists Pneumococcal vaccine (0-64 years) Completed 022, 06/06/2014 Zoster Vaccines Completed 01/01/2022, 10/23/2020 Procedures Procedure Name Priority Date/Time Associated Diagnosis [...] Sonya Weiner APRN, C.N.P. LAB BLOOD ADD-ON [facility] [address] [place] [address], [facility] [address] [place] [address] * (ABNORMAL) Lipid Panel (10/29/2016 7:05 AM CDT) Cholesterol, Total 218(H) SeeComment MG/DL [facility] Comment: ? REFERENCE VALUE ? Desirable: < 200 ? Borderline high: 200 - 239 ? High: > or = 240 ? Triglycerides 76 SeeComment MG/DL [facility] Comment: ? REFERENCE VALUE ? Normal: <150 ? Borderline high: 150-199 ? High: 200-499 ? Very high: > or =500 ? Cholesterol, Non-HDL, Calculated 163(H) SeeComment MG/DL [facility] Comment: ? REFERENCE VALUE ? Desirable: <130 ? Above Desirable: 130-159 ? Borderline high: 160-189 ? High: 190-219 ? Very high: > or =220 ? Cholesterol, HDL, S 55 >=40 MG/DL [facility] Calculated LDL 148(H) SeeComment MG/DL [facility] Comment: ? REFERENCE VALUE ? Desirable: <100 ? Above Desirable: 100-129 ? Borderline high: 130-159 ? High: 160-189 ? Very high: > or =190 ? 10/29/2016 7:05 AM CDT 10/29/2016 7:05 AM CDT Gary Lind M.D. LAB BLOOD ADD-ON [facility] [address] [place] [address], [facility] from Last 3 Months or Most Recently Relevant to Health Maintenance
--- OUTSIDE RECORDS SUMMARY | 2023-12-31 19:47 | XMS_ITS | Clinical Summary ---
Author Organization [facility] Address [address], [place] [address] Care Team Providers Care Mercury Washer Name Role Phone Gary Foreman MD Primary Care Provider [phone] Source Comments You are receiving this document as you are listed as the primary care provider,follow-up provider, or the patient has been referred to you for consultation.This is in compliance with the Medicare and[facility] EHR Incentive Program,which states Providers who transition their patient to another setting of careor provider of care or refers their patient to another provider of care shouldprovide summary care record for each transition of care or referral. [facility] Allergies Active Allergy Reactions Criticality Noted Date Comments Cefuroxime Diarrhea Medium 07/31/2014 Citrullus Vulgaris Other, see comments,Angioedema High 10/26/2016 Scratchy throat, windpipe swells Tetracyclines & Related Diarrhea 11/05/2013 Zolpidem Other, see comments 11/05/2013 PN: Migraines Medications Medication Sig Dispensed Refills Start Date End Date Status ALBUTEROL SULFATE HFA IN Inhale 2 puffs as needed. 10/25/2013 Active cetirizine (ALL DAY ALLERGY) 10 MG tablet Take 1 Tablet (10 mg) by mouth daily. 08/25/2013 Active budesonide (AKA RHINOCORT) 32 MCG/ACT nasal spray 1 [place] by Nasal route daily. 08/25/2013 Active zafirlukast (AKA ACCOLATE) 10 MG tablet Take 1 Tablet (10 mg) by mouth daily. 09/30/2013 Active fluticasone-salme terol (ADVAIR DISKUS) 250-50 MCG/DOSE diskus inhalerIndication s:KENAN SANCHEZ TueJul 31, 2014 3:31 PM Received from: External Pharmacy Indications: PN: KENAN SANCHEZ TueJul 31, 2014 3:31 PM Received from: External Pharmacy 5 07/19/2014 Active diclofenac (VOLTAREN) 1 % gel Apply 2 g to skin 4 times daily as needed for Other (hand, knee, other joint pain). 100 g 3 11/20/2018 Active pantoprazole (PROTONIX IV) 40 MG injection Administer 40 mg intravenously every 24 hours. 09/15/2022 Active sulfaSALAzine (AZULFIDINE) 500 MG tabletIndications :Iritis Take 1 Tablet (500 mg) by mouth two times a day. 180 Tablet 3 09/19/2023 Active Active Problems Problem Noted Date Diagnosed Date Elevated C-reactive protein (CRP) 11/20/2018 Dry eye syndrome of both eyes 08/07/2018 Myalgia 08/07/2018 HLA B27 (HLA B27 positive) 08/02/2016 long-term use of drug 08/04/2015 Fatty liver 08/04/2015 Iron deficiency anemia 08/01/2014 Absolute anemia 07/31/2014 Iritis 11/05/2013 Multiple joint pain 11/05/2013 Encounter for long-term (current) use of medicat ions 11/05/2013 Overview (12/01/2016): Encounter for long-term (current) use of other medications Asthma 09/15/2002 Overview (12/01/2016): Asthma NOS Allergic rhinitis 09/15/2002 Overview (12/01/2016): Rhinitis Allergic NOS Lumbago 09/15/2002 Overview (12/01/2016): Pain Low Back Immunizations Name Administration Dates Next Due Flu Vac (3+ yrs) 01/30/2013, 2,02/13/2011,2008,03/05/2003,04/16/2002,01/22/1999 Flu Vac Preserv Free (3+yrs) 02/13/2011 Fluzone Qiv Multidose Vial 0 .25 (6-35 Mos) 01/24/2017 HepA Adult (19+ yrs) 03/31/2012,06/27/2002 HepB Ped/Adol (0-18 yrs) 01/20/2005,08/19/2004,0 07/08/2004 Influenza IIV4 (Quadrivalent ) 0.5mL (55107) 01/08/2020,01/10/2019,01/16/2018,2015,01/20/2015,12/24/2013,12/11/2013 Influenza, Unspecified Formulation 12/31/2020,,01/22/1999 MMR 08/15/1998 PPSV23 (Pneumovax) 06/06/2014 Pfizer Monovalent 12+ Purple Top 01/18/2021,07/10,06/28/2020 Td 12/06/1998 Td, Preservative Free 01/03/2012 Tdap 05/28/2005 Typhoid (Typhim Vi, IM) 03/29/2012 Zoster RZV (Shingrix) 10/23/2020 Social History Tobacco Use Types Packs/Day Years [...] Sign Reading Time Taken Comments Blood Pressure 144/93 09/15/2022 3:30 PM CDT Pulse 96 09/15/2022 3:30 PM CDT Temperature 36.5 ??C (97.7 ??F) 03/02/2021 9:02 AM CS T Respiratory Rate - - Oxygen Saturation - - Inhaled Oxygen Concentration - - Weight 115.2 kg (254 lb) 09/15/2022 3:30 PM CDT Height - - Body Mass Index - - Plan of Treatment Upcoming Encounters Date Type Department Care Team (Late st Contact Info) Description 09/17/2024 8:15 AM CDT Appointment Rheumatology at [facility] [place] [address] Alexsander Quick MD [address] [place] [address] Health Maintenance Due Date Last Done Comments Colon Cancer Screening Plan Due 1970 PSA Screening Discussion 1970 HIV Screening (Preventive Services) 1986 Adult Preventive Visit 1988 HepB (1) 1989 01/20/2005, 08/09, 07/08/2004 Cholesterol 10/13/2005 10/13/2000, 10/1998, 05/21/1997 COVID-19 Vaccine ( season) 2023 01/18/2021, 07/19/2020, 06/28/2020 Influenza (#1) 2023 12/27/2022, 12/11, 12/31/2020, Additional history exists DTaP/Tdap/Td (4 - Tdap) 09/13/2031 09/13/19, 01/03/2012, 05/28/2005, Additional history exists HepA Completed 03/31/2012, 06/27/2002 Hep C Screening (Preventive Services) Completed 11/05/2013 Pneumococcal Completed 01/01/2022, 06/06/2014 Zoster/Shingles Completed 01/01/2022, 10/23/2020 Hib Aged Out No longer eligi ble based on patient's age to complete this topic IPV (Polio) Aged Out No longer eligi ble based on patient's age to complete this topic MCV4 Aged Out No longer eligi ble based on patient's age to complete this topic Procedures Procedure Name Priority Date/Time Associated Diagnosis Comments HEPATITIS C ANTIBODY, WITH REFLEX Routine 11/05/2013 10:13 AM CDT Iritis CHOL, HDL, LDL NON-FASTING Routine 10/13/2000 3:42 PM CDT from Last 3 Months or Most Recently Relevant to Health Maintenance Results * Hepatitis C Antibody, with Reflex (11/05/2013 10:13 AM CDT) Hepatitis C Antibody Non-React Non-Reacti ve HP CONVERSION 11/05/2013 10:1 3 AM CDT 11/05/2013 12:29 PM CDT Alexsander Quick MD LAB_1 Performing Organization Address [facility] Co de Phone Number HP CONVERSION * (ABNORMAL) Chol, HDL, LDL Non-Fasting (10/13/2000 3:42 PM CDT) Hours Fasting 3.5(LL) 8.0 - 24.0 Hours HP CONVERSION Cholesterol/HDL Ratio Screen 4.2 No normal range HP CONVERSION Cholesterol 191 125 - 199 mg/dL HP CONVERSION HDL Cholesterol 45 30 - 70 mg/dL HP CONVERSION LDL Direct 128 <130 mg/dL HP CONVERSION Comment: Direct LDL Reference Ranges 0-129 ?? Desirable 130-159 Borderline Risk >160 ?High Risk Triglycerides 174 0 - 199 mg/dL HP CONVERSION Comment:Triglyceride obtaine d on nonfasting specimen. 10/13/2000 3:42 PM CDT Gary Foreman MD LAB_1 Performing Organization Address [facility] Co de Phone Number HP CONVERSION from Last 3 Months or Most Recently Relevant to Health Maintenance Care Teams Mercury Washer Relationship Specialty Start Date End Date Gary Foreman MD [address] [place] [address] [facility] - General 07/12/10
--- OUTSIDE RECORDS SUMMARY | 2023-12-31 19:47 | XMS_ITS | Encounter Summary ---
Author Organization [facility] Address [address] [place] [address] Care Team Providers Care Horse Show Manager Name Role Phone Unavailable Primary Care Provider Unavailabl e Encounter Details Date Type Department Care Team (Late st Contact Info) Description 12/30/2008 Historical Ophthalmology RST OPH Gary Wellington M.D. [address] [place] [phone] Social History Tobacco Use Types Packs/Day Years Used Date Smoking Tobacco: Never Assessed Sex and Gender Information Value Date Recorded Sex Assigned at Male 08/28/2017 5:25 PM CDT Gender Identity Male 08/28/2017 5:25 PM CDT Sexual Orientation Straight 08/28/2017 5: 25 PM CDT documented as of this encounter Progress Notes * Gary Wellington M.D. - 12/30/2008 7:32 AM CDT Eye General CHIEF COMPLAINT Follow up Uveitis HISTORY OF PRESENT ILLNESS The patient describes floaters in left eye for the past 8 months, which is constant, mild. Patient is here for follow up HLA-B27 positive uveitis left eye. Patient denies any changes in vision since last visit. Still has mild floater in left eye. Denies flashes and diplopia. Patient deniesocular pain. No new concerns this visit. IMPRESSION / REPORT / PLAN #1 HLA-B27 positive uveitis left eye Both eyes are quiet on methotrexate. We will decrease prednisone to 5mg/day, recheck one month. DIAGNOSIS #1 HLA-B27 positive uveitis left eye CDM Reports - EYEGEN Id: [id number] Status: Fnl documented in this encounter Plan of Treatment Not on file documented as of this encounter Visit Diagnoses Not on filedocumented in this encounter
--- OUTSIDE RECORDS SUMMARY | 2023-12-31 19:47 | XMS_ITS | Clinical Summary ---
Author Organization [employer] [facility] Address [place], [place] [address] Care Team Providers Care Security Analyst Name Role Phone Jon Irene MD Unavailable Soraida Marion MD Unavailable [phone] Alexsander Quick Unavailable [phone] Cezar Esparza MD Primary Care Provider Allergies Active Allergy Reactions Criticality Noted Date Comments Zolpidem Intolerance-Can't Take 07/21/2006 headaches Banana Angioedema 10/26/2016 scratchy throat, swelling in mouth Cefuroxime Diarrhea 03/30/2008 Has since tolerated cefazolin & cefzil Clavulanic Acid Stomach Upset,Nausea Only,*Unknown Low 07/08/2019 Fluconazole Edema,Itching,Rash High 03/01/2023 Fluorometholone Edema,Other - Describe In Comment Field Medium 05/23/2008 Comment: edema, Comment: edema Pollen Extracts Wheezing 10/26/2016 watery eyes, triggers asthma Tetracyclines Diarrhea,Nausea And Vomiting 12/11/2013 Unlisted Allergen (Include Detail In Comments) Edema High 11/13/2018 Watermelon Angioedema 10/26/2016 scratchy throat windpipe swells Medications Medication Sig Dispensed Refills Start Date End Date Status budesonide (RHINOCORT AQUA) (32 mcg each actuation) nasal sprayIndications:Al bobbygy, unspecified, initial encounter Inhale 1 Mcrae into both nostrils 2 times daily. For allergies. 3 Each 2 04/14/2015 Active sulfaSALAzine (AZULFIDINE) 500 mg tabletIndications:Felicity islas Take 1 tablet by mouth 2 times daily. 180 tablet 4 10/11/2018 Active naproxen (NAPROSYN) 500 mg tabletIndications:Felicity islas Take 1 tablet by mouth every 12 hours if needed. 60 tablet 1 10/11/2018 Active cetirizine (ZYRTEC) 10 mg tabletIndications:A llergy, unspecified, initial encounter TAKE 1 TABLET BY MOUTH EVERY DAY 90 tablet 1 11/22/2018 Active famotidine (PEPCID) 20 mg tablet Take 1 Tablet (20 mg) by mouth 2 times daily if needed. 0 07/04/2020 Active albuterol-ipratropi um (DUONEB) (2.5-0.5 mg) in 3 mL NEBULIZATION solutionIndications :Moderate persistent asthma without complication INHALE 1 VIAL VIA NEBULIZATION 4 TIMES DAILY NEEDED 90 mL 1 04/06/2022 Active triamcinolone (ARISTOCORT; KENALOG) 0.1 % cream 03/12/2022 Active pantoprazole (PROTONIX) 40 mg delayed-release tabletIndications:C hronic GERD TAKE 1 TABLET(40 MG) BY MOUTH EVERY DAY 90 Tablet 04/12/2023 Active fluticasone propion-salmeteroL (Advair Diskus) 500-50 mcg/Dose diskus inhalerIndications: Asthma, unspecified asthma severity, unspecified whether complicated, unspecified whether persistent Inhale 1 Puff by mouth every 12 hours. 60 Each 11 08/22/2023 Active zafirlukast 10 mg tabletIndications:A llergy, unspecified, initial encounter Take 1 Tablet (10 mg) by mouth two times daily after meals. 180 Tablet 3 09/06/2023 Active nystatin (MYCOSTATIN) 100,000 unit/mL suspensionIndicatio ns:Thrush Swish and swallow 5 mL (500,000 units) by mouth four times daily. 473 mL 11/15/2023 Active albuterol HFA (PRO-AIR; VENTOLIN; PROVENTIL) 90 mcg/actuation inhalerIndications: Mild persistent asthma without complication TAKE 1 TO 2 PUFFS BY MOUTH EVERY 4 HOURS NEEDED FOR WHEEZING / SHORTNESS OF BREATH 8.5 g 1 11/29/2023 Active Active Problems Problem Noted Date Diagnosed Date Supraventricular tachycardia 05/11/2023 Subacromial bursitis of right shoulder joint AC joint arthropathy 06/28/2022 Paroxysmal SVT (supraventricular tachycardia) Regular astigmatism, bilateral 01/28/2022 Hyperopia, bilateral 01/28/2022 Segmental and somatic dysfunction 01/01/2022 Difficulty sleeping 03/13/2021 Dyspepsia 03/13/2021 Excessive daytime sleepiness 03/13/2021 Posterior synechiae, bilateral 03/19/2019 Recurrent erosion of cornea, left eye 12/27/2018 Overview (12/27/2018): Dec 2018: recurrent left eye corneal erosion. Eosinophilic esophagitis 11/14/2018 Overview (11/14/2018): .Nov 2018: EGD found Esophageal eosinophilia (peak count of 20), also Duodenal intraepithelial lymphocytosis characterized by:a. Increased intraepithelial lymphocytes Pancreatitis 10/23/2018 Overview (03/13/2021): October 2018: NFLD ER. Dry eye syndrome of both eyes 08/07/2018 Hyperlipidemia 10/26/2016 Presbyopia OU 04/06/2016 Other pain disorders related to psychological factors-Ankylosing spondylitis diagnosis 02/16/2011 Depression, major, in remission 12/23/2010 Myalgia 11/09/2010 Chronic iridocyclitis 04/13/2010 Obesity with body mass index 30 or greater 11/01 Overview (03/13/2021): May 2015: Body mass index is 37.58 kg/(m^2). Fatty liver 07/14/2009 Liver masses 07/14/2009 Overview (02/03/2017): Noted on chest CT 2009- referred to specialist 4.10 On ultrasound : As a result of the fatty infiltration of the liver, the small masses seen on high-resolution chest CT are probably obscured. Therefore, and MRI could be considered for additional imaging evaluation. MRI was ordered but was never done. March 2014: ultrasound for recheck was normal other than fatty liver, still consider MRI??. Apr 2014: MRI liver ordered and pending. May 2015: MRI of liver again shows small liver lesions and repeat MRI recommended in 6-12 months so due on or before July: MRI LIver Impression: 1. A few scattered small liver lesions which may represent cysts or hemangiomas and are unchanged. ??No new liver lesions. ??Recommend followup MRI in 1 year to complete documentation of stability.2. Mild to moderate diffuse fatty infiltration of the liver.Repeat MRI 12 months so due Jan 2018. 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 ALLERGY UNSPECIFIED 03/05/2003 Overview (02/08/2012): January 2012: Singulair decreased from 10 to 5 mg due to dry eye symptoms. Monitor Allergies And asthma with change. Lumbago 09/15/2002 Overview (03/13/2021): Pain Low Back Allergic rhinitis 09/15/2002 Overview (03/13/2021): Rhinitis Allergic NOS Asthma 09/15/2002 Overview (03/13/2021): Asthma NOS Mild persistent asthma without complication 05/2001 Overview (05/30/2015): September 2010: spirometry normal, need to continue to evaluate respiratory status. October 2011: normal spirometry. 11/18/2011 ATAQ/Asthma Action plan completed. 02/08/2012 ATAQ/Asthma Action plan completed, ATAQ High, needs repeat when not sick. November 2013: ER visit for asthma in [place] Jan 2014: [place] [facility] Dr. Marion, changed to adviar 250/50, increase to 500/50 in fall, work on weight loss. Spirometry was reportedly normal with no change post BD. May 2014: normal spirometry with Dr. Vega. Insomnia, unspecified 04/12/2001 Overview (01/02/2009): On 60 mg cymbalta- insomnia was a little worse- we are trying to taper down to 20-40 mg cymbalta- Prediabetes Biliary dyskinesia Resolved Problems Problem Noted Date Diagnosed Date Resolved Date Malignant melanoma of left ear 01/01/2022 04/16/2022 Overview (01/01/2022): Followed by Dermatology. Malignant melanoma of skin of ear 03/11/2020 05/04/2021 Iron deficiency anemia 08/01/201408/30 Elevated fasting blood sugar 06/10/2014 01/10/2019 Overview (06/02/2015): 2012: 107 Normal 2013. Patient did prediabetes class. May 2014: fasting 115. May 2015: 109. Screening a1c 5.9. Colon cancer screening 06/06/201410/30 Overview (11/13/2018): 2006 colonoscopy negative. Nov 2018: Colonoscopy negative, due in 10 years so Summer 2028. Pain in joint, multiple sites 11/05/2013 12/20/2013 Generalized anxiety disorder 12/23/2010 12/20/2013 Vitamin D deficiency 08/01/2009 020 Major depressive disorder, r ecurrent episode, moderate 03/10/2009 05/30/2015 Absolute anemia 07/21/2006 08/31/2023 Sprain of neck 09/08/2004 07/21/2006 Depressive disorder, not elsewhere classified 08/21/19 05 03/14/2009 HEADACHE - TENSION 10/04/2003 0 Epistaxis 11/09/2000 05/24/2005 Encounters Date Type Department Care Team Description 11/28/2023 [place] [facility] [place] [address] [place] [address] Cezar Esparza MD Refill Request (Albuterol Hfa) 11/15/2023 10:20 AM CDT Telemedicine [facility] [address] [place] [address] Tanvi Richardson PA Sores In Mouth 11/15/2023 Travel 10/19/2023 2:45 PM CDT Office Visit [facility] [address] [place] [address] Maranda Borja MD [facility] Med (Work comp) 10/19/2023 Travel 10/05/2023 Telephone [facility] [address] [place] [address] Maranda Borja MD from Last 3 Months Immunizations Name Administration Dates Next Due AMB Influenza, IIV3 (Age >=3 years)(Flu Clinic Only) 01/13/2009 AMB Influenza, IIV4 PF (=>6 mos Flulaval,Fluzone Fluarix)(Flu Clinic Only) 01/08/2020 COVID-19 vaccine ([employer] NTGreenPocket 30mcg/0.3mL) PF, MDV 07/19/2020,06/28/2020 Hepatitis A (Adult) 03/31/2012,06/27/2002 Hepatitis B (Peds) 01/20/2005,08/19/2004, 005 Influenza Virus, Unspecified 12/31/2020, 01/24/2017,01/20/2015,2013,01/30/2013,12/31/2011,02/13/2011,1 ,03/05/2003,04/16/2002, 999,01/22/1999 Influenza, IIV3 (Age 6-35 mos) 02/13/2011 Influenza, IIV3 (Age >=3 years) 01/31/20 13,12/31/2011,02/13/2011,2002 Influenza, IIV4 01/01/2022, 9,01/16/2018,2015,01/20/2015,12/11/2013 Influenza, IIV4 (=>6mos) MDV 12/31/2020,01/25/20 17 Influenza,CCIIV4 PRESERV FREE 12/27/2022 MMR 08/15/1998 Pneumococcal Conj 20-valent (Prevnar 20) 01/01/2022 Pneumococcal Poly,23-Valent (Pneumovax) 06/06/2014 Td (Age >=7 Years) 01/03/2012,12/06/1998 Td, Preservative Free (age > = 7 Years) 01/03/2012 Tdap 09/12/2021,05/28/2005 Tuberculin (PPD) 02/25/2011,05/07/2008 Typhoid (injectable) 03/29/2012 Zoster (Shingrix-RZV, recombinant) 01/01/2022, Family History Medical History Relation Name Comments Good Health Brother 1 Good Health Brother 2 Allergies Father Asthma Father Diabetes Father Cancer-colon Maternal Grandmother at 93 Hypertension Maternal Grandmother Alcohol/Drug Maternal Uncle Cancer-colon Paternal Grandfather Other Paternal Grandfather glaucom a Arthritis Paternal Grandmother not alia e if ra Psychiatric illness Son ADD Anesthesia Problem No Family History Cancer-prostate No Family History Heart attack No Family History Relation Name Status Comments Brother 1 Brother 2 Father Maternal Grandmother Maternal Uncle Paternal Grandfather Paternal Grandmother Son Social History Tobacco Use Types Packs/Day Years Used Date Smoking Tobacco: Never Smokeless Tobacco: Never Tobacco Cessation:Counseling Given: Yes Alcohol Use Standard Drinks/Week Comments Yes 0 (1 standard drink = 0.6 oz pur e alcohol) rarely PHQ-2 Answer Date Recorded PHQ-2 TOTAL SCORE 0 08/22/2023 Social Connections Answer Date Recorded Frequency of Communication with Friends and Fami ly 0 05/11/2023 Alcohol Use Answer Date Recorded How often do you have a drink containing alcohol ? 1 08/20/2021 How many drinks containing a lcohol do you have on a typical day when you are drinking? 0 08/20/2021 How often do you have five or more drinks on one occasion? 0 08/20/2021 Financial Resource Strain Answer Date R ecorded Difficulty of Paying Living Expenses 3 05/11/2023 Difficulty of Paying Living Expenses Not on file 05/11/2023 Food Insecurity Answer Date Recorded Worried About Running Out of Food in the Last Ye ar 1 05/11/2023 Transportation Needs Answer Date Record ed Lack of Transportation (Medical) 1 05/11/2023 Housing Stability Answer Date Recorded Unable to Pay for Housing in the Last Year 1 05/11/2023 Sex and Gender Information Value Date Recorded Sex Assigned at Not on file Gender Identity Not on file Sexual Orientation Not on file Obstetrics History Last Filed Vital Signs Vital Sign Reading Time Taken Comments Blood Pressure 142/102 10/19/2023 3:24 PM CDT Pulse 115 10/19/2023 2:56 PM CDT Temperature 37.2 ??C (98.9 ??F) 08/31/2023 4:16 PM CD T Respiratory Rate 16 08/13/2023 12:09 PM CDT Oxygen Saturation 98% 10/19/2023 2:56 PM CDT Inhaled Oxygen Concentration - - Weight 112.9 kg (249 lb) 10/19/2023 2:56 PM CDT Height 170.5 cm (5' 7.13) 08/31/2023 4:16 PM CD T Body Mass Index 38.85 08/31/2023 4:16 PM CDT Plan of Treatment Health Maintenance Due Date Last Done Comments HIV for age 15-65 1985 COVID-19 vaccine series ( season) 2023 01/18/2021, 07/19/2020, 06/28/2020 Influenza for age 50-64 12/11/2023 12/28/19 23, 01/01/2022, 12/31/2020, Additional history exists Depression screening for age 12+ 08/21/2024 08/22/2023, 08/10/2023, 01/01/2022, Additional history exists BMI (ht and wt on same day) for age 18+ 08/30/2024 08/31/2023, 08/22/2023, 11/08/2022, Additional history exists Lipids for age 45-75 08/21/2028 08/22/2023, 01/01/2022, 10/23/2020, Additional history exists Colonoscopy through age 75 11/13/202811/13, 11/13/2018, 11/13/2018, Additional history exists Tetanus booster 09/13/2031 09/12/2021, 12/11, 01/03/2012, Additional history exists Tdap Completed 09/12/2021, 05/28/2005 Hepatitis C screening for age 18-79 Completed 01/01/2022 Pneumococcal series for age 6-64 Aged Out 01/01/2022, 06/06/2014 No longer eligibl e based on patient's age to complete this topic Zoster (shingles) series for age 50+ Completed 01/01/2022, 10/23/2020 Procedures Procedure Name Priority Date/Time Associated Diagnosis Comments LIPID PANEL W REFLEX MEASURED LDL Routine 08/22/2023 9:25 AM CDT Hyperlipidemia, unspecified hyperlipidemia type ANTI HCV Routine 01/01/2022 8:55 AM CDT Need for hepatitis C screening test COLONOSCOPY SCREENING Routine 11/13/2018 12:00 PM CDT Epigastric pain Generalized abdominal pain from Last 3 Months or Most Recently Relevant to Health Maintenance Results * (ABNORMAL) LIPID PANEL W REFLEX MEASURED LDL (08/22/2023 9:25 AM CDT) Pathologist [facility] CHOLESTEROL,TOTAL 246(H) 100 - 199 mg/dL 08/22/2023 6:31 PM CDT [facility] Comment: Cholesterol, Total Reference Ranges Desirable <200 mg/dL Borderline 200-239 mg/dL High >=240 mg/dL TRIGLYCERIDES 70 <150 mg/dL 08/22/2023 6:31 PM CDT [facility] HDL CHOLESTEROL 62 >40 mg/dL 6:31 PM CDT [facility] NON-HDL CHOLESTEROL 184(H) <145 mg/dl 08/22/2023 6:31 PM CDT [facility] CHOL/HDL RATIO 3.97 <4.50 08/22/2023 6:31 PM CDT [facility] LDL CHOLESTEROL 170(H) <=130 mg/dL 08/22/2023 6:31 PM CDT [facility] VLDL CHOLESTEROL 14 <=30 mg/dL 08/22/2023 6:31 PM CDT [facility] PROVIDER ORDERED STATUS RANDOM 08/22/2023 6:31 PM CDT [facility] Blood BLOOD SPECIMEN / Unknown Venipuncture / Unknown 08/22/2023 9:25 AM CDT 08/22/2023 9:25 AM CDT Maranda Borja MD CHEMISTRY [facility] [address] [place] [address], * ANTI HCV (01/01/2022 8:55 AM CDT) HEPATITIS C ANTIBODY Non-React jesenia Non-React jesenia 01/02/2022 5:36 AM CDT [facility] Comment:Antibodies to HCV no t detected; does not exclude the possibility of exposure to HCV. Blood BLOOD SPECIMEN / Unknown Venipuncture / Unknown 01/01/2022 8:55 AM CDT 01/01/2022 8:56 AM CDT Antonieta Stern DO SEND OUTS [facility] [address] [place] [address], * COLONOSCOPY SCREENING (11/13/2018 12:00 PM CDT) Nura Caban MD GI PROCEDURE ORD from Last 3 Months or Most Recently Relevant to Health Maintenance Advance Directives * Full Code (Latest Code Status on File) Date Activated Date Inactivated Comments 03/11/2020 9:25 AM 03/11/2020 6:13 PM Question Answer Comments Code Status Discussion: Not Discussed * Full Code Date Activated Date Inactivated Comments 11/07/2019 9:47 AM 11/08/2019 12:14 PM * Full Code Date Activated Date Inactivated Comments 02/09/2016 12:18 PM 02/10/2016 2:04 AM * Full Code Date Activated Date Inactivated Comments 08/19/2011 7:11 AM 08/20/2011 2:05 AM * Full Code Date Activated Date Inactivated Comments 08/05/2009 11:01 AM 08/05/2009 5:43 PM Care Teams Security Analyst Relationship Specialty Start Date End Date Cezar Esparza MD [address] [place] [address] PCP - General Family Practice 01/10/19 Jon Irene MD [address] [place] [address] Rheumatology 03/01/11 Soraida Marion MD [address] [facility] [address] [place] [address] Pulmonology Pulmonary Medicine 04/09/14 Alexsander Quick [address] [facility] [address] [place] [address] Rheumatology Rheumatology 06/06/14
--- OUTSIDE RECORDS SUMMARY | 2023-12-31 19:48 | XMS_ITS | Patient Health Record ---
Author Organization [facility] Address [address] [place] [address] Care Team Providers Care Shrimp Peeling Machine Operator Name Role Phone No Primary, Care Primary Care Provider UnavailJon Taylor [phone] Genra NATARAJAN Carole Unavailable Unavailable Allergies No Known Allergies Reason For Referral No Information Medications Medication SIG (Take, Route, Frequency, Duration) Notes [...] morning meal Orally Once a day Active Social History Alcohol Screen Question Answer Notes Did you have a drink containing alcohol in the p ast year? No Points 0 Interpretation Negative Problems Problem Type SNOMED Code ICD Code Onset Dates Problem Status W/U Status Risk Notes Problem Tension-type headache (438923655) Tension-type headache, unspecified, not intractable (G44.209) Active confirmed Problem Backache (868236150) Dorsalgia, unspecified (M54.9) Active confirmed Problem Segmental and somatic dysfunction (992863555) Segmental and somatic dysfunction of cervical region (M99.01) Active confirmed Problem Neck pain (41687171) Neck pain (M54.2) Active confirmed Encounters Encounter Location Date Provider Diagnosis [facility] [address] [place] [address] 11/23/2023 Jon Weiner Plan Of Treatment No Information Insurance Providers Payer Name Payer Address Payer Phone Subscriber Number Group Number Insured Name Patient Relationship to Insured Coverage Start Date Coverage End Date [facility] [address] [address] [place] [address] [id number] Susana Hoff Spouse - patient is the spouse of the insured 1 Medical (General) History Medical History History ICD Code General Past Medical History : Asthma,Stomach Ulcers,Arthritis,Headaches,Cancer,Acid Reflux,Sleep Apnea Surgical History Surgery Date(Month/Year) Gallbladder 10/28 Left ear removal melanoma 03/30
--- OUTSIDE RECORDS SUMMARY | 2023-12-31 19:48 | XMS_ITS ---
Author Organization [facility] Address [address] [place] [address] [address] [place] [address] Care Team Providers Care Stave Cutting Supervisor Name Role Phone No Primary, Care Primary Care Provider Unavailab Jon Hernandez [phone] Sir Stern DOi Unavailable Unavailable Encounters Encounter Location Date Provider Diagnosis [facility] [address] [place] [address] [address] [place] [address] 11/23/2023 Jon Weiner Plan Of Treatment No Information Progress Notes * Pranay HOFF WDOB:[birth year] (53 yo M)Acc No.[id number]:11/23/2023 Patient:?TONYAMAURICEPranay :1970???Age:53 Y???Sex:Male Phone: Address:[address] [place], [address] * true * Date:? Generated for Khadijah simpson/Servando/eTransmitting on:?12/31/2023 07:47 PM CDT
[2023-12-31 19:51] LABS: Albumin* 4.3 g/dL (3.3-5.0); Chloride* 103 mmol/L (96-114); Sodium* 136 mmol/L (135-149)
[2023-12-31 19:52] LABS: Potassium* 3.7 mmol/L (3.6-5.1)
[2023-12-31 19:53] LABS: RBC Urine 0-2 (0-2); WBC Urine 0-2 (0-5)
[2023-12-31 19:53] LABS: Amylase* 53 U/L (18-89); Creatinine* 0.9 mg/dL (0.5-1.5); Est. Creatinine Clearance* 91.83; Estimated Glomerular Filt Rate 102 ml/min
[2023-12-31 19:54] LABS: Alanine Aminotransferase* 20 U/L (4-50); Alkaline Phosphatase* 31 U/L (40-150); Anion Gap 8 mEq/L (7-15); Aspartate Amino Transferase* 25 U/L (12-35); Bilirubin Direct* 0.3 mg/dL (0.0-0.5); Bilirubin Total* 0.5 mg/dL (0.1-1.5); Blood Urea Nitrogen* 10 mg/dL (7-30); Carbon Dioxide* 25 mmol/L (20-32); Glucose* 98 mg/dL (60-115); Total Protein* 7.2 g/dL (6.0-8.3)
[2023-12-31 19:55] LABS: Lipase* 104 U/L (23-300)
[2023-12-31 19:57] LABS: C Reactive Protein* 2.4 mg/dL (0.5-1.0)
== END 2023-12-31 22:50 | disposition home or self-care (01) ==
PROVIDERS: Emergency Provider Family Medicine; PCP Family Medicine
DX: K85.90 Acute pancreatitis without necrosis or infection, unspecified (principal)
CPT/HCPCS: 36415; 74177; 80053; 81001; 82150; 82248; 83605; 83690; 85025; 86140; 96374; 96375; 99284; J1885; J2405; Q9967

== ENCOUNTER 2024-06-14 17:38 | Emergency (ER) | payer BC, SELFPAY ==
--- OUTSIDE RECORDS SUMMARY | 2024-06-14 17:41 | XMS_ITS | Patient Health Record ---
Author Organization [facility] Address [address] [place] [address] Care Team Providers Care Back Strip Machine Operator Name Role Phone No Primary, Care Primary Care Provider UnavailJon Taylor [phone] Genra NATARAJAN Carole Unavailable Unavailable Allergies No [...] W/U Status Risk Notes Problem Tension-type headache (513577938) Tension-type headache, unspecified, not intractable (G44.209) Active confirmed Problem Backache (010495033) Dorsalgia, unspecified (M54.9) Active confirmed Problem Segmental and somatic dysfunction (499905683) Segmental and somatic dysfunction of cervical region (M99.01) Active confirmed Problem Neck pain (74272582) Neck pain (M54.2) Active confirmed Encounters Encounter Location Date Provider Diagnosis [facility] [address] [place] [address] 11/23/2023 Jon Weiner Plan Of Treatment No Information Insurance Providers Payer Name Payer Address Payer Phone Subscriber Number Group Number Insured Name Patient Relationship to Insured Coverage Start Date Coverage End Date [facility] [address] [address] [place] [address] [id number] Susana Hoff Spouse - patient is the spouse of the insured 1 Medical (General) History Medical History History ICD Code General Past Medical History : Asthma,Stomach Ulcers,Arthritis,Headaches,Cancer,Acid Reflux,Sleep Apnea Surgical History Surgery Date(Month/Year) Left ear removal melanoma 03/30 Gallbladder 10/28
--- OUTSIDE RECORDS SUMMARY | 2024-06-14 17:41 | XMS_ITS | CCD ---
Author Name Interface, [employer] Address [address] [place] [address] Organization [facility] Address [address] [place] [address] Care Team Providers Care Grease Press Helper Name Role Phone Aarti Guajardo Unavailable Unavailab le Reason for Visit Encounters Medications Social History
--- OUTSIDE RECORDS SUMMARY | 2024-06-14 17:41 | XMS_ITS | Clinical Summary ---
Author Organization [place] Address [address] [place] [address] Care Team Providers Care Corrugated Box Machine Operator Name Role Phone Vilma Cezar Farley Primary Care Provider [phone] Aspen Weiner WOUND CARE PHYSICIAN STRANDING MACHINE OPERATOR HELPER Unavaila ble Allergies Active Allergy Reactions Criticality [...] Comments) High 07/21/2006 PN: Migraines headaches Medications Cetirizine HCl (ALLERGY, CETIRIZINE, PO) every day 2 Active omeprazole (PRILOSEC) [address] capsule every day 2 Active SULFASALAZINE PO every day 2 Active ZAFIRLUKAST PO twice a day 2 Active albuterol (PROAIR HFA/PROVENTIL HFA/VENTOLIN HFA) 108 (90 Base) MCG/ACT inhaler once 1 Active fluticasone-salm eterol (ADVAIR) 250-50 MCG/ACT inhaler Inhale 1 puff into the lungs every 12 hours 2 Active ipratropium - albuterol 0.5 mg/2.5 mg/3 mL (DUONEB) 0.5-2.5 (3) MG/3ML neb solution INHALE 1 VIAL VIA NEBULIZATION 4 TIMES DAILY NEEDED 2 Active metoprolol succinate ER (TOPROL XL) 25 MG 24 hr tablet Take 25 mg by mouth 2 Active ketotifen (ZADITOR) 0.025 % ophthalmic solution Apply 1 drop to eye Active famotidine (PEPCID) 20 MG tablet Take 20 mg by mouth 1 Active benzonatate (TESSALON) 200 MG capsuleIndicatio ns:Moderate persistent asthma with acute exacerbation Take 1 capsule (200 mg) by mouth 3 times daily as needed for cough 30 capsule 3 Active Active Problems Problem Noted Date Diagnosed Date Knee pain 02/27/2008 Social History Tobacco Use Types Packs/Day Years Used Date Smoking Tobacco: Never Smokeless Tobacco: Never Tobacco Cessation:Counseling Given: Not Answered Adolescent Education Answer Date Record ed Getting School Help Needed Not on file 01/02 Sex and Gender Information Value Date Recorded Sex Assigned at Not on file Legal Sex Male 3:19 AM EARLY INTERVENTION SCHOOL PSYCHOLOGIST Gender Identity Not on file Sexual Orientation Not on file Last Filed Vital Signs Vital Sign Reading Time Taken Comments Blood Pressure 126/71 09/12/2022 12:04 PM CDT Pulse 110 09/12/2022 12:04 PM CDT Temperature 37 C (98.6 F) 09/12/2022 12:04 PM CDT Respiratory Rate 14 [...] LIPID 2010 YEARLY PREVENTIVE VISIT 01/01/2023 01/01/2022 COVID-19 Vaccine ( season) 2023 01/18/2021, 07/19/2020, 06/28/2020 INFLUENZA VACCINE (#1) 2023 , 12/31/2020, 12/31/2020, Additional history exists PHQ-2 (once per calendar year) 2024 DTAP/TDAP/TD IMMUNIZATION (4 - Td or Tdap) 09/13/2031 09/12/2021, 01/03/2012, 05/28/2005, Additional history exists RSV VACCINE (1 - 1-dose 75+ series) 2045 Pneumococcal Vaccine: 50+ Years Completed 01/01/2022, 06/06/2014 ZOSTER IMMUNIZATION Completed 01/01/2022, HPV IMMUNIZATION Aged Out No longer e ligible based on patient's age to complete this topic MENINGITIS IMMUNIZATION Aged Out No l onger eligible based on patient's age to complete this topic RSV MONOCLONAL ANTIBODY Aged Out No l onger eligible based on patient's age to complete this topic Insurance [facility] Care Teams Corrugated Box Machine Operator Relationship Specialty Start Date End Date Cezar Esparza [address] [place] [address] PCP - General Family Medicine 02/11/21 Aspen Weiner APRN STRANDING MACHINE OPERATOR HELPER [address] [place] [address] [id number] [place] [address] Nurse Practitioner Neurology 02/11/21
--- OUTSIDE RECORDS SUMMARY | 2024-06-14 17:42 | XMS_ITS | Encounter Summary ---
Author Organization [facility] Address [address] [place] [address] Care Team Providers Care Action Finisher Name Role Phone Unavailable Primary Care Provider Unavailabl e Encounter Details Date Type Department Care Team (Late st Contact Info) Description 10/15/2008 Historical Ophthalmology [facility] Gary Wellington M.D. 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 He will call with his orthophotography technician's name and address, I will write him with the suggestion. Continue current Rx. Recheck 1 month CDM Reports - [facility] Id: [id number] Status: Fnl documented in this encounter Plan of Treatment Not on file documented as of this encounter Visit Diagnoses Not on filedocumented in this encounter
--- OUTSIDE RECORDS SUMMARY | 2024-06-14 17:42 | XMS_ITS | Encounter Summary ---
Author Organization [facility] Address [address] [place] [address] Care Team Providers Care Health Information Tech Name Role Phone Unavailable Primary Care Provider Unavailabl e Encounter Details Date Type Department Care Team (Late st Contact Info) Description 11/15/2008 Historical Ophthalmology RST OPH Gary Wellington M.D. 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 He sees his body trimmer upholsterer next week for consideration of methorexate. In the meantime we will continue current Rx, recheck 6 weeks. DIAGNOSIS #1 HLA-B27 positive uveitis left eye CDM Reports - [facility] Id: [id number] Status: Fnl documented in this encounter Plan of Treatment Not on file documented as of this encounter Visit Diagnoses Not on filedocumented in this encounter
--- OUTSIDE RECORDS SUMMARY | 2024-06-14 17:42 | XMS_ITS | Encounter Summary ---
Author Organization [facility] Address [address] [place] [address] Care Team Providers Care Coat Joiner Name Role Phone Unavailable Primary Care Provider Unavailabl e Encounter Details Date Type Department Care Team (Late st Contact Info) Description 07/09/2008 Historical Ophthalmology RST O[facility] Gary Wellington M.D. 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
--- OUTSIDE RECORDS SUMMARY | 2024-06-14 17:42 | XMS_ITS ---
Author Organization [facility] Address [address] [place] [address] [address] [place] [address] Care Team Providers Care Refining Supervisor Name Role Phone No Primary, Care Primary Care Provider Unavailab Jon Hernandez [phone] Sir Stern DOi Unavailable Unavailable Encounters Encounter Location Date Provider Diagnosis [facility] [address] [place] [address] [address] [place] [address] 11/23/2023 Jon Weiner Plan Of Treatment No Information Progress Notes * Pranay HOFF WDOB:[birth year] (53 yo M)Acc No.[id number]:11/23/2023 Patient: Antonio SOLERMAURICE Pranay Adrian :1970 A ge:53 Y S ex:Male Phone: Address:[address] [place], [address] * true * Date: Generated for Khadijah simpson/Servando/eTdalesmitting on: 0 06/14/2024 05:41 PM FACILITIES MAINTENANCE SUPERVISOR
--- OUTSIDE RECORDS SUMMARY | 2024-06-14 17:42 | XMS_ITS | Encounter Summary ---
Author Organization [facility] Address [address] [place] [address] Care Team Providers Care Transfer And Pumphouse Operator Name Role Phone Unavailable Primary Care Provider Unavailabl e Encounter Details Date Type Department Care Team (Late st Contact Info) Description 12/30/2008 Historical Ophthalmology RST OPH Gary Wellington M.D. 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
--- OUTSIDE RECORDS SUMMARY | 2024-06-14 17:42 | XMS_ITS | Encounter Summary ---
Author Organization [facility] Address [address] [place] [address] Care Team Providers Care Fish Conservationist Name Role Phone Unavailable Primary Care Provider Unavailabl e Encounter Details Date Type Department Care Team (Late st Contact Info) Description 07/11/2009 Historical Ophthalmology RST OPH Gary Wellington M.D. 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 - 07/11/2009 7:38 AM CDT Eye [...] decrease the methotrexate. I will write his geodetic computator to give him an update on the eye status. He has been getting bloodschecked with him (Dr. Irene at [place]). DIAGNOSIS #1 HLA-B27 positive uveitis left eye CDM Reports - [facility] Id: [id number] Status: Fnl documented in this encounter Plan of Treatment Not on file documented as of this encounter Visit Diagnoses Not on filedocumented in this encounter
--- OUTSIDE RECORDS SUMMARY | 2024-06-14 17:42 | XMS_ITS | Clinical Summary ---
Author Organization [facility] Address [address] [place] [address] Care Team Providers Care Spectroscopist Name Role Phone Jon Irene MD Unavailable [phone] Soraida Marion MD Unavailable [phone] Alexsander Quick Unavailable [phone] Cezar Esparza MD Primary Care Provider Allergies Active Allergy Reactions Criticality Noted Date Comments Zolpidem Intolerance-Can't Take 07/21/2006 headaches Banana Angioedema 10/26/2016 scratchy throat, swelling in mouth Cefuroxime Diarrhea 03/30/2008 Has since tolerated cefazolin & cefzil Cephalexin Diarrhea 04/17/2024 Clavulanic Acid Stomach Upset,Nausea Only,*Unknown Low 07/08/2019 Fluconazole Edema,Itching,Rash High 03/01/2023 Fluorometholone Edema,Other - Describe In Comment Field Medium 05/23/2008 Comment: edema, Comment: edema Latex Other - Describe In Comment Field 03/06/2024 States could be a problem since he is allergic to Banana. Pollen Extracts Wheezing 10/26/2016 watery eyes, triggers asthma Tetracyclines Diarrhea,Nausea And Vomiting 12/11/2013 Unlisted Allergen (Include Detail In Comments) Edema High 11/13/2018 Watermelon Angioedema 10/26/2016 scratchy throat windpipe swells Medications budesonide (RHINOCORT AQUA) (32 mcg each actuation) nasal sprayIndication s:Allergy, unspecified, initial encounter Inhale 1 Eucha into both nostrils 2 times daily. For allergies. 3 Each 2 04/14/19 16 Active sulfaSALAzine (AZULFIDINE) 500 mg tabletIndicatio ns:Myalgia Take 1 tablet by mouth 2 times daily. 180 tablet 4 10/12/19 19 Active cetirizine (ZYRTEC) 10 mg tabletIndicatio ns:Allergy, unspecified, initial encounter TAKE 1 TABLET BY MOUTH EVERY DAY 90 tablet 1 11/23/19 19 Active albuterol-iprat ropium (DUONEB) (2.5-0.5 mg) in 3 mL NEBULIZATION solutionIndicat ions:Moderate persistent asthma without complication INHALE 1 VIAL VIA NEBULIZATION 4 TIMES DAILY NEEDED 90 mL 1 04/06/20 22 Active triamcinolone (ARISTOCORT; KENALOG) 0.1 % cream 03/12/20 22 Active pantoprazole (PROTONIX) 40 mg delayed-release tabletIndicatio ns:Chronic GERD TAKE 1 TABLET(40 MG) BY MOUTH EVERY DAY 90 Tablet 04/12/19 24 Active fluticasone propion-salmete roL (Advair Diskus) 500-50 mcg/Dose diskus inhalerIndicati ons:Asthma, unspecified asthma severity, unspecified whether complicated, unspecified whether persistent Inhale 1 Puff by mouth every 12 hours. 60 Each 11 08/22/19 24 Active zafirlukast 10 mg tabletIndicatio ns:Allergy, unspecified, initial encounter Take 1 Tablet (10 mg) by mouth two times daily after meals. 180 Tablet 3 09/06/19 24 Active nystatin (MYCOSTATIN) 100,000 unit/mL suspensionIndic ations:Thrush Swish and swallow 5 mL (500,000 units) by mouth four times daily. 473 mL 11/15/19 24 Active benzonatate (TESSALON) 100 mg capsuleIndicati ons:Cough, unspecified type,Influenza- like illness Take 1 Capsule (100 mg) by mouth 3 times daily if needed for Cough. 21 Capsule 03/12/20 24 Active triamcinolone (ARISTOCORT; KENALOG) 0.1 % creamIndication s:Chronic eczema Apply topically to affected area(s) three times daily. As needed. 453.6 g 1 04/17/19 25 Active azithromycin (Zithromax Z-Orlando) 250 mg tabletIndicatio ns:Bronchitis with bronchospasm Take 500 mg (2 tabs) by mouth on day 1, then 250 mg (1 tab) daily for days 2-5. 6 Tablet 05/14/19 25 Active albuterol HFA (PRO-AIR; VENTOLIN; PROVENTIL) 90 mcg/actuation inhalerIndicati ons:Mild persistent asthma without complication INHALE 1 TO 2 PUFFS BY MOUTH EVERY 4 HOURS NEEDED FOR SHORTNESS OF BREATH 8.5 g 1 05/31/19 25 Active albuterol HFA (PRO-AIR; VENTOLIN; PROVENTIL) 90 mcg/actuation inhalerIndicati ons:Mild persistent asthma without complication Inhale 1-2 Puffs by mouth every 4 hours if needed for Shortness of Breath 1st choice. 8.5 g 1 03/12/20 24 2024 Discontinued Active Problems Problem Noted Date Diagnosed Date [...] represent cysts or hemangiomas and are unchanged. No new liver lesions. Recommend followup MRI in 1 year to complete [...] November 2013: ER visit for asthma in [place]. Jan 2014: [place] [facility] Dr. Marion, [...] Encounters Date Type Department Care Team Description 05/30/2024 Refill [facility] [address] [place] [address] Tanvi Richardson PA Refill Request (Albuterol Hfa) 05/14/2024 9:00 AM CAR DISPATCHER Office Visit [facility] [address] [place] [address] Tanvi Richardson PA Cough 05/14/2024 Travel 04/17/2024 10:05 AM CAR DISPATCHER Office Visit [facility] [address] [place] [address] Cezar Esparza MD Derm Problem (Rash on bilateral arms, back); Ear Problem (Bilateral ear, redness, warm to touch, painful) 04/17/2024 Travel 04/16/2024 Travel 04/13/2024 9:00 AM CAR DISPATCHER Office Visit [facility] [address] [place] [address] Tanvi Richardson PA Rash (Red bumpy and itching x month /Left arm and back ) 04/13/2024 Travel 03/20/2024 8:40 AM CAR DISPATCHER Office Visit [facility] [address] [place] [address] Tanvi Richardson PA Throat Problem 03/20/2024 Travel from Last 3 Months Immunizations Name Administration Dates Next Due AMB Influenza, IIV3 (Age >=3 years)(Flu Clinic Only) 01/13/2009 AMB Influenza, IIV4 PF (=>6 mos Flulaval,Fluzone Fluarix)(Flu Clinic Only) 01/08/2020 COVID-19 vaccine ([employer] 30mcg/0.3mL) PF, MDV 07/19/2020,06/28/2020 Hepatitis A (Adult) 03/31/2012,06/27/2002 Hepatitis B (Peds) 01/20/2005,08/19/2004, 005 INFLUENZA, IIV3 PF (AGE >= 6 MO) 01/17/2024 Influenza Virus, Unspecified 12/31/2020, 01/24/2017,01/20/2015,2013,01/30/2013,12/31/2011,02/13/2011,1 ,03/05/2003,04/16/2002, 999,01/22/1999 [...] Never Smokeless Tobacco: Never Tobacco Cessation:Counseling Given: No Alcohol Use Standard Drinks/Week Comments Not Currently 0 (1 standard drink = 0.6 oz pur e alcohol) rarely PHQ-2 Answer Date Recorded PHQ-2 TOTAL SCORE 0 08/22/2023 Social Connections Answer Date Recorded Do you often feel lonely or isolated from those around you? 0 05/14/2024 Alcohol Use Answer Date Recorded How often do you have a drink containing alcohol ? 1 08/20/2021 How many drinks containing a lcohol do you have on a typical day when you are drinking? 0 08/20/2021 How often do you have five or more drinks on one occasion? 0 08/20/2021 Financial Resource Strain Answer Date R ecorded Difficulty of Paying Living Expenses 3 05/14/2024 Difficulty of Paying Living Expenses Not on file 05/14/2024 Food Insecurity Answer Date Recorded Do you worry your food will run out before you are able to buy more? 1 05/14/2024 Transportation Needs Answer Date Record ed Does lack of transportation keep you from medica l appointments? 1 05/14/2024 Does lack of transportation keep you from work, meetings or getting things that you need? 1 05/14/2024 Housing Stability Answer Date Recorded What is your housing situation today? 1 05/14/2024 Utilities Answer Date Recorded Do you have trouble paying f or utilities (for example, heat, electricity, water, phone)? 1 05/14/2024 Sex and Gender Information Value Date Recorded Sex Assigned at Not on file Legal Sex Male 5:16 AM CAR DISPATCHER Gender Identity Not on file Sexual Orientation Not on file Occupation Industry Job Start Date Job End Date [employer] Not on file Not on file Not on fi le Not on file Not on file Not on file Not on file Obstetrics History Last Filed Vital Signs Vital Sign Reading Time Taken Comments Blood Pressure 144/89 05/14/2024 8:53 AM CAR DISPATCHER Pulse 112 05/14/2024 8:53 AM CAR DISPATCHER Temperature 36.8 C (98.2 F) 05/14/2024 8:53 AM CAR DISPATCHER Respiratory Rate 18 03/09/2024 8:38 AM CAR DISPATCHER Oxygen Saturation 94% 05/14/2024 8:53 AM CAR DISPATCHER Inhaled Oxygen Concentration - - Weight 115.2 kg (254 lb) 04/17/2024 10:14 AM CAR DISPATCHER Height 170.2 cm (5' 7) 02/28/2024 9:53 AM CAR DISPATCHER Body Mass Index 39.78 02/28/2024 9:53 AM CAR DISPATCHER Plan of Treatment Health Maintenance Due Date Last Done Comments HIV for age 15-65 1985 COVID-19 vaccine series ( season) 2023 01/18/2021, 07/19/2020, 06/28/2020 Depression screening for age 12+ 08/21/2024 08/22/2023, 08/10/2023, 01/01/2022, Additional history exists BMI (ht and wt on same day) for age 18+ 02/27/2025 02/28/2024, 08/31/2023, 08/22/2023, Additional history exists Lipids for age 45-75 08/21/2028 08/22/2023, 01/01/2022, 10/23/2020, Additional history exists Colonoscopy through age 75 11/13/202811/13, 11/13/2018, 11/13/2018, Additional history exists Tetanus booster 09/13/2031 09/12/2021, 12/11, 01/03/2012, Additional history exists Tdap Completed 09/12/2021, 05/28/2005 Hepatitis C screening for ag e 18-79 Completed 01/01/2022 Pneumococcal series for age 50+ Completed , 06/06/2014 Zoster (shingles) series for age 50+ Completed 01/01/2022, 10/23/2020 Influenza for age 50-64 Completed 01/17/20, 12/27/2022, 01/01/2022, Additional history exists Procedures Procedure Name Priority Date/Time Associated Diagnosis Comments THROAT RAPID STREP ONLY CLINIC Routine 03/20/2024 8:43 AM CAR DISPATCHER Sore throat LIPID PANEL W REFLEX MEASURED LDL Routine 08/22/2023 9:25 AM CDT Hyperlipidemia, unspecified hyperlipidemia type ANTI HCV Routine 01/01/2022 8:55 AM CDT Need for hepatitis C screening test COLONOSCOPY SCREENING Routine 11/13/2018 12:00 PM CDT Epigastric pain Generalized abdominal pain from Last 3 Months or Most Recently Relevant to Health Maintenance Results * THROAT RAPID STREP ONLY CLINIC (03/20/2024 8:43 AM CAR DISPATCHER) POC, GROUP A STREP NOT DETECTED NOT DETECTED [facility] Comment: The [place] [employer] recommends that a throat culture be performed if a rapid group A streptococcus assay yields a negative result. [facility] recommends Streptococcus, Group A culture. Throat SPECIMEN FROM THROAT / Unknown 03/20/2024 8:43 AM CAR DISPATCHER 03/20/2024 8:44 AM CAR DISPATCHER Tanvi BOWLES MICROBIOLOGY Final Result [facility] [address] [place] [address], [facility] [address] [place] [address] * (ABNORMAL) LIPID PANEL W REFLEX MEASURED LDL (08/22/2023 9:25 AM CDT) CHOLESTEROL,TOTAL 246(H) 100 - 199 mg/dL 08/22/2023 6:31 PM CDT [facility] Comment: Cholesterol, Total Reference Ranges Desirable <200 mg/dL Borderline 200-239 mg/dL High >=240 mg/dL TRIGLYCERIDES 70 <150 mg/dL 08/22/2023 6:31 PM CDT [facility] HDL CHOLESTEROL 62 >40 mg/dL 6:31 PM CDT [facility] NON-HDL CHOLESTEROL 184(H) <145 mg/dl 08/22/2023 6:31 PM CDT [facility] CHOL/HDL RATIO 3.97 <4.50 08/22/2023 6:31 PM CDT [facility] LDL CHOLESTEROL 170(H) <=130 mg/dL 08/22/2023 6:31 PM CDT [facility] VLDL CHOLESTEROL 14 <=30 mg/dL 08/22/2023 6:31 PM CDT [facility] PROVIDER ORDERED STATUS RANDOM 08/22/2023 6:31 PM CDT [facility] Blood BLOOD SPECIMEN / Unknown Venipuncture / Unknown 08/22/2023 9:25 AM CDT 08/22/2023 9:25 AM CDT us Maranda Borja MD CHEMISTRY Final Resul t [facility] [address] [place] [address], * ANTI HCV (01/01/2022 8:55 AM CDT) HEPATITIS C ANTIBODY Non-React jesenia Non-React jesenia 01/02/2022 5:36 AM CDT [facility] Comment:Antibodies to HCV no t detected; does not exclude the possibility of exposure to HCV. Blood BLOOD SPECIMEN / Unknown Venipuncture / Unknown 01/01/2022 8:55 AM CDT 01/01/2022 8:56 AM CDT us Antonieta Stern DO SEND OUTS Final Result [facility] [address] [place] [address], [place] * COLONOSCOPY SCREENING (11/13/2018 12:00 PM CDT) us Nura Caban MD GI PROCEDURE ORD Final Res ult from Last 3 Months or Most Recently Relevant to Health Maintenance Insurance [employer] Member Subscriber Plan / Payer (Ef fective 2021-Present) Name:Pranay Hoff Relation to Subscriber:Self Name:Pranay Hoff Payer ID:Not on file Group ID:Not on file Type:Not on file Address: [address] [place] [id number] [employer] [address] Advance Directives * Full Code (Latest Code Status on File) Date Activated Date Inactivated Comments 03/09/2024 7:13 AM 03/09/2024 11:08 AM Question Answer Comments Code Status Discussion: Unable to Assess Preferences, Provider to review later * Full Code Date Activated Date Inactivated Comments 03/11/2020 9:25 AM 03/11/2020 6:13 PM Question Answer Comments Code Status Discussion: Not Discussed * Full Code Date Activated Date Inactivated Comments 11/07/2019 9:47 AM 11/08/2019 12:14 PM * Full Code Date Activated Date Inactivated Comments 02/09/2016 12:18 PM 02/10/2016 2:04 AM * Full Code Date Activated Date Inactivated Comments 08/19/2011 7:11 AM 08/20/2011 2:05 AM Care Teams Spectroscopist Relationship Specialty Start Date End Date Cezar Esparza MD [address] [place] [id number] PCP - General Family Practice 01/10/19 Jon Irene MD [address] [place] [address] Rheumatology 03/01/11 Soraida Marion MD [address] [place], [place] [id number] Pulmonology Pulmonary Medicine 04/09/14 Alexsander Quick [address] [place] [address] Rheumatology Rheumatology 06/06/14
--- OUTSIDE RECORDS SUMMARY | 2024-06-14 17:42 | XMS_ITS | Encounter Summary ---
Author Organization [facility] Address [address] [place] [address] Care Team Providers Care Monorail Crane Operator Name Role Phone Unavailable Primary Care Provider Unavailabl e Encounter Details Date Type Department Care Team (Late st Contact Info) Description 07/23/2008 Historical Ophthalmology RST OPH Gary Wellington M.D. 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
--- OUTSIDE RECORDS SUMMARY | 2024-06-14 17:42 | XMS_ITS | Encounter Summary ---
Author Organization [facility] Address [address] [place] [address] Care Team Providers Care Child Support Agent Name Role Phone Unavailable Primary Care Provider Unavailabl e Encounter Details Date Type Department Care Team (Late st Contact Info) Description 02/04/2009 Historical Ophthalmology RST OPH Gary Wellington M.D. 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 CDM Reports - EYEGEN Id: [id number] Status: Fnl documented in this encounter Plan of Treatment Not on file documented as of this encounter Visit Diagnoses Not on filedocumented in this encounter
--- OUTSIDE RECORDS SUMMARY | 2024-06-14 17:42 | XMS_ITS | Encounter Summary ---
Author Organization [facility] Address [address] [place] [address] Care Team Providers Care System Administration Advisor Name Role Phone Unavailable Primary Care Provider Unavailabl e Encounter Details Date Type Department Care Team (Late st Contact Info) Description 08/16/2008 Historical Ophthalmology RST OPH Gary Wellington M.D. 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
--- OUTSIDE RECORDS SUMMARY | 2024-06-14 17:42 | XMS_ITS | Encounter Summary ---
Author Organization [facility] Address [address] [place] [address] Care Team Providers Care Signal Timer Name Role Phone Unavailable Primary Care Provider Unavailabl e Encounter Details Date Type Department Care Team (Late st Contact Info) Description 09/06/2008 Historical Ophthalmology RST OPH Gary Wellington M.D. 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 - 09/06/2008 10:01 AM CDT [...] left eye CDM Reports - EYEGEN Id: [id number] Status: Fnl documented in this encounter Plan of Treatment Not on file documented as of this encounter Visit Diagnoses Not on filedocumented in this encounter
--- OUTSIDE RECORDS SUMMARY | 2024-06-14 17:42 | XMS_ITS | Clinical Summary ---
Author Organization [facility] Address [address] [place] [address] Care Team Providers Care Dry Cell Battery Assembler Name Role Phone Gary Foreman MD Primary Care Provider [phone] Source Comments You are receiving this document as you are listed as the primary care provider,follow-up provider, or the patient has been referred to you for consultation.This is in compliance with the Medicare and[facility] EHR Incentive Program,which states Providers who transition their patient to another setting of careor provider of care or refers their patient to another provider of care shouldprovide summary care record for each transition of care or referral. [facility] Allergies Active Allergy Reactions Criticality Noted Date Comments Cefuroxime Diarrhea Medium 07/31/2014 Citrullus Vulgaris Other, see comments,Angioedema High 10/26/2016 Scratchy throat, windpipe swells Tetracyclines & Related Diarrhea 11/05/2013 Zolpidem Other, see comments 11/05/2013 PN: Migraines Medications ALBUTEROL SULFATE HFA IN Inhale 2 puffs as needed. 4 Active cetirizine (ALL DAY ALLERGY) 10 MG tablet Take 1 Tablet (10 mg) by mouth daily. 4 Active budesonide (AKA RHINOCORT) 32 MCG/ACT nasal spray 1 [place] by Nasal route daily. 4 Active zafirlukast (AKA ACCOLATE) 10 MG tablet Take 1 Tablet (10 mg) by mouth daily. 4 Active fluticasone-sa lmeterol (ADVAIR DISKUS) 250-50 MCG/DOSE diskus inhalerIndicat ions:KENAN GUZMAN TueJul 31, 2014 3:31 PM Received from: External Pharmacy Indications: PN: KENAN SANCHEZ TueJul 31, 2014 3:31 PM Received from: External Pharmacy 5 5 Active diclofenac (VOLTAREN) 1 % gel Apply 2 g to skin 4 times daily as needed for Other (hand, knee, other joint pain). 100 g 3 9 Active pantoprazole (PROTONIX IV) 40 MG injection Administer 40 mg intravenously every 24 hours. 3 Active sulfaSALAzine (AZULFIDINE) 500 MG tabletIndicati ons:Iritis Take 1 Tablet (500 mg) by mouth two times a day. 180 Tablet 3 4 Active Active Problems Problem Noted Date Diagnosed Date Elevated C-reactive protein (CRP) 11/20/2018 Dry eye syndrome of both eyes 08/07/2018 Myalgia 08/07/2018 HLA B27 (HLA B27 positive) 08/02/2016 assisted use of drug 08/04/2015 Fatty liver 08/04/2015 Iron deficiency anemia 08/01/2014 Absolute anemia 07/31/2014 Iritis 11/05/2013 Multiple joint pain 11/05/2013 Encounter for long-term (current) use of medicat ions 11/05/2013 Overview (12/01/2016): Encounter for long-term (current) use of other medications Asthma 09/15/2002 Overview (12/01/2016): Asthma NOS Allergic rhinitis 09/15/2002 Overview (12/01/2016): Rhinitis Allergic NOS Lumbago 09/15/2002 Overview (12/01/2016): Pain Low Back Immunizations Immunization Administration Dates Next Due Flu Vac (3+ yrs) 01/30/2013, 2,02/13/2011,2008,03/05/2003,04/16/2002,01/22/1999 Flu Vac Preserv Free (3+yrs) 02/13/2011 Fluzone Qiv Multidose Vial 0 .25 (6-35 Mos) 01/24/2017 HepA Adult (19+ yrs) 03/31/2012,06/27/2002 HepB Ped/Adol (0-18 yrs) 01/20/2005,08/19/2004,0 07/08/2004 Influenza IIV4 (Quadrivalent ) 0.5mL (85870) 01/08/2020,01/10/2019,01/16/2018,2015,01/20/2015,12/24/2013,12/11/2013 Influenza, Unspecified Formulation 12/31/2020,,01/22/1999 MMR 08/15/1998 PPSV23 (Pneumovax) 06/06/2014 Pfizer Monovalent 12+ Purple Top 01/18/2021,04,06/28/2020 Td 12/06/1998 Td, Preservative Free 01/03/2012 Tdap [...] at Not on file Legal Sex Male 4:59 AM CDT Gender Identity Not on file Sexual Orientation Not on file Last Filed Vital Signs Vital Sign Reading Time Taken Comments Blood Pressure 144/93 09/15/2022 3:30 PM CDT Pulse 96 09/15/2022 3:30 PM CDT Temperature 36.5 C (97.7 F) 03/02/2021 9:02 AM 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 [address] [address] Alexsander Quick MD [facility] [place], [place] [address] Health Maintenance Due Date Last Done Comments [...] C Screening (Preventive Services) Completed 11/05/2013 Pneumococcal 50+ Yrs Completed 01/01/2022, 06/06/19 15 Pneumococcal Completed 01/01/2022, 06/06/2014 Zoster/Shingles Completed 01/01/2022, 10/23/2020 Hib Aged Out No longer eligi ble based on patient's age to complete this topic IPV (Polio) Aged Out No longer eligi ble based on patient's age to complete this topic MCV4 Aged Out No longer eligi ble based on patient's age to complete this topic Meningococcal B Aged Out No longer el igible based on patient's age to complete this [...] 3 AM CDT 11/05/2013 12:29 PM CDT us Alexsander Quick MD LAB_1 Final Result HP CONVERSION * (ABNORMAL) Chol, HDL, LDL Non-Fasting (10/13/2000 3:42 PM CDT) Hours Fasting 3.5(LL) 8.0 - 24.0 Hours HP CONVERSION Cholesterol/HDL Ratio Screen 4.2 No normal range HP CONVERSION Cholesterol 191 125 - 199 mg/dL HP CONVERSION HDL Cholesterol 45 30 - 70 mg/dL HP CONVERSION LDL Direct 128 <130 mg/dL HP CONVERSION Comment: Direct LDL Reference Ranges 0-129 Desirable 130-159 Borderline Risk >160 High Risk Triglycerides 174 0 - 199 mg/dL HP CONVERSION Comment:Triglyceride obtaine d on nonfasting specimen. 10/13/2000 3:42 PM CDT us Gary Foreman MD LAB_1 Final Resul t HP CONVERSION from Last 3 Months or Most Recently Relevant to Health Maintenance Insurance [facility] Care Teams Dry Cell Battery Assembler Relationship Specialty Start Date End Date Gary Foreman MD [address] [facility] [place] [address] PCP - General 07/12/10
--- OUTSIDE RECORDS SUMMARY | 2024-06-14 17:42 | XMS_ITS | Clinical Summary ---
Author Organization [facility] Address [address] [place] [address] Care Team Providers Care Direct Mail Coordinator Name Role Phone Unavailable Primary Care Provider Unavailabl e Source Comments Patient records contain information from all sites at [facility]. For routine questions regarding patient records, call [phone] during business hours, M-F 8:00 AM - 5:00 PM Central Time. Record requests for emergency care only can be directed to [phone] at any time.[facility] Allergies Active Allergy Reactions Criticality Noted Date [...] throat windpipe swells Zolpidem Headache 06/26/2008 Medications fluticasone propion-salmeteroL 500-50 mcg/dose diskus inhaler Inhale 1 Inhaler 2 (two) times a day. 10/27/19 17 Active albuterol sulfate 90 mcg/actuation aerosol powdr breath activated Inhale 1-2 puffs every 4 (four) hours as needed. Shortness of breath/asthma 10/27/19 17 Active budesonide (for_RINOCORT AQUA) 32 mcg/actuation nasal spray Administer 2 application into each nostril 2 (two) times a day. One spray in each nostril. 10/27/19 17 Active cetirizine (for_ZyrTEC) 10 mg tablet Take 1 tablet by mouth daily. 10/27/19 17 Active olopatadine (PATANOL) 0.1 % ophthalmic solution Administer 1 drop into both eyes 2 (two) times a day. Each eye 10/27/19 17 Active raNITIdine (ZANTAC) 150 mg tablet Take 1 tablet by mouth 2 (two) times a day. For relief of heartburn 10/27/19 17 Active sulfaSALAzine (for_AZULFIDINE) 500 mg tablet Take 1 tablet by mouth 2 (two) times a day. 10/27/19 17 Active zafirlukast (for_ACCOLATE) 10 mg tablet Take 1 tablet by mouth 2 (two) times a day. 10/27/19 17 Active dextromethorphan-g uaiFENesin (MUCINEX DM) 30-600 mg per 12 hr tablet Take 1 tablet by mouth as needed for cough or congestion. 12/28/19 14 Active ibuprofen (ADVIL,MOTRIN) 200 mg tablet Take 600 mg by mouth as needed. 04/28/19 12 Active naproxen sodium (ALEVE/ANAPROX) 220 mg tablet Take 440 mg by mouth as needed. 04/28/19 12 Active pseudoephedrine (SUDAFED) 30 mg tablet Take 30 mg by mouth as needed. 01/19/20 13 Active ketotifen (ZADITOR) 0.025 % (0.035 %) ophthalmic solution Administer 1 drop into both eyes as needed. PRN as needed for irritation Active ammonium lactate (AMLACTIN) 12 % cream Apply 1 Application topically as needed. 07/23/19 21 Active benzonatate (TESSALON) 200 mg capsule Take 1 capsule by mouth 3 (three) times a day as needed. 09/13/19 23 Active famotidine (PEPCID) 20 mg tablet Take 20 mg by mouth as needed for indigestion or heartburn. 07/05/19 21 Active ipratropium-albute roL (DUONEB) 0.5-2.5 mg/3 mL nebulizer solution INHALE 1 VIAL VIA NEBULIZATION 4 TIMES DAILY NEEDED 02/27/20 19 Active lifitegrast (Xiidra) 5 % ophthalmic solution Bid both eyes 03/02/20 21 Active metoprolol succinate (TOPROL-XL) 25 mg 24 hr tablet Take 1 tablet by mouth daily. 05/28/19 22 Active naproxen (NAPROSYN) 500 mg tablet Take 500 mg by mouth every 12 (twelve) hours as needed. 10/12/19 19 Active nystatin (MYCOSTATIN) 100,000 unit/mL suspension Take 500,000 Units by mouth as needed. 02/26/20 23 Active omeprazole (PriLOSEC) [address] capsule every day 11/07/19 22 Active ondansetron ODT (ZOFRAN-ODT) 4 mg disintegrating tablet Dissolve 4 mg in the mouth as needed for nausea or vomiting. 04/04/20 23 Active oxyCODONE (ROXICODONE) 5 mg immediate release tablet Every 4 Hours as needed 10/23/19 19 Active pantoprazole (PROTONIX) 4 mg/mL injection Infuse 40 mg into a venous catheter daily. 09/16/19 23 Active predniSONE (DELTASONE) 20 mg tablet 2 (two) times a day. 02/27/20 19 Active triamcinolone (KENALOG) 0.1 % cream 03/12/20 22 Active pantoprazole (PROTONIX) 40 mg EC tablet Take [...] 10/26/2016 Genetic Susceptibility To Disease 05/14/2008 Immunizations Immunization Administration Dates Next Due Influenza Split 12/29/2015 Td Preservative Free (TENIVAC, DECAVAC) 01/03/20 12 Tdap 05/28/2005 Social History Tobacco Use Types Packs/Day Years Used Date Smoking Tobacco: Never Smokeless Tobacco: Never Tobacco Cessation:Counseling Given: Not Answered [facility] Utilities Answer Date Recorded In the past 12 months has th e electric, gas, oil, or water company threatened to shut off services in your home? Patient declined 06/26/2023 Social Connection and Isolation Panel [NHANES] A nswer Date Recorded In a typical week, how many times do you talk on the phone with family, friends, or neighbors? Twice a week 05/11/2020 Frequency of Social Gatherings with Friends and Family Not on file 05/11/2020 Attends Yarsani Services Not on file 05/11 Do you belong to any clubs o r organizations such as scientology groups, unions, fraternal or athletic groups, or [...] and heating? Not hard at all 05/11/2020 [facility] Occupat ional [facility] - Occupational Stress [...] Date Recorded Dental: Regular Dentist No 06/26/19 Employment Answer Date Recorded Employment status Employed and actively working without restrictions 06/26/2023 Housing Stability Answer Date Recorded What is your living situation today? I have a [facility] place to live 06/26/2023 Education Answer Date Recorded What is the highest level of school you have completed or the highest degree you have received? 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 Gender Identity Male 08/28/2017 5:25 PM CDT [...] 1970 FIT 1970 HIV Screening 1970 Hepatitis B Screening 1970 Hepatitis C Screening 1970 Hepatitis B Vaccines (1 of 3 - 19+ 3-dose series) 1989 Lipid (Cholesterol) Screening 01/01/2023 01/01/2022, 10/23/2020, 01/10/2019, Additional history exists COVID-19 Vaccine (4 - season) 2023 01/18/2021, 07/19/2020, 06/28/2020 Influenza Vaccine (#1) 2024 3, 01/01/2022, 12/31/2020, Additional history exists Depression Screening (Annual PHQ-2) 04/11/2024 Fasting Glucose for Diabetes Screening 06/30/2026 07/01/2023, 01/01/2022, 10/23/2020, Additional history exists Colonoscopy 11/13/2028 11/13/2018 Colorectal Cancer Screening 11/13/2028 DTaP,Tdap,and Td Vaccines (4 - Td or Tdap) 09/13/2031 09/12/2021, 01/03/2012, 05/28/2005, Additional history exists Pneumococcal vaccine (50+ years) Completed 01/01/2022, 06/06/2014 Zoster Vaccines Completed 01/01/2022, 10/23/2020 IPV Vaccines Aged Out No longer eligi ble based on patient's age to complete this topic Procedures Procedure Name Priority Date/Time Associated Diagnosis Comments COMPREHENSIVE METABOLIC PANEL, S/P Routine 07/01/2023 9:22 AM CDT Palpitations Dizziness Tachycardia LIPID PANEL, S Routine 10/29/2016 7:05 AM CDT from Last 3 Months or Most Recently Relevant to Health Maintenance Results * (ABNORMAL) Comprehensive Metabolic Panel (07/01/2023 9:22 AM CDT) [facility] Potassium, S 4.2 3.6 - 5.2 mmol/L [...] 9:22 AM CDT 07/01/2023 9:56 AM CDT us Sonya Weiner APRN, C.N.P. LAB BLOOD ADD-ON Final Result [facility] [address] [place] [address], [facility] [address] [place] [address] * (ABNORMAL) Lipid Panel (10/29/2016 7:05 AM CDT) Cholesterol, Total 218(H) SeeComment MG/DL [facility] Comment: REFERENCE VALUE Desirable: < 200 Borderline high: 200 - 239 High: > or = 240 Triglycerides 76 SeeComment MG/DL [facility] Comment: REFERENCE VALUE Normal: <150 Borderline high: 150-199 High: 200-499 Very high: > or =500 Cholesterol, Non-HDL, Calculated 163(H) SeeComment MG/DL [facility] Comment: REFERENCE VALUE Desirable: <130 Above Desirable: 130-159 Borderline high: 160-189 High: 190-219 Very high: > or =220 Cholesterol, HDL, S 55 >=40 MG/DL [facility] Calculated LDL 148(H) SeeComment MG/DL [facility] Comment: REFERENCE VALUE Desirable: <100 Above Desirable: 100-129 Borderline high: 130-159 High: 160-189 Very high: > or =190 10/29/2016 7:05 AM CDT 10/29/2016 7:05 AM CDT us Gary Lind M.D. LAB BLOOD ADD-ON Final Res ult [facility] [address] [place] [address], [facility] from Last 3 Months or Most Recently Relevant to Health Maintenance Insurance [employer] [facility]
--- OUTSIDE RECORDS SUMMARY | 2024-06-14 17:42 | XMS_ITS | Encounter Summary ---
Author Organization [facility] Address [address] [place] [address] Care Team Providers Care Lace Burn Out Tender Name Role Phone Unavailable Primary Care Provider Unavailabl e Encounter Details Date Type Department Care Team (Late st Contact Info) Description 03/14/2009 Historical Ophthalmology RST OPH Gary Wellington M.D. 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
--- OUTSIDE RECORDS SUMMARY | 2024-06-14 17:42 | XMS_ITS ---
Author Name Interface, [id number] lity Address [address] [place] [address] [address] [place] [address] Organization [facility] Address [address] [facility] [address] [place] [address] Care Team Providers Care Professional Bondsman Name Role Phone Aarti Guajardo Unavailab le Allergies and Adverse Reactions Medication/Group Name Reaction Severity Date zolpidem 03/03/2020 cefuroxime 09/29/2020 fluorometholone 09/29/2020 Ambien 09/29/2020 tetracycline 09/29/2020 Plan Date Type Value 09/29/2020 APPOINTMENT RC - 6 MOS LT EA R JAMES - 6 MOS LT EAR JAMES Reason for Visit RC - 6 MOS LT EAR JAMES - 6 MOS LT EAR JAMES Encounters Date Name 09/29/2020 Melanoma Immunizations Date Name Route Dose Instructions Refusal Reason Stat us Covid-19 vaccine (Pfizer) Completed Covid-19 vaccine ([employer]) Completed Medications Date Name Route Dose Frequency Instructions Start Date End Date Status Zafirlukast Oral Bryon e 1 tab by oral route twice daily active Fluticasone-Salmet lora Inhaler 250 mcg-50 mcg/Dose 1 puff by oral route twice daily active Famotidine Oral Take 1 tab by oral route PRN active Omeprazole Oral Delayed Release Capsule Take 1 cap by mouth once daily active Ibuprofen Oral PRN ac tive Albuterol HFA Inhaler 90 mcg/actuation active Sulfasalazine Oral t pollo 1 tab by mouth once daily active Problems Diagnosis Status Date of Diagnosi s Melanoma Active 02/11/2020 Vital Signs Date Type Value 09/29/2020 Heart Beat 101.00 09/29/2020 Respiratory Rate 16.00 09/29/2020 Oxygen Saturation 96.00 09/29/2020 Intravascular Systolic 138 09/29/2020 Intravascular Diastolic 86 09/29/2020 BSA 2.24 09/29/2020 Weight 248.20 09/29/2020 Height 68.00 09/29/2020 BMI 37.74 09/29/2020 Pain Scale 0.00
[2024-06-14 17:54] VITALS: BP 155/107; PULSE 92; RESP 20; TEMP 37.6; O2SAT 96
--- OUTSIDE RECORDS SUMMARY | 2024-06-14 19:00 | XMS_ITS ---
Author Name Interface, [id number] lity Address [address] [place] [address] Oncology Address [address] [place] [address] Care Team Providers Care Physician Assistant Certified Name Role Phone Aarti Guajardo Unavailab le Allergies and Adverse Reactions Plan Reason for Visit Encounters Immunizations Medications Problems Vital Signs
--- OUTSIDE RECORDS SUMMARY | 2024-06-14 19:00 | XMS_ITS | Encounter Summary ---
Author Organization [facility] Address [address] [place] [address] Care Team Providers Care Senior Catering Sales Manager Name Role Phone Unavailable Primary Care Provider Unavailabl e Encounter Details Date Type Department Care Team (Late st Contact Info) Description 06/26/2008 Historical Ophthalmology RST OPH Gary Wellington M.D. 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 Recheck 3 weeks. [facility]: [id number] Status: Fnl documented in this encounter Plan of Treatment Not on file documented as of this encounter Visit Diagnoses Not on filedocumented in this encounter
--- OUTSIDE RECORDS SUMMARY | 2024-06-14 19:00 | XMS_ITS | Clinical Summary ---
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
--- OUTSIDE RECORDS SUMMARY | 2024-06-14 19:01 | XMS_ITS | Encounter Summary ---
Author Organization [facility] Address [address] [place] [address] Care Team Providers Care Staffing Assistant Name Role Phone Unavailable Primary Care Provider Unavailabl e Encounter Details Date Type Department Care Team (Late st Contact Info) Description 07/11/2009 Historical Ophthalmology [facility] Gary Wellington M.D. 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 I will write his military administrative technician to give him an update on the eye status. He has been getting bloodschecked with him (Dr. Irene at [facility]). DIAGNOSIS #1 HLA-B27 positive uveitis left eye CDM Reports - EYEGEN Id: [id number] Status: Fnl documented in this encounter Plan of Treatment Not on file documented as of this encounter Visit Diagnoses Not on filedocumented in this encounter
--- OUTSIDE RECORDS SUMMARY | 2024-06-14 19:01 | XMS_ITS | Encounter Summary ---
Author Organization [facility] Address [address] [place] [address] Care Team Providers Care Monitor Tech Name Role Phone Unavailable Primary Care Provider Unavailabl e Encounter Details Date Type Department Care Team (Late st Contact Info) Description 11/15/2008 Historical Ophthalmology RST OPH Gary Wellington M.D. 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 He sees his clerical support specialist next week for consideration of methorexate. In the meantime we will continue current Rx, recheck 6 weeks. DIAGNOSIS #1 HLA-B27 positive uveitis left eye CDM Reports - EYEGEN Id: [id number] Status: Fnl documented in this encounter Plan of Treatment Not on file documented as of this encounter Visit Diagnoses Not on filedocumented in this encounter
--- OUTSIDE RECORDS SUMMARY | 2024-06-14 19:01 | XMS_ITS ---
Author Name Interface, [id number] lity Address [address] [place] [address] [address] [place] [address] Organization [facility] Address [address] [facility] [address] [place] [address] Care Team Providers Care Shift Supervisor Melting Name Role Phone Aarti Guajardo Unavailab le [...] us Covid-19 vaccine (Pfizer) Completed Covid-19 vaccine (Ecovision) Completed Medications Date Name Route Dose Frequency [...]
--- OUTSIDE RECORDS SUMMARY | 2024-06-14 19:01 | XMS_ITS | Encounter Summary ---
Author Organization [facility] Address [address] [place] [address] Care Team Providers Care Children'S Court Magistrate Name Role Phone Unavailable Primary Care Provider Unavailabl e Encounter Details Date Type Department Care Team (Late st Contact Info) Description 02/04/2009 Historical Ophthalmology RST OPH Gary Wellington M.D. 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 CDM Reports - EYEGEN Id: [id number] Status: Fnl documented in this encounter Plan of Treatment Not on file documented as of this encounter Visit Diagnoses Not on filedocumented in this encounter
--- OUTSIDE RECORDS SUMMARY | 2024-06-14 19:01 | XMS_ITS | CCD ---
Author Name Interface, [id number] lity Address [address] [place] [address] Organization [facility] Address [address] [place] [address] Care Team Providers Care Cso Name Role Phone Aarti Guajardo Unavailable Unavailab le Reason for Visit Encounters Medications Social History
--- OUTSIDE RECORDS SUMMARY | 2024-06-14 19:01 | XMS_ITS | Clinical Summary ---
Author Organization [facility] Address [address], [place] [address] Care Team Providers Care Refuse Driver Name Role Phone Gary Foreman MD Primary Care Provider [phone] Source Comments You are receiving this document as you are listed as the primary care provider,follow-up provider, or the patient has been referred to you for consultation.This is in compliance with the Medicare andPrem[facility] Cent[facility]aid EHR Incentive Program,which states Providers who transition their patient to another setting of careor provider of care or refers their patient to another provider of care shouldprovide summary care record for each transition of care or referral. [facility] Allergies Active Allergy Reactions Criticality Noted Date [...] (AKA RHINOCORT) 32 MCG/ACT nasal spray 1 [place] by Nasal route daily. 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 Respiratory Rate - - Oxygen Saturation - - Inhaled Oxygen Concentration - - Weight 115.2 kg (254 lb) 09/15/2022 3:30 PM CDT Height - - Body Mass Index - - Plan of Treatment Upcoming Encounters Date Type Department Care Team (Late st Contact Info) Description 09/17/2024 8:15 AM CDT Appointment Rheumatology at [facility] [place] [address] [address] Alexsander Quick MD [facility] [place], [place] [address] Health Maintenance Due Date Last Done Comments [...] Most Recently Relevant to Health Maintenance Insurance [facility] Care Teams Refuse Driver Relationship Specialty Start Date End Date Gary Foreman MD [address] [place] [address] PCP - General 07/12/10
--- OUTSIDE RECORDS SUMMARY | 2024-06-14 19:01 | XMS_ITS | Encounter Summary ---
Author Organization [facility] Address [address] [place] [address] Care Team Providers Care Bean Sorter Name Role Phone Unavailable Primary Care Provider Unavailabl e Encounter Details Date Type Department Care Team (Late st Contact Info) Description 10/15/2008 Historical Ophthalmology RST OPH Gary Wellington M.D. 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 He will call with his director multiple sclerosis center's name and address, I will write him with the suggestion. Continue current Rx. Recheck 1 month CDM Reports - EYEGEN Id: [id number] Status: Fnl documented in this encounter Plan of Treatment Not on file documented as of this encounter Visit Diagnoses Not on filedocumented in this encounter
--- OUTSIDE RECORDS SUMMARY | 2024-06-14 19:01 | XMS_ITS | Encounter Summary ---
Author Organization [facility] Address [address] [place] [address] Care Team Providers Care Tamping Machine Operator Name Role Phone Unavailable Primary Care Provider Unavailabl e Encounter Details Date Type Department Care Team (Late st Contact Info) Description 07/23/2008 Historical Ophthalmology RST OPH Gary Wellington M.D. 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
--- OUTSIDE RECORDS SUMMARY | 2024-06-14 19:01 | XMS_ITS | Encounter Summary ---
Author Organization [facility] Address [address] [place] [address] Care Team Providers Care Shank Cutter Name Role Phone Unavailable Primary Care Provider Unavailabl e Encounter Details Date Type Department Care Team (Late st Contact Info) Description 12/30/2008 Historical Ophthalmology RST OPH Gary Wellington M.D. 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
--- OUTSIDE RECORDS SUMMARY | 2024-06-14 19:01 | XMS_ITS | Encounter Summary ---
Author Organization [facility] Address [address] [place] [address] Care Team Providers Care Game Tester Name Role Phone Unavailable Primary Care Provider Unavailabl e Encounter Details Date Type Department Care Team (Late st Contact Info) Description 08/16/2008 Historical Ophthalmology RST OPH Gary Wellington M.D. 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
--- OUTSIDE RECORDS SUMMARY | 2024-06-14 19:01 | XMS_ITS | Encounter Summary ---
Author Organization [facility] Address [address] [place] [address] Care Team Providers Care Back Tufter Name Role Phone Unavailable Primary Care Provider Unavailabl e Encounter Details Date Type Department Care Team (Late st Contact Info) Description 09/06/2008 Historical Ophthalmology RST OPH Gary Wellington M.D. 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
--- OUTSIDE RECORDS SUMMARY | 2024-06-14 19:01 | XMS_ITS | Clinical Summary ---
Author Organization [facility] Address [address] [place] [address] Care Team Providers Care Volleyball Referee Name Role Phone Unavailable Primary Care Provider Unavailabl e Source Comments Patient records contain information from all sites at [facility]. For routine questions regarding patient records, call [phone] during business hours, M-F 8:00 AM - 5:00 PM Central Time. Record requests for emergency care only can be directed to [phone] at any time.[facility] Allergies Active Allergy Reactions Criticality Noted [...] Tobacco: Never Tobacco Cessation:Counseling Given: Not Answered [facility] Utilities Answer Date Recorded In the [...] and Family Not on file 05/11/2020 Attends [employer] Not on file 05/11 Do you belong to any clubs o r organizations such as adventist groups, unions, fraternal or athletic groups, or [...] and heating? Not hard at all 05/11/2020 [employer] [place] [facility] Occupat ional Health - Occupational Stress [...] your living situation today? I have a [facility] place to live 06/26/2023 Education Answer Date Recorded What is the highest level of school you have completed or the highest degree you have received? 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 LAB BLOOD ADD-ON Final Result [facility] [place] [address] [place] [address], [facility] [address] [place] [address] * (ABNORMAL) Lipid Panel (10/29/2016 7:05 AM CDT) Cholesterol, Total 218(H) SeeComment MG/DL [facility] [place] Comment: REFERENCE VALUE Desirable: < 200 Borderline high: 200 - 239 High: > or = 240 Triglycerides 76 SeeComment MG/DL [facility] [place] Comment: REFERENCE VALUE Normal: <150 Borderline high: 150-199 High: 200-499 Very high: > or =500 Cholesterol, Non-HDL, Calculated 163(H) SeeComment MG/DL [facility] [place] Comment: REFERENCE VALUE Desirable: <130 Above Desirable: 130-159 Borderline high: 160-189 High: 190-219 Very high: > or =220 Cholesterol, HDL, S 55 >=40 MG/DL [facility] [place] Calculated LDL 148(H) SeeComment MG/DL [facility] [place] Comment: REFERENCE VALUE Desirable: <100 Above Desirable: 100-129 Borderline high: 130-159 High: 160-189 Very high: > or =190 10/29/2016 7:05 AM CDT 10/29/2016 7:05 AM CDT us Gary Lind M.D. LAB BLOOD ADD-ON Final Res ult [facility] [place] [address] [place] [address], [facility] from Last 3 Months or Most Recently Relevant to Health Maintenance Insurance [employer] [place] [address]
--- OUTSIDE RECORDS SUMMARY | 2024-06-14 19:01 | XMS_ITS | CCD ---
Author Name Interface, [id number] lity Address [address] [place] [address] Organization [facility] Address [address] [place] [address] Care Team Providers Care Five Piece Expansion Maker Hand Name Role Phone Aarti Guajardo Unavailable Unavailab le Reason for Visit Encounters Medications Social History
--- OUTSIDE RECORDS SUMMARY | 2024-06-14 19:01 | XMS_ITS | Encounter Summary ---
Author Organization [facility] Address [address] [place] [address] Care Team Providers Care Customer Service Assistant Name Role Phone Unavailable Primary Care Provider Unavailabl e Encounter Details Date Type Department Care Team (Late st Contact Info) Description 03/14/2009 Historical Ophthalmology RST OPH Gary Wellington M.D. 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
--- OUTSIDE RECORDS SUMMARY | 2024-06-14 19:01 | XMS_ITS | Encounter Summary ---
Author Organization [facility] Address [address] [place] [address] Care Team Providers Care Feed Crusher Name Role Phone Unavailable Primary Care Provider Unavailabl e Encounter Details Date Type Department Care Team (Late st Contact Info) Description 07/09/2008 Historical Ophthalmology RST OPH Gary Wellington M.D. 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
--- OUTSIDE RECORDS SUMMARY | 2024-06-14 19:01 | XMS_ITS | Clinical Summary ---
Author Organization [facility] Address [address] [place] [address] Care Team Providers Care Seafood Process Worker Name Role Phone Jon Irene MD Unavailable [phone] Soraida Marion MD Unavailable [phone] Alexsander Quick Unavailable [phone] Cezar Esparza MD Primary Care Provider [...] sprayIndication s:Allergy, unspecified, initial encounter Inhale 1 [place] into both nostrils 2 times daily. For [...] Type Department Care Team Description 05/30/2024 Refill [facility] [address] [place] [address] Tanvi Richardson PA Refill Request (Albuterol Hfa) 05/14/2024 9:00 AM COFFEE SHOP AIDE Office Visit [facility] [address] [place] [address] Tanvi Richardson PA Cough 05/14/2024 Travel 04/17/2024 10:05 AM COFFEE SHOP AIDE Office Visit [facility] [address] [place] [address] Cezar Esparza MD Derm Problem (Rash on bilateral arms, back); Ear Problem (Bilateral ear, redness, warm to touch, painful) 04/17/2024 Travel 04/16/2024 Travel 04/13/2024 9:00 AM COFFEE SHOP AIDE Office Visit [facility] [address] [place] [address] Tanvi Richardson PA Rash (Red bumpy and itching x month /Left arm and back ) 04/13/2024 Travel 03/20/2024 8:40 AM COFFEE SHOP AIDE Office Visit [facility] [address] [place] [address] Tanvi Richardson PA Throat Problem 03/20/2024 Travel from Last 3 Months Immunizations Name Administration Dates Next Due AMB Influenza, IIV3 (Age >=3 years)(Flu Clinic Only) 01/13/2009 AMB Influenza, IIV4 PF (=>6 mos Flulaval,Fluzone Fluarix)(Flu Clinic Only) 01/08/2020 COVID-19 vaccine (PushPage 30mcg/0.3mL) PF, MDV 07/19/2020,06/28/2020 Hepatitis A (Adult) [...] on file Legal Sex Male 5:16 AM COFFEE SHOP AIDE Gender Identity Not on file Sexual Orientation Not on file Occupation Industry Job Start Date Job End Date [employer] Not on file Not on file Not on fi le Not on file Not on file Not on file Not on file Obstetrics History Last Filed Vital Signs Vital Sign Reading Time Taken Comments Blood Pressure 144/89 05/14/2024 8:53 AM COFFEE SHOP AIDE Pulse 112 05/14/2024 8:53 AM COFFEE SHOP AIDE Temperature 36.8 C (98.2 F) 05/14/2024 8:53 AM COFFEE SHOP AIDE Respiratory Rate 18 03/09/2024 8:38 AM COFFEE SHOP AIDE Oxygen Saturation 94% 05/14/2024 8:53 AM COFFEE SHOP AIDE Inhaled Oxygen Concentration - - Weight 115.2 kg (254 lb) 04/17/2024 10:14 AM COFFEE SHOP AIDE Height 170.2 cm (5' 7) 02/28/2024 9:53 AM COFFEE SHOP AIDE Body Mass Index 39.78 02/28/2024 9:53 AM COFFEE SHOP AIDE Plan of Treatment Health Maintenance Due Date [...] STREP ONLY CLINIC Routine 03/20/2024 8:43 AM COFFEE SHOP AIDE Sore throat LIPID PANEL W REFLEX MEASURED LDL Routine 08/22/2023 9:25 AM CDT Hyperlipidemia, unspecified hyperlipidemia type ANTI HCV Routine 01/01/2022 8:55 AM CDT Need for hepatitis C screening test COLONOSCOPY SCREENING Routine 11/13/2018 12:00 PM CDT Epigastric pain Generalized abdominal pain from Last 3 Months or Most Recently Relevant to Health Maintenance Results * THROAT RAPID STREP ONLY CLINIC (03/20/2024 8:43 AM COFFEE SHOP AIDE) POC, GROUP A STREP NOT DETECTED NOT DETECTED [facility] Comment: The [place] [employer] recommends that a throat culture be performed if a rapid group A streptococcus assay yields a negative result. [facility] recommends Streptococcus, Group A culture. Throat SPECIMEN FROM THROAT / Unknown 03/20/2024 8:43 AM COFFEE SHOP AIDE 03/20/2024 8:44 AM COFFEE SHOP AIDE Tanvi BOWLES MICROBIOLOGY Final Result [facility] [address] [place] [address], [facility] [address] [place] [address] * (ABNORMAL) LIPID PANEL W REFLEX MEASURED LDL (08/22/2023 9:25 AM CDT) CHOLESTEROL,TOTAL 246(H) 100 - 199 mg/dL 08/22/2023 6:31 PM CDT [facility] Comment: Cholesterol, Total Reference Ranges Desirable <200 mg/dL Borderline 200-239 mg/dL High >=240 mg/dL TRIGLYCERIDES 70 <150 mg/dL 08/22/2023 6:31 PM CDT [facility] HDL CHOLESTEROL 62 >40 mg/dL 6:31 PM CDT [facility] NON-HDL CHOLESTEROL 184(H) <145 mg/dl 08/22/2023 6:31 PM CDT [facility] CHOL/HDL RATIO 3.97 <4.50 08/22/2023 6:31 PM CDT [facility] LDL CHOLESTEROL 170(H) <=130 mg/dL 08/22/2023 6:31 PM CDT [facility] VLDL CHOLESTEROL 14 <=30 mg/dL 08/22/2023 6:31 PM CDT [facility] PROVIDER ORDERED STATUS RANDOM 08/22/2023 6:31 PM CDT [facility] Blood BLOOD SPECIMEN / Unknown Venipuncture / Unknown 08/22/2023 9:25 AM CDT 08/22/2023 9:25 AM CDT us Maranda Borja MD CHEMISTRY Final Resul t [facility] [address] [place] [address], * ANTI HCV (01/01/2022 8:55 AM CDT) HEPATITIS C ANTIBODY Non-React jesenia Non-React jesenia 01/02/2022 5:36 AM CDT [facility] Comment:Antibodies to HCV no t detected; does not exclude the possibility of exposure to HCV. Blood BLOOD SPECIMEN / Unknown Venipuncture / Unknown 01/01/2022 8:55 AM CDT 01/01/2022 8:56 AM CDT us Antonieta Stern DO SEND OUTS Final Result [facility] [address] [place] [address], [place] * COLONOSCOPY SCREENING (11/13/2018 12:00 PM CDT) us Nura Caban MD GI PROCEDURE ORD Final Res ult from Last 3 Months or Most Recently Relevant to Health Maintenance Insurance [employer] Member Subscriber Plan / Payer (Ef fective 2021-Present) Name:Pranay Hoff Relation to Subscriber:Self Name:rPanay Hoff Payer ID:Not on file Group ID:Not on file Type:Not on file Address: [address] [place] [id number] [employer] [address] Advance Directives * Full Code (Latest [...] 7:11 AM 08/20/2011 2:05 AM Care Teams Seafood Process Worker Relationship Specialty Start Date End Date Cezar Esparza MD [address] [place] [address] PCP - General Family Practice 01/10/19 Jon Irene MD [address] [place] [address] Rheumatology 03/01/11 Soraida Marion MD [address] [place], [place] [id number] Pulmonology Pulmonary Medicine 04/09/14 Alexsander Quick [address] [place] [address] Rheumatology Rheumatology 06/06/14
--- NOTE | 2024-06-14 19:29 | ED.GENADULT ---
HPI - General Adult General Date Seen: 06/14/24 Chief complaint: Abdominal Pain Stated complaint: Abdominal pain Time Seen by Provider: 06/14/24 18:44 History of Present Illness HPI narrative: Patient is a 53-year-old male here with his for evaluation of upper abdominal pain which has been there on and off for the past week or so. He said it started last and was pretty bad that day but he felt somewhat better on Tuesday and the weekend he was okay. Over the past few days pain has persisted on and off, this morning he says he was feeling pretty good so he had [place] toast and then he had pizza for lunch, and since then he has been having more severe pain. Pain is epigastric and across the upper abdomen with some radiation into the back. He has had nausea with no vomiting. He has not had chest pain or difficulty breathing. No fevers. No urinary symptoms. He does have a history of prior pancreatitis, he status post cholecystectomy and denies significant alcohol use. Triglycerides per his report are not excessively elevated and the clear cause for his pancreatitis is not been determined. He had an endoscopy it sounds like an ERCP about a year ago that was unremarkable. He does have a history of gastroesophageal reflux, takes Protonix for that. He tried going up on the dose of that once when he was evaluated for epigastric pain but did not show pancreatitis, he said on the higher dose he felt like his stomach was upset all the time so he went back to the regular dose. He does not smoke, denies other significant medical history. Related Data Home Medications ?Medication ?Instructions ?Recorded ?Confirmed albuterol sulfate 90 mcg/actuation 1 inh inhalation ONCE 11/06/21 04/09/24 aerosol inhaler cetirizine 10 mg capsule (All Day 10 mg PO QDAY PRN 11/06/21 04/09/24 Allergy (cetirizine)) fluticasone 250 mcg-salmeterol 50 1 inh inhalation BID 11/06/21 04/09/24 mcg/dose blistr powdr for inhalation (Advair Diskus) omeprazole 20 mg capsule,delayed 20 mg PO QDAY 11/06/21 04/09/24 release sulfasalazine 500 mg tablet 0.5 g PO QDAY 11/06/21 04/09/24 zafirlukast 10 mg tablet 20 mg PO BID 11/06/21 04/09/24 ipratropium 0.5 mg-albuterol 3 mg 3 ml inhalation Q6H PRN 09/08/22 04/09/24 (2.5 mg base)/3 mL nebulization soln fluconazole 200 mg tablet 200 mg PO DAILY 02/26/23 04/09/24 Previous Rx's ?Medication ?Instructions ?Recorded nystatin 100,000 unit/mL oral 5 ml PO QID #200 mL 11/06/21 suspension ondansetron HCl 4 mg tablet 4 mg PO Q6H #20 tabs 08/30/22 pantoprazole 40 mg tablet,delayed 40 mg PO DAILY #20 tabs 08/30/22 release (Protonix) hydrocortisone 2.5 % topical cream 1 applic topical BID PRN rash #20 04/09/24 grams Allergies Allergy/AdvReac Type Severity Reaction Status Date / Time zolpidem Allergy Severe Verified 04/09/24 13:01 cefuroxime Allergy Intermediate Diarrhea Verified 04/09/24 13:01 fluorometholone Allergy Intermediate Diarrhea Verified 04/09/24 13:01 banana Allergy Mild Verified 04/09/24 13:01 clavulanic acid Allergy Mild Verified 04/09/24 13:01 tetracycline Allergy Mild Verified 04/09/24 13:01 Review of Systems Status of ROS: Reports: 10 or more systems reviewed and unremarkable except as noted in History and below [facility] Medical History Sore throat ?J02.9 - Acute pharyngitis, unspecified (ICD-10) Social History Smoking Status: Never smoker Do you use any of these nicotine containing products: None Second hand tobacco smoke exposure: No How often do you have a drink containing alcohol: monthly or less How many standard drinks containing alcohol do you have on a typical day: 1 or 2 How often do you have six or more drinks on one occasion: Never AUDIT-C Alcohol total score: 1 Non-prescribed substance use: denies use service: No Exam Narrative: Exam Narrative: Vital signs reviewed In general, alert, nontoxic mid age male. He is holding an emesis bag. Head: Normocephalic, atraumatic. Eyes: Sclera clear. Pupils equal and reactive. ENT: Mucous membranes moist. Neck: Supple without adenopathy. Heart: Regular rate and rhythm without murmur. Lungs: Clear. No increased work of breathing, crackles or wheezes. Abdomen: Soft, nondistended somewhat protuberant. He has upper abdominal pain without rebound guarding or rigidity. No lower abdominal tenderness. Extremities: Well perfused, pulses intact. No significant edema. Neurologic: Alert, conversant. Speech fluent, face symmetric. Moves all extremities equally. Skin: Warm, dry well perfused. Affect: Normal. Const: Vital Signs, click to edit/add: Vital Signs - 24 hr 06/14/24 17:54 06/14/24 19:47 06/14/24 20:00 Temperature 99.6 F Pulse Rate 85 91 Pulse Rate [Pulse Oximeter] 92 Respiratory Rate 20 Blood Pressure Blood Pressure [Ri ght Upper Arm] 155/107 H Pulse Oximetry 96 94 96 Oxygen Delivery Me thod Room Air 06/14/24 20:15 06/14/24 20:16 Temperature Pulse Rate 90 86 Pulse Rate [Pulse Oximeter] Respiratory Rate Blood Pressure 137/84 Blood Pressure [Ri ght Upper Arm] Pulse Oximetry 96 94 Oxygen Delivery Me thod Course Course ED Course: Patient does request pain medications, I gave him morphine 4 mg, Toradol 15 mg and Zofran 4 mg as well as 500 mL of normal saline IV. His evaluation typically has included labs and a CT scan, last time he was here lipase was not significantly elevated but he did have evidence of some stranding around the pancreas and was felt to have acute pancreatitis at that time. I will order a CT scan, other diagnostic considerations would include gastritis, peptic ulcer disease, gastroesophageal reflux, perforated viscus, bowel obstruction,, diverticulitis among others. His labs are really quite reassuring. As with all of his other visits he has a normal lipase. His CRP is mildly elevated at 2.1, troponins negative. He had an EKG which showed a sinus rhythm, ventricular rate of 82, no ST segment changes and normal T-waves. His liver panel was notable only for an alk-phos of 26. All labs were reviewed. CT scan by my review did show a little bit of stranding around the pancreas, I do not see any cysts, I do not see any other acute findings. Read by Radiology and report reviewed, read as uncomplicated mild acute pancreatitis. Unclear why he has a normal lipase with these episodes that clinically fit with pancreatitis and associated with findings on CT scan. He did feel improved after morphine and Zofran. I gave him oral oxycodone which he tolerated without difficulty. He also was having some acid reflux and had a GI cocktail which resolved that portion of things. At this time, I think it is reasonable to let him go home, clear liquids for the next 24-48 hours, advance diet as able thereafter. I prescribed oxycodone, 10 tablets as well as Zofran from [email or web address]. Instructed to return for worsening or severe pain, fevers, uncontrolled vomiting or other worsening. Primary care follow-up recommended in a couple of weeks. Vital Signs Vital signs: Initial Vital Signs Temperature 99.6 F 06/14/24 17:54 Temperature Source Oral 06/14/24 17:54 Pulse Rate 92 06/14/24 17:54 Respiratory Rate 20 06/14/24 17:54 Blood Pressure 155/107 H 06/14/24 17:54 Blood Pressure Mean 123 H 06/14/24 17:54 Pulse Oximetry 96 06/14/24 17:54 Oxygen Delivery Method Room Air 06/14/24 17:54 Vital Signs Temperature 99.6 F 06/14/24 17:54 Pulse Rate 92 06/14/24 17:54 Respiratory Rate 20 06/14/24 17:54 Blood Pressure 155/107 H 06/14/24 17:54 Pulse Oximetry 96 06/14/24 17:54 Oxygen Delivery Method Room Air 06/14/24 17:54 Temperature 99.6 F 06/14/24 17:54 Pulse Rate 86 06/14/24 20:16 Respiratory Rate 20 06/14/24 17:54 Blood Pressure 137/84 06/14/24 20:15 Pulse Oximetry 94 06/14/24 20:16 Oxygen Delivery Method Room Air 06/14/24 17:54 Medications Administered Medications: Discontinued Medications Generic Name Dose Route Start Last Admin Trade Name Freq PRN Reason Stop Dose Admin Sodium Chloride 500 mls @ 500 mls/hr 06/14/24 18:51 06/14/24 20:03 0.9 % Sodium Chloride 500 Ml IV 06/14/24 19:50 Infused .Q1H ONE Infusion Ketorolac Tromethamine 15 mg 06/14/24 18:51 06/14/24 19:33 Ketorolac 15 Mg/Ml Inj IVP 06/14/24 18:52 15 mg ONCE ONE Administration Lidocaine/Aluminum/Magnesium/Simeth 30 ml 06/14/24 21:13 06/14/24 21:27 Gi Cocktail (Visc Lido/Antacid) 30 Ml PO 06/14/24 21:14 30 ml ONCE ONE Administration Morphine Sulfate 4 mg 06/14/24 18:51 06/14/24 19:32 Morphine 4 Mg/Ml Inj IVP 06/14/24 18:52 4 mg ONCE ONE Administration Ondansetron HCl 4 mg 06/14/24 18:51 06/14/24 19:32 Ondansetron 2 Mg/Ml Inj IVP 06/14/24 18:52 4 mg ONCE ONE Administration Oxycodone HCl 5 mg 06/14/24 21:06 06/14/24 21:27 Oxycodone 5 Mg Tablet PO 06/14/24 21:07 5 mg ONCE ONE Administration Medical Decision Making Lab Data Labs: Lab Results 06/14/24 06/14/24 Range/Units 18:52 19:26 WBC 9.33 (4.50-11.00) K/uL RBC 5.18 (4.30-5.90) m/uL Hgb 15.1 (13.5-17.5) gm/dL Hct 45.0 (37.0-53.0) % MCV 87 (80-100) fL MCH 29 (26-34) pg MCHC 34 (32-36) gm/dL RDW Coeff of José Miguel 12.9 (11.5-15.5) % Plt Count 341 (140-440) K/uL Neut % (Auto) 59.8 (42.0-72.0) % Lymph % (Auto) 24.4 (20-44) % Alfalfa % (Auto) 10.4 (0.0-11.0) % Eos % (Auto) 4.9 (0.0-7.0) % Baso % (Auto) 0.4 (0.0-3.0) % Neut # (Auto) 5.57 (1.7-7.0) K/uL Lymph # (Auto) 2.28 (0.90-2.90) K/uL Alfalfa # (Auto) 1.00 H (0.00-0.90) K/UL Eos # (Auto) 0.46 (0.00-0.50) K/uL Baso # (Auto) 0.04 (0.00-0.30) K/uL Abs Immat Gran (auto) 0.01 (0.00-0.30) K/uL Imm/Tot Granulo (auto) 0.1 % Sodium 138 (135-149) mmol/L Potassium 3.9 (3.6-5.1) mmol/L Chloride 101 (96-114) mmol/L Carbon Dioxide 25 (20-32) mmol/L Anion Gap 12 (7-15) mEq/L BUN 9 (7-30) mg/dL Creatinine 0.9 (0.5-1.5) mg/dL Estimated GFR 102 ml/min Glucose 99 (60-115) mg/dL Calcium 9.4 (8.4-10.6) mg/dL Total Bilirubin 0.4 (0.1-1.5) mg/dL Direct Bilirubin 0.4 (0.0-0.5) mg/dL AST 23 (12-35) U/L ALT 25 (4-50) U/L Alkaline Phosphatase 26 L (40-150) U/L C-Reactive Protein 2.1 H (0.5-1.0) mg/dL Total Protein 7.6 (6.0-8.3) g/dL Albumin 4.5 (3.3-5.0) g/dL Lipase 151 (23-300) U/L POC Troponin I 0.00 L (0.01-0.04) ng/ml Imaging Data CT scan - abdomen: Attestation: I have reviewed the pertinent imaging results. Radiologist's impression: Patient: Pranay Hoff MR#: [id number] : 1970 Acct:[id number] Loc: ED Service Date: 06/14/[address]: Ordering Physician: Yue Glass M.D. Date of Service: 06/14/24 Procedure(s): CT abdomen pelvis w con Accession Number(s): [id number] cc: Yue Glass M.D.; Cezar Esparza M.D.~ For Patients: As a result of the 21st Century Cures Act, medical imaging exams and procedure reports are released immediately into your electronic medical record. You may view this report before your referring provider. If you have questions, please contact your health care provider. INDICATION: Epigastric pain, history of pancreatitis. TECHNIQUE: CT abdomen and pelvis acquired with 121 cc of Isovue 370 IV contrast. COMPARISON: CT abdomen and pelvis 12/31/2023. FINDINGS: Lower chest: Unremarkable. Liver: Unremarkable. Normal in size and attenuation. No suspicious masses. Gallbladder and bile ducts: Status post cholecystectomy. No abnormal biliary ductal dilatation. Pancreas: Mild peripancreatic inflammatory stranding about the head and uncinate process. Homogeneous parenchymal enhancement. No mass or peripancreatic fluid collection. Spleen: Unremarkable. Normal in size. No masses. Adrenal glands: Unremarkable. No nodules. Kidneys: Unremarkable. No suspicious masses, stones, or hydronephrosis. GI tract: Unremarkable. Normal in caliber. No sign of mass or inflammation. Normal appendix. Vasculature: Abdominal aorta is normal in caliber. Mesenteric arteries are patent. Lymph nodes: No lymphadenopathy. Peritoneum/Abdominal Wall: Unremarkable. No free air or significant free fluid. Pelvis: Unremarkable. 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 Otherwise, unremarkable for age. IMPRESSION: 1. Mild acute interstitial edematous pancreatitis centered about the pancreatic head and uncinate process. No evidence for complication. Please note that all CT scans at this facility use dose modulation, iterative reconstruction, and/or weight-based dosing when appropriate to reduce radiation dose to as low as reasonably achievable. Dictated by Pranay Ibanez MD @ 06/14/2024 8:56:26 PM Discharge Plan Discharge Clinical Impression: Pancreatitis Patient Disposition: Home, Self-Care Condition: Improved Instructions: Pancreatitis (ED) Additional Instructions: You can use Tylenol 1000 mg 3 times daily, oxycodone as needed for more significant pain. Zofran if needed for nausea or vomiting. I would recommend clear liquids for 24-48 hours, cautiously advanced at that time. If pain is worsening, becomes severe, you have new symptoms such as high fevers, uncontrolled vomiting or other worsening, return to the ER at any time. Primary care follow-up for recheck in the next couple of weeks. Prescriptions: No Action fluticasone propion-salmeterol [Advair Diskus] 250-50 mcg/dose blister with device 1 inh inhalation BID zafirlukast 10 mg tablet 20 mg PO BID Rx Instructions: must be taken on empty stomach, at least 1 hr before or 2 hrs after a meal/food sulfasalazine 500 mg tablet 0.5 g PO QDAY Rx Instructions: give with food (meal/snack) albuterol sulfate 90 mcg/actuation HFA aerosol inhaler 1 inh inhalation ONCE omeprazole 20 mg capsule,delayed release(DR/EC) 20 mg PO QDAY All Day Allergy (cetirizine) 10 mg capsule 10 mg PO QDAY PRN nystatin 100,000 unit/mL suspension 5 ml PO QID Qty: 200 1RF Rx Instructions: swish and swallow fluconazole 200 mg tablet 200 mg PO DAILY ipratropium-albuterol 0.5 mg-3 mg(2.5 mg base)/3 mL solution for nebulization 3 ml inhalation Q6H PRN hydrocortisone 2.5 % cream 1 applic topical BID PRN (Reason: rash) Qty: 20 0RF ondansetron HCl 4 mg tablet 4 mg PO Q6H Qty: 20 0RF pantoprazole [Protonix] 40 mg tablet,delayed release (DR/EC) 40 mg PO DAILY Qty: 20 2RF Follow Up/Referrals: Cezar Esparza MD [Primary Care Provider] - Stand Alone Forms: [employer] Info Instructions
[2024-06-14] MEDS: MORPHINE 4 MG/ML INJ IVP (19:32)
[2024-06-14] MEDS: ONDANSETRON 2 MG/ML inj 4 MG IVP (19:32)
[2024-06-14] MEDS: 0.9 % SODIUM CHLORIDE 500 ML 500 ML IV (19:33)
[2024-06-14] MEDS: KETOROLAC 15 MG/ML inj IVP (19:33)
[2024-06-14 19:36] LABS: Basophils Absolute Auto 0.04 K/uL (0.00-0.30); Basophils Percent Auto 0.4 % (0.0-3.0); Eosinophils Absolute Auto 0.46 K/uL (0.00-0.50); Eosinophils Percent Auto 4.9 % (0.0-7.0); Hemoglobin* 15.1 gm/dL (13.5-17.5); Immature Granulocytes Abs Auto 0.01 K/uL (0.00-0.30); Immature Granulocytes Pct Auto 0.1 %; Lymphocytes Absolute Auto 2.28 K/uL (0.90-2.90); Lymphocytes Percent Auto 24.4 % (20-44); Mean Corpuscular HGB Conc 34 gm/dL (32-36); Mean Corpuscular Hemoglobin 29 pg (26-34); Mean Corpuscular Volume 87 fL (80-100); Monocytes Percent Auto 10.4 % (0.0-11.0); Neutrophils Absolute Auto 5.57 K/uL (1.7-7.0); Neutrophils Percent Auto 59.8 % (42.0-72.0); Platelet Count* 341 K/uL (140-440); RDW Coefficient of Variation % 12.9 % (11.5-15.5); Red Blood Count 5.18 m/uL (4.30-5.90); White Blood Count* 9.33 K/uL (4.50-11.00)
[2024-06-14 19:39] LABS: Slide Review Reflex No
[2024-06-14 19:47] VITALS: PULSE 85; O2SAT 94
[2024-06-14 20:00] VITALS: PULSE 91; O2SAT 96
[2024-06-14 20:01] LABS: Chloride* 101 mmol/L (96-114); Potassium* 3.9 mmol/L (3.6-5.1); Sodium* 138 mmol/L (135-149)
[2024-06-14 20:02] LABS: Albumin* 4.5 g/dL (3.3-5.0)
[2024-06-14 20:04] LABS: Blood Urea Nitrogen* 9 mg/dL (7-30); Creatinine* 0.9 mg/dL (0.5-1.5); Estimated Glomerular Filt Rate 102 ml/min
[2024-06-14 20:05] LABS: Alkaline Phosphatase* 26 U/L (40-150); Anion Gap 12 mEq/L (7-15); Aspartate Amino Transferase* 23 U/L (12-35); Bilirubin Direct* 0.4 mg/dL (0.0-0.5); Bilirubin Total* 0.4 mg/dL (0.1-1.5); Calcium* 9.4 mg/dL (8.4-10.6); Carbon Dioxide* 25 mmol/L (20-32); Glucose* 99 mg/dL (60-115); Lipase* 151 U/L (23-300); Total Protein* 7.6 g/dL (6.0-8.3)
[2024-06-14 20:06] LABS: Alanine Aminotransferase* 25 U/L (4-50)
[2024-06-14 20:07] LABS: C Reactive Protein* 2.1 mg/dL (0.5-1.0)
[2024-06-14 20:15] VITALS: BP 137/84; PULSE 90; O2SAT 96
[2024-06-14 20:16] VITALS: PULSE 86; O2SAT 94
[2024-06-14] MEDS: OXYCODONE 5 MG TABLET PO (21:27)
[2024-06-14] MEDS: GI COCKTAIL (VISC LIDO/ANTACID) 30 ML PO (21:27)
[2024-06-14 21:51] LABS: Appearance Urine Clear (Clear); Bilirubin Urine Negative (Negative); Blood Urine Negative (Negative); Color Urine Yellow (Yellow); Glucose Urine Negative (Negative); Ketones Urine 2+ (Negative); Leukocyte Esterase Urine Negative (Negative); Nitrite Urine Negative (Negative); Protein Urine Negative (Negative); Specific Gravity Urine <= 1.005 (1.000-1.030); Urobilinogen Urine 0.2 (0.2-1.0); pH Urine 5.5 (5.0-8.5)
[2024-06-14 22:09] LABS: RBC Urine 0-2 (0-2); Squamous Epithelial Cell Urine Few (None-Few); WBC Urine 0-2 (0-5)
== END 2024-06-14 22:18 | disposition home or self-care (01) ==
PROVIDERS: Emergency Provider Emergency Medicine; PCP Family Medicine
DX: K85.90 Acute pancreatitis without necrosis or infection, unspecified (principal)
CPT/HCPCS: 36415; 74177; 80048; 80076; 81001; 83690; 84484; 85025; 86140; 93005; 96374; 96375; 99284; 99285; A9270; J1885; J2270; J2405; J7030; Q9967

== ENCOUNTER 2024-11-11 11:45 | Emergency (ER) | payer OTHER, SELFPAY ==
[2024-11-11] VITALS (11 sets, daily range): BP systolic 133–165; BP diastolic 88–99; PULSE 69–78; RESP 14–39; TEMP 36.8; O2SAT 94–100; BMI 37.3
--- OUTSIDE RECORDS SUMMARY | 2024-11-11 11:47 | XMS_ITS | Patient Health Record ---
Author Organization [facility] Address [address] [place] [address] Care Team Providers Care Local Area Network Administrator Name Role Phone No Primary, Care Primary Care Provider UnavailJon Taylor [phone] eGnra NATARAJAN Carole Unavailable Unavailable Allergies No Known [...] W/U Status Risk Notes Problem Tension-type headache (768210139) Tension-type headache, unspecified, not intractable (G44.209) Active confirmed Problem Backache (019905607) Dorsalgia, unspecified (M54.9) Active confirmed Problem Segmental and somatic dysfunction (870537559) Segmental and somatic dysfunction of cervical region (M99.01) Active confirmed Problem Neck pain (M54.2) Active confirmed Encounters Encounter Location Date Provider Diagnosis [facility] [address] [place] [address] 11/23/2023 Jon Weiner Plan Of Treatment No Information Insurance Providers Payer Name Payer Address Payer Phone Subscriber Number Group Number Insured Name Patient Relationship to Insured Coverage Start Date Coverage End Date [facility] [address] [address] [place] [address] [phone] [id number] [phone] [id number] Susana Hoff Spouse - patient is the spouse of the insured 1 Medical (General) History Medical History History ICD Code General Past Medical History : Asthma,Stomach Ulcers,Arthritis,Headaches,Cancer,Acid Reflux,Sleep Apnea Surgical History Surgery Date(Month/Year) Left ear removal melanoma 03/30 Gallbladder 10/28
--- OUTSIDE RECORDS SUMMARY | 2024-11-11 11:47 | XMS_ITS | Clinical Summary ---
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 Gender Identity Not on file Sexual Orientation [...] ASTHMA CONTROL TEST 1970 CT COLONOGRAPHY 1970 DIABETES SCREENING 1970 FIT 1970 FLEX SIG 1970 sDNA (Cologuard) 1970 COLONOSCOPY 1980 COLORECTAL CANCER SCREENING 1980 HIV SCREENING 1985 HEPATITIS C SCREENING 1988 HEPATITIS B VACCINE (1 of 3 - 19+ 3-dose series) 1989 01/20/2005, 08/19/2004, 07/08/2004 LIPID 2010 YEARLY PREVENTIVE VISIT 01/01/2023 01/01/2022 COVID-19 VACCINE ( season) 2023 01/18/2021, 07/19/2020, 06/28/2020 PHQ-2 (once per calendar year) 2024 INFLUENZA VACCINE (#1) 2024 , 12/31/2020, 12/31/2020, Additional history exists DTAP/TDAP/TD VACCINE (4 - Td or Tdap) 09/13/2031 09/12/2021, 01/03/2012, 05/28/2005, Additional history exists PNEUMOCOCCAL VACCINE 50+ YEARS Completed 01/01/2022, 06/06/2014 ZOSTER VACCINE Completed 01/01/2022, 10/23/2020 HPV VACCINE (No Doses Required) Completed MENINGITIS VACCINE Aged Out No longer eligible based on patient's age to complete this topic Insurance [facility] [employer] [facility] Care Teams [place] Coiling Machine Setter Relationship Specialty Start Date End Date Cezar Esparza [facility] [place] [address] PCP - General Family Medicine 02/11/21 Aspen Weiner APRN DRILL INSTRUCTOR [address] [place] [address] [id number] [address] Nurse Practitioner Neurology 02/11/21
--- OUTSIDE RECORDS SUMMARY | 2024-11-11 11:48 | XMS_ITS | Clinical Summary ---
Author Organization [employer] Address [address] [place] [address] Care Team Providers Care Forestry Scientist Name Role Phone Gary Foreman MD Primary Care Provider [phone] Source Comments You are receiving this document as you are listed as the primary care provider,follow-up provider, or the patient has been referred to you for consultation.This is in compliance with the Medicare and[facility] EHR Incentive Program,which states Providers who transition their patient to another setting of careor provider of care or refers their patient to another provider of care shouldprovide summary care record for each transition of care or referral. [employer] Allergies Active Allergy Reactions Criticality Noted Date [...] (AKA RHINOCORT) 32 MCG/ACT nasal spray 1 [place] by Nasal route daily. 4 Active zafirlukast (AKA ACCOLATE) 10 MG tablet Take 1 Tablet (10 mg) by mouth daily. 4 Active diclofenac (VOLTAREN) 1 % gel Apply 2 g to skin 4 times daily as needed for Other (hand, knee, other joint pain). 100 g 3 9 Active pantoprazole (PROTONIX IV) 40 MG injection Administer 40 mg intravenously every 24 hours. 3 Active TRELEGY ELLIPTA 100-62.5-25 MCG/ACT inhaler Inhale 1 Puff daily. Active triamcinolone acetonide (KENALOG) 0.1 % cream Apply topically daily. 5 Active sulfaSALAzine (AZULFIDINE) 500 MG tabletIndicati ons:Iritis Take 1 Tablet (500 mg) by mouth two times a day. 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 use of drug 08/04/2015 Fatty liver 08/04/2015 Iron deficiency anemia 08/01/2014 Absolute anemia 07/31/2014 Iritis 11/05/2013 Multiple joint pain 11/05/2013 Encounter for long-term (current) use of medicat ions 11/05/2013 Overview (12/01/2016): Encounter for long-term (current) use of other medications Asthma 09/15/2002 Overview (12/01/2016): Asthma NOS Allergic rhinitis 09/15/2002 Overview (12/01/2016): Rhinitis Allergic NOS Lumbago 09/15/2002 Overview (12/01/2016): Pain Low Back Encounters Date Type Department Care Team Description 09/17/2024 8:50 AM CDT Lab Visit [facility] [address] [place] [address] Encounter for long-term (current) use of medications; Rash and nonspecific skin eruption 09/17/2024 8:15 AM CDT Office Visit Rheumatology at [facility] Special[facility] [place] [address] [place] [address] Alexsander Quick MD Iritis (Primary Dx); HLA B27 (HLA B27 positive); Encounter for long-term (current) use of medications; Multiple joint pain; Rash and nonspecific skin eruption; Atopic dermatitis, unspecified type 09/17/2024 Results Follow-Up Rheumatology at [address] [address] Alexsander Quick MD from Last 3 Months Immunizations Immunization Administration Dates Next Due Flu Vac (3+ yrs) 01/30/2013, 2,02/13/2011,2008,03/05/2003,04/16/2002,01/22/1999 Flu Vac Preserv Free (3+yrs) 02/13/2011 Fluzone Qiv Multidose Vial 0 .25 (6-35 Mos) 01/24/2017 HepA Adult (19+ yrs) 03/31/2012,06/27/2002 HepB Ped/Adol (0-18 yrs) 01/20/2005,08/19/2004,0 07/08/2004 Influenza IIV4 (Quadrivalent ) 0.5mL ([address]) 01/08/2020,01/10/2019,01/16/2018,2015,01/20/2015,12/24/2013,12/11/2013 Influenza, Unspecified Formulation 12/31/2020,,01/22/1999 MMR 08/15/1998 PPSV23 (Pneumovax) 06/06/2014 Pfizer Monovalent 12+ Purple Top 01/18/2021,04/1 ,06/28/2020 Td 12/06/1998 Td, Preservative Free 01/03/2012 Tdap [...] 36.5 C (97.7 F) 03/02/2021 9:02 AM TONAL REGULATOR Respiratory Rate - - Oxygen Saturation - - Inhaled Oxygen Concentration - - Weight 115.2 kg (254 lb) 09/15/2022 3:30 PM CDT Height - - Body Mass Index - - Plan of Treatment Upcoming Encounters Date Type Department Care Team (Late st Contact Info) Description 09/18/2025 3:45 PM CDT Appointment Rheumatology at [facility] [id number] [place] [phone] Alexsander Quick MD [address] [place], [place] [id number] Health Maintenance Due Date Last Done Comments Colon Cancer Screening Plan Due 1970 PSA Screening Discussion 1970 HIV Screening (Preventive Services) 1986 Adult Preventive Visit 1988 HepB Vaccine (1) 1989 01/20/2005, 02/2005, 07/08/2004 Cholesterol 10/13/2005 10/13/2000, 10/1998, 05/21/1997 COVID-19 Vaccine ( season) 2023 01/18/2021, 07/19/2020, 06/28/2020 Influenza Vaccine (#1) 2024 , 12/27/2022, 01/01/2022, Additional history exists DTaP/Tdap/Td Vaccine (4 - Tdap) 09/13/2031 09/12/2021, 01/03/2012, 05/28/2005, Additional history exists HepA Vaccine Completed 03/31/2012, 06/27/2002 Hep C Screening (Preventive Services) Completed 11/05/2013 Pneumococcal Vaccine 50+ Yrs Completed 01/01/2022, 06/06/2014 Zoster/Shingles Vaccine Completed 01/01/2022, 10/23 Hib Vaccine Aged Out No longer eligi ble based on patient's age to complete this topic IPV (Polio) Vaccine Aged Out No longe r eligible based on patient's age to complete this topic MCV4 Vaccine Aged Out No longer eligi ble based on patient's age to complete this topic Meningococcal B Vaccine Aged Out No l onger eligible based on patient's age to complete this topic Procedures Procedure Name Priority Date/Time Associated Diagnosis Comments COMPLETE BLOOD COUNT-W/DIFF Routine 09/17/2024 8:36 AM CDT Encounter for long-term (current) use of medications CELIAC DISEASE REFLEX WITH IGA Routine 09/17/2024 8:36 AM CDT Rash and nonspecific skin eruption CBC AND DIFFERENTIAL PANEL Routine 09/17/2024 8:36 AM CDT Encounter for long-term (current) use of medications CREATININE / GFR Routine 09/17/2024 8:36 AM CDT Encounter for long-term (current) use of medications AST Routine 09/17/2024 8:36 AM CDT Encounter for long-term (current) use of medications HEPATITIS C ANTIBODY, WITH REFLEX (ANTI-HCV) Routine 11/05/2013 10:13 AM CDT Iritis CHOL, HDL, LDL NON-FASTING Routine 10/13/2000 3:42 PM CDT from Last 3 Months or Most Recently Relevant to Health Maintenance Results * Celiac Disease Reflex with IgA (09/17/2024 8:36 AM CDT) IgA, Serum 216 63 - 484 mg/dL 09/18/2024 12:49 PM CDT [facility] Tissue Transglutaminase Antibody, IgA 0.5 0.0 - 6.9 U/mL 09/18/2024 12:49 PM CDT [facility] Tissue Transglutaminase Antibody, IgA Interpretation Negative Negative 09/18/2024 12:49 PM CDT [facility] Blood Venipuncture / Unknown 09/17/2024 8:36 AM CDT 09/17/2024 8:36 AM CDT Alexsander Quick MD LAB_1 Final Result Performing Organization Address [facility]/ZIP Co de Phone Number [facility] [address] * Creatinine / GFR (09/17/2024 8:36 AM CDT) Creatinine 0.94 0.73 - 1.18 mg/dL 09/17/2024 9:44 AM T [facility] GFR, Estimated >60 >60 mL/min/1.7 3m2 09/17/2024 9:44 AM CDT [facility] Blood Venipuncture / Unknown 09/17/2024 8:36 AM CDT 09/17/2024 8:36 AM CDT Alexsander Quick MD LAB_1 Final Result Performing Organization Address [facility] de Phone Number [facility] [address] [place] [address] * Complete Blood Count-W/Diff (09/17/2024 8:36 AM CDT) WBC 5.8 3.5 - 10.5 x10(9)/L 09/17/2024 8:39 AM T [facility] RBC 5.35 4.32 - 5.72 x10(12)/L 09/17/2024 8:39 AM [facility] Hemoglobin 15.6 13.5 - 17.5 g/dL 09/17/2024 8:39 AM [facility] HCT 46.1 38.8 - 50.0 % 09/17/2024 8:39 AM [facility] MCV 86.2 80.0 - 100.0 fL 09/17/2024 8:39 AM [facility] MCH 29.2 27.6 - 33.3 pg 09/17/2024 8:39 AM [facility] MCHC 33.8 31.5 - 35.2 g/dL 09/17/2024 8:39 AM [facility] RDW 13.6 11.9 - 15.5 % 09/17/2024 8:39 AM [facility] Platelets 295 150 - 450 x10(9)/L 09/17/2024 8:39 AM [facility] Automated NRBC 0 <=0 /100 WBC 09/17/2024 8:39 AM [facility] Neutrophil Absolute 3.0 1.7 - 7.0 10(9)/L 09/17/2024 8:39 AM [facility] Lymphocyte Absolute 1.6 1.0 - 4.8 10(9)/L 09/17/2024 8:39 AM [facility] Monocyte Absolute 0.5 0.2 - 0.9 10(9)/L 09/17/2024 8:39 AM [facility] Eosinophil Absolute 0.5 0.0 - 0.5 10(9)/L 09/17/2024 8:39 AM [facility] Basophil Absolute 0.1 0.0 - 0.3 10(9)/L 09/17/2024 8:39 AM [facility] Immature Granulocyte % 0.3 0.0 - 0.5 % 09/17/2024 8:39 AM [facility] Blood Venipuncture / Unknown 09/17/2024 8:36 AM CDT 09/17/2024 8:36 AM T us Alexsander Quick MD LAB_1 Final Result [facility] [address] [place] [address], [facility] * AST (09/17/2024 8:36 AM CDT) AST (SGOT) 25 10 - 40 U/L 09/17/2024 9:44 AM [facility] Blood Venipuncture / Unknown 09/17/2024 8:36 AM CDT 09/17/2024 8:36 AM CDT Alexsander Quick MD LAB_1 Final Result Performing Organization Address [facility] de Phone Number [facility] [address] [place] [address] * Hepatitis C Antibody, with Reflex (11/05/2013 10:13 AM CDT) Hepatitis C Antibody Non-React Non-Reacti ve HP CONVERSION 11/05/2013 10:1 3 AM CDT 11/05/2013 12:29 PM CDT Alexsander Quick MD LAB_1 Final Result Performing Organization Address [facility] de Phone Number HP CONVERSION * (ABNORMAL) [...] 3:42 PM CDT Gary Foreman MD LAB_1 Final Resul t Performing Organization Address [facility] Co de Phone Number HP CONVERSION from Last 3 Months or Most Recently Relevant to Health Maintenance Insurance BCBS OUT OF STATE Care Teams Forestry Scientist Relationship Specialty Start Date End Date Gary Foreman MD [address] [place] [address] PCP - General 07/12/10
--- OUTSIDE RECORDS SUMMARY | 2024-11-11 11:48 | XMS_ITS | CCD ---
Author Name Interface, [id number] [employer] Address [address] [place] [address] Organization [facility] Address [address] [place] [address] Care Team Providers Care Power Bender Operator Name Role Phone Bennett LUCIA, Aarti Unavailable Unavai lable Allergies and Adverse Reactions Reason for Visit Medications Problems Social History
--- OUTSIDE RECORDS SUMMARY | 2024-11-11 11:48 | XMS_ITS ---
Author Name Interface, [id number] lity Address [address] [place] [address] [address] [place] [address] [facility] On[facility] Address [facility] [address] [place] [address] Allergies and Adverse Reactions Medication/Group Name Reaction [...] us Covid-19 vaccine (Pfizer) Completed Covid-19 vaccine (Tellagence) Completed Medications Date Name Route Dose Frequency Instructions Start Date End Date Status Zafirlukast Oral Bryon e 1 tab by oral route twice daily active Fluticasone-Salmet lora Inhaler 250 mcg-50 mcg/Dose 1 puff by oral route twice daily active Sulfasalazine Oral t pollo 1 tab by mouth once daily active Omeprazole Oral Delayed Release Capsule Take 1 cap by mouth once daily active Famotidine Oral Take 1 tab by oral route PRN active Albuterol HFA Inhaler 90 mcg/actuation active Ibuprofen Oral PRN ac tive Problems Diagnosis Status Date of Diagnosis Resolution Date Melanoma Active 02/11/2020 Vital Signs Date Type Value 09/29/2020 Heart Beat 101.00 09/29/2020 Respiratory Rate 16.00 09/29/2020 Oxygen Saturation 96.00 09/29/2020 Intravascular Systolic 138 09/29/2020 Intravascular Diastolic 86 09/29/2020 BSA 2.24 09/29/2020 Weight 248.20 09/29/2020 Height 68.00 09/29/2020 BMI 37.74 09/29/2020 Pain Scale 0.00
--- OUTSIDE RECORDS SUMMARY | 2024-11-11 11:48 | XMS_ITS | Encounter Summary ---
Author Organization [facility] Address [address] [place] [address] Care Team Providers Care Aircraft Systems Technician Name Role Phone Unavailable Primary Care Provider Unavailabl e Encounter Details Date Type Department Care Team (Late st Contact Info) Description 06/26/2008 Historical Ophthalmology [facility] Gary Wellington M.D. 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 Recheck 3 weeks. CDM Reports - [facility] Id: [id number] Status: Fnl documented in this encounter Plan of Treatment Not on file documented as of this encounter Visit Diagnoses Not on filedocumented in this encounter
--- OUTSIDE RECORDS SUMMARY | 2024-11-11 11:48 | XMS_ITS | Clinical Summary ---
Author Organization [facility] Address [address] [place] [address] Care Team Providers Care Stock Selector Name Role Phone Unavailable Primary Care Provider Unavailabl e Source Comments Patient records contain information from all sites at [facility]. For routine questions regarding patient records, call [phone] during business hours, M-F 8:00 AM - 5:00 PM Central Time. Record requests for emergency care only can be directed to [phone] at any time.[facility] Allergies Active Allergy Reactions Criticality Noted [...] throat windpipe swells Zolpidem Headache 06/26/2008 Medications * This document contains information received from the source organization and may not represent a complete record from that organization. fluticasone propion-salmeteroL 500-50 mcg/dose diskus inhaler Inhale [...] Tobacco: Never Tobacco Cessation:Counseling Given: Not Answered [place] Utilities Answer Date Recorded In the past 12 months has th e electric, gas, oil, or water company threatened to shut off services in your home? Patient declined 06/26/2023 Hunger Vital Sign Answer [...] things needed for daily living? No 06/26/2023 Housing Stability Answer Date Recorded What is your living situation today? I have a [facility] place to live 06/26/2023 Education Answer Date Recorded What is the highest level of school you have completed or the highest degree you have received? Associate degree: academic program 03/09/2020 Sex and Gender Information Value Date Recorded Sex Assigned at Male 08/28/2017 5:25 PM CDT Legal Sex Male 10:09 PM NEON GLASS BENDER Gender Identity Male 08/28/2017 5:25 PM CDT [...] of 3 - 19+ 3-dose series) 1989 COVID-19 Vaccine (4 - 2023- season) 2023 01/18/2021, 07/19/2020, 06/28/2020 Depression Screening (Annual PHQ-2) 04/11/2024 Lipid (Cholesterol) Screening 08/21/2024 08/22/2023, 01/01/2022, 10/23/2020, Additional history exists Influenza Vaccine (#1) 2025 , 12/27/2022, 01/01/2022, Additional history exists Fasting Glucose for Diabetes Screening 08/21/2026 08/22/2023, 07/01/2023, 01/01/2022, Additional history exists Colonoscopy 11/13/2028 11/13/2018 Colorectal [...] APRN, C.N.P. LAB BLOOD ADD-ON Final Result [facility] [address] [place] [address], [place] D[place] [facility] [address] [place] [address] * (ABNORMAL) Lipid Panel (10/29/2016 7:05 AM CDT) Cholesterol, Total 218(H) SeeComment MG/DL [facility] Comment: REFERENCE VALUE Desirable: < 200 Borderline high: 200 - 239 High: > or = 240 Triglycerides 76 SeeComment MG/DL [facility] Comment: REFERENCE VALUE Normal: <150 Borderline high: 150-199 High: 200-499 Very high: > or =500 Cholesterol, Non-HDL, Calculated 163(H) SeeComment MG/DL [facility] Comment: REFERENCE VALUE Desirable: <130 Above Desirable: 130-159 Borderline high: 160-189 High: 190-219 Very high: > or =220 Cholesterol, HDL, S 55 >=40 MG/DL [facility] Calculated LDL 148(H) SeeComment MG/DL [facility] Comment: REFERENCE VALUE Desirable: <100 Above Desirable: 100-129 Borderline high: 130-159 High: 160-189 Very high: > or =190 10/29/2016 7:05 AM CDT 10/29/2016 7:05 AM CDT us Gary Lind M.D. LAB BLOOD ADD-ON Final Res ult [facility] [address] from Last 3 Months or Most Recently Relevant to Health Maintenance Insurance [facility]
--- OUTSIDE RECORDS SUMMARY | 2024-11-11 11:48 | XMS_ITS | Encounter Summary ---
Author Organization [facility] Address [address] [place] [address] Care Team Providers Care Market Superintendent Name Role Phone Unavailable Primary Care Provider Unavailabl e Encounter Details Date Type Department Care Team (Late st Contact Info) Description 12/30/2008 Historical Ophthalmology [facility] Gary Wellington M.D. [address] [place] [phone] Social History Tobacco Use Types Packs/Day Years Used Date Smoking Tobacco: Never Assessed Sex and Gender Information Value Date Recorded Sex Assigned at Male 08/28/2017 5:25 PM CDT Legal Sex Male 10:09 PM TELE RN Gender Identity Male 08/28/2017 5:25 PM CDT [...] left eye CDM Reports - EYEGEN Id: [id number] Status: Fnl documented in this encounter Plan of Treatment Not on file documented as of this encounter Visit Diagnoses Not on filedocumented in this encounter
--- OUTSIDE RECORDS SUMMARY | 2024-11-11 11:48 | XMS_ITS | CCD ---
Author Name Interface, H2Hliwvop lity Address [address] [place] [address] [address] [address] Organization [facility] Address [address] [facility] [address] [address] Care Team Providers Care Pad Machine Offbearer Name Role Phone Bennett LUCIA, Aarti Torres Unavai lable Allergies and Adverse Reactions Medication/Group Name Reaction Severity Date zolpidem 03/03/2020 cefuroxime 09/29/2020 tetracycline 09/29/2020 fluorometholone 09/29/2020 Ambien 09/29/2020 Reason for Visit RC - 6 MOS LT EAR JAMES - 6 MOS LT EAR JAMES Medications Date Name Route Dose Frequency Instructions Start Date End Date Status Ibuprofen Oral PRN ac tive Fluticasone-Salmet lora Inhaler 250 mcg-50 mcg/Dose 1 puff by oral route twice daily active Famotidine Oral Take 1 tab by oral route PRN active Zafirlukast Oral Bryon e 1 tab by oral route twice daily active Albuterol HFA Inhaler 90 mcg/actuation active Sulfasalazine Oral t pollo 1 tab by mouth once daily active Omeprazole Oral Delayed Release Capsule Take 1 cap by mouth once daily active Problems Diagnosis Status Date of Diagnosis Resolution Date Melanoma Active 02/11/2020 Social History Date Name Value 03/03/2020 Sex Male
--- OUTSIDE RECORDS SUMMARY | 2024-11-11 11:48 | XMS_ITS | Encounter Summary ---
Author Organization [facility] Address [address] [place] [address] Care Team Providers Care Drier And Grinder Tender Name Role Phone Unavailable Primary Care Provider Unavailabl e Encounter Details Date Type Department Care Team (Late st Contact Info) Description 03/14/2009 Historical Ophthalmology [facility] Gary Wellington M.D. 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
--- OUTSIDE RECORDS SUMMARY | 2024-11-11 11:48 | XMS_ITS | Encounter Summary ---
Author Organization [facility] Address [address] [place] [address] Care Team Providers Care Executive Administrator Name Role Phone Unavailable Primary Care Provider Unavailabl e Encounter Details Date Type Department Care Team (Late st Contact Info) Description 08/16/2008 Historical Ophthalmology [facility] Gary Wellington M.D. 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
--- OUTSIDE RECORDS SUMMARY | 2024-11-11 11:48 | XMS_ITS | Encounter Summary ---
Author Organization [facility] Address [address] [address] Care Team Providers Care Antique Refinisher Name Role Phone Gary Foreman MD Primary Care Provider [phone]- [phone] Encounter Details Date Type Department Care Team (Late st Contact Info) Description 09/17/2024 Results Follow-Up Rheumatology at [address] [id number] Alexsander Quick MD [facility] [place], [place] [phone] Social History Tobacco Use Types Packs/Day Years [...] 09/18/2025 3:45 PM CDT Appointment Rheumatology at [address] [id number] Alexsander Quick MD [address] [place], [place] [phone] documented as of this encounter Visit Diagnoses Not on filedocumented in this encounter Care Teams Antique Refinisher Relationship Specialty Start Date End Date Gary Foreman MD [address] [place] [address] PCP - General 07/12/10 documented as of this encounter
--- OUTSIDE RECORDS SUMMARY | 2024-11-11 11:48 | XMS_ITS | Encounter Summary ---
Author Organization [facility] Address [address] [place] [address] Care Team Providers Care Powdered Metal Supervisor Name Role Phone Unavailable Primary Care Provider Unavailabl e Encounter Details Date Type Department Care Team (Late st Contact Info) Description 07/11/2009 Historical Ophthalmology [facility] Gary Wellington M.D. 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 I will write his severity of illness coordinator to give him an update on the eye status. He has been getting bloodschecked with him (Dr. Irene at [place]). DIAGNOSIS #1 HLA-B27 positive uveitis left eye CDM Reports - EYEGEN Id: [id number] Status: Fnl documented in this encounter Plan of Treatment Not on file documented as of this encounter Visit Diagnoses Not on filedocumented in this encounter
--- OUTSIDE RECORDS SUMMARY | 2024-11-11 11:48 | XMS_ITS | Encounter Summary ---
Author Organization [facility] Address [address] [place] [address] Care Team Providers Care Senior Electronics Technician Name Role Phone Unavailable Primary Care Provider Unavailabl e Encounter Details Date Type Department Care Team (Late st Contact Info) Description 07/09/2008 Historical Ophthalmology [facility] Gary Wellington M.D. 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
--- OUTSIDE RECORDS SUMMARY | 2024-11-11 11:48 | XMS_ITS | Encounter Summary ---
Author Organization [facility] Address [address] [place] [address] Care Team Providers Care Gravity Prospecting Observer Helper Name Role Phone Unavailable Primary Care Provider Unavailabl e Encounter Details Date Type Department Care Team (Late st Contact Info) Description 10/15/2008 Historical Ophthalmology [facility] Gary Wellington M.D. 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 He will call with his yarn salvager's name and address, I will write him with the suggestion. Continue current Rx. Recheck 1 month CDM Reports - EYEGEN Id: [id number] Status: Fnl documented in this encounter Plan of Treatment Not on file documented as of this encounter Visit Diagnoses Not on filedocumented in this encounter
--- OUTSIDE RECORDS SUMMARY | 2024-11-11 11:48 | XMS_ITS | Encounter Summary ---
Author Organization [facility] Address [address] [place] [address] Care Team Providers Care Terra Cotta Setter Name Role Phone Unavailable Primary Care Provider Unavailabl e Encounter Details Date Type Department Care Team (Late st Contact Info) Description 09/06/2008 Historical Ophthalmology [facility] Gary Wellington M.D. 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
--- OUTSIDE RECORDS SUMMARY | 2024-11-11 11:48 | XMS_ITS | Encounter Summary ---
Author Organization [facility] Address [address] [place] [address] Care Team Providers Care Supply Coordinator Name Role Phone Unavailable Primary Care Provider Unavailabl e Encounter Details Date Type Department Care Team (Late st Contact Info) Description 07/23/2008 Historical Ophthalmology [facility]ST [facility] Gary Wellington M.D. 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
--- OUTSIDE RECORDS SUMMARY | 2024-11-11 11:48 | XMS_ITS | Encounter Summary ---
Author Organization [facility] Address [address] [place] [address] Care Team Providers Care Production Support Consultant Name Role Phone Unavailable Primary Care Provider Unavailabl e Encounter Details Date Type Department Care Team (Late st Contact Info) Description 11/15/2008 Historical Ophthalmology RST O[facility] Gary Wellington M.D. 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 He sees his supreme court judge next week for consideration of methorexate. In the meantime we will continue current Rx, recheck 6 weeks. DIAGNOSIS #1 HLA-B27 positive uveitis left eye CDM Reports - EYEGEN Id: [id number] Status: Fnl documented in this encounter Plan of Treatment Not on file documented as of this encounter Visit Diagnoses Not on filedocumented in this encounter
--- OUTSIDE RECORDS SUMMARY | 2024-11-11 11:48 | XMS_ITS | Encounter Summary ---
Author Organization [facility] Address [address] [place] [address] Care Team Providers Care Director Business Intelligence Name Role Phone Unavailable Primary Care Provider Unavailabl e Encounter Details Date Type Department Care Team (Late st Contact Info) Description 02/04/2009 Historical Ophthalmology RST O[facility] Gary Wellington M.D. 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 CDM Reports - EYEGEN Id: [id number] Status: Fnl documented in this encounter Plan of Treatment Not on file documented as of this encounter Visit Diagnoses Not on filedocumented in this encounter
--- OUTSIDE RECORDS SUMMARY | 2024-11-11 11:48 | XMS_ITS ---
Author Name Interface, [facility] Address [address] [place] [address] [address] [place] [address] [facility] Address [facility] [address] [place] [address] Allergies and Adverse Reactions Medication/Group Name Reaction [...] us Covid-19 vaccine (Pfizer) Completed Covid-19 vaccine (Argo Tea) Completed Medications Date Name Route Dose Frequency [...]
--- OUTSIDE RECORDS SUMMARY | 2024-11-11 11:49 | XMS_ITS | Clinical Summary ---
Author Organization [facility] Address [address] [place] [address] Care Team Providers Care Rail Crew Member Name Role Phone Jon Irene MD Unavailable [phone] Soraida Marion MD Unavailable [phone] Alexsander Quick Unavailable [phone] Cezar Esparza MD Primary Care Provider [...] sprayIndication s:Allergy, unspecified, initial encounter Inhale 1 [place] into both nostrils 2 times daily. For allergies. 3 Each 2 016 Active sulfaSALAzine (AZULFIDINE) 500 mg tabletIndicatio ns:Myalgia Take 1 tablet by mouth 2 times daily. 180 tablet 4 019 Active cetirizine (ZYRTEC) 10 mg tabletIndicatio ns:Allergy, unspecified, initial encounter TAKE 1 TABLET BY MOUTH EVERY DAY 90 tablet 1 019 Active albuterol-iprat ropium (DUONEB) (2.5-0.5 mg) in 3 mL NEBULIZATION solutionIndicat ions:Moderate persistent asthma without complication (HC) INHALE 1 VIAL VIA NEBULIZATION 4 TIMES DAILY NEEDED 90 mL 1 022 Active triamcinolone (ARISTOCORT; KENALOG) 0.1 % cream 022 Active pantoprazole (PROTONIX) 40 mg delayed-release tabletIndicatio ns:Chronic GERD TAKE 1 TABLET(40 MG) BY MOUTH EVERY DAY 90 Tablet 024 Active nystatin (MYCOSTATIN) 100,000 unit/mL suspensionIndic ations:Thrush Swish and swallow 5 mL (500,000 units) by mouth four times daily. 473 mL 024 Active albuterol HFA (PRO-AIR; VENTOLIN; PROVENTIL) 90 mcg/actuation inhalerIndicati ons:Mild persistent asthma without complication (HC) INHALE 1 TO 2 PUFFS BY MOUTH EVERY 4 HOURS NEEDED FOR SHORTNESS OF BREATH 8.5 g 1 025 Active clobetasol 0.05 % cream 025 Active albuterol-iprat ropium (2.5-0.5 mg) in 3 mL NEBULIZATION solution Inhale by mouth. 023 Active mometasone 0.1 % ointmentIndicat ions:Rash and other nonspecific skin eruption Apply topically to affected area(s) once daily. 45 g 1 025 Active clotrimazole 1 % creamIndication s:Rash and other nonspecific skin eruption Apply topically to affected area(s) two times daily. 45 g 1 025 Active albuterol HFA 90 mcg/actuation inhalerIndicati ons:Asthma, unspecified asthma severity, unspecified whether complicated, unspecified whether persistent (HC) Inhale 2 Puffs by mouth 4 times daily if needed for Shortness Of Breath. 1 Each 1 025 Active fluticasone fur-umeclidiniu m-vilanterol (Trelegy Ellipta) 100-62.5-25 mcg inhalerIndicati ons:Asthma, unspecified asthma severity, unspecified whether complicated, unspecified whether persistent (HC) Inhale 1 Puff by mouth once daily. 60 Each 3 025 Active mometasone 0.1 % ointmentIndicat ions:Rash and other nonspecific skin eruption Apply topically to affected area(s) once daily. 45 g 1 025 Active clotrimazole 1 % creamIndication s:Rash and other nonspecific skin eruption Apply topically to affected area(s) two times daily. 45 g 1 025 Active triamcinolone 0.1 % creamIndication s:Chronic eczema APPLY TOPICALLY TO AFFECTED AREAS THREE TIMES DAILY NEEDED 454 g 025 Active zafirlukast 10 mg tabletIndicatio ns:Allergy, unspecified, initial encounter TAKE ONE TABLET BY MOUTH TWICE DAILY AFTER MEALS 180 Tablet 025 Active zafirlukast 10 mg tabletIndicatio ns:Allergy, unspecified, initial encounter Take 1 Tablet (10 mg) by mouth two times daily after meals. 180 Tablet 3 024 2024 Discontinued triamcinolone (ARISTOCORT; KENALOG) 0.1 % creamIndication s:Chronic eczema Apply topically to affected area(s) three times daily. As needed. 453.6 g 1 025 2024 Discontinued triamcinolone 0.1 % creamIndication s:Chronic eczema APPLY TOPICALLY TO AFFECTED AREAS THREE TIMES DAILY NEEDED 454 g 025 2024 Discontinued(R eorder (E-cancel not sent)) Active Problems Problem Noted Date Diagnosed Date [...] Encounters Date Type Department Care Team Description 10/16/2024 Refill [facility] [address] [place] [address] Cezar Esparza MD Refill Request (Zafirlukast) 10/11/2024 Refill [facility] [address] [place] [address] Cezar Esparza MD Refill Request (Triamcinolone) 09/23/2024 Travel 09/19/2024 7:00 AM CDT [place] [facility] [place] [address] [place] [address] Luann Richards MD Derm Problem (6 months on/off itchy rashes /Cortisone cream no relief /Sees Filling Hand they recommended to see provider ) 09/18/2024 Travel 08/20/2024 2:00 PM CDT Office Visit [facility] [address] [place] [address] Petros Huerta, OD Eye Exam (CEE) 08/20/2024 Travel from Last 3 Months Immunizations Immunization Administration Dates Next Due AMB Influenza, IIV3 (Age >=3 years)(Flu Clinic Only) 01/13/2009 AMB Influenza, IIV4 PF (=>6 mos Flulaval,Fluzone Fluarix)(Flu Clinic Only) 01/08/2020 COVID-19 vaccine ([place] NTl[place]ang 30mcg/0.3mL) PF, MDV 07/19/2020,06/28/2020 Hepatitis A (Adult) 03/31/2012,06/27/2002 Hepatitis B (Peds) 01/20/2005,08/19/2004, 005 INFLUENZA, IIV3 PF (AGE >= 6 MO) 01/17/2024 Influenza Virus, Unspecified 12/27/2022, 12/31/2020,01/24/2017,2014,12/24/2013,01/30/2013,12/31/2011,1 04/15/2010,01/13/2009,03/05/2003, 003,01/22/1999,01/22/1999 Influenza, IIV3 (Age 6-35 mos) 02/13/2011 Influenza, IIV3 (Age >=3 years) 01/31/20 13,12/31/2011,02/13/2011,2002 Influenza, IIV4 01/01/2022,,01/10/2019,2017,01/24/2017,12/29/2015,01/20/2015,0 12/11/2013,01/30/2013,12/31/2011, 011,01/13/2009,03/05/2003,04/16/2002, Influenza, IIV4 (=>6mos) MDV 12/31/2020,01/25/20 17 Influenza,CCIIV4 [...] Answer Date Recorded PHQ-2 TOTAL SCORE 0 09/19/2024 Social Connections Answer Date Recorded Do you [...] on file Legal Sex Male 5:16 AM 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 Gender Identity Not on file Sexual Orientation Not on file Occupation Industry Job Start Date Job End Date [employer] Not on file Not on file Not on fi le Not on file Not on file Not on file Not on file Obstetrics History Last Filed Vital Signs Vital Sign Reading Time Taken Comments Blood Pressure 132/82 09/19/2024 7:10 AM CDT Pulse 100 09/19/2024 7:10 AM CDT Temperature 36.8 C (98.2 F) 05/14/2024 8:53 AM 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 Respiratory Rate 18 03/09/2024 8:38 AM 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 Oxygen Saturation 97% 09/19/2024 7:10 AM CDT Inhaled Oxygen Concentration - - Weight 110.5 kg (243 lb 8 oz) 09/19/2024 7:10 AM CDT Height 170.2 cm (5' 7) 02/28/2024 9:53 AM 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 Body Mass Index 38.14 02/28/2024 9:53 AM 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 Plan of Treatment Health Maintenance Due Date Last Done Comments HIV for age 15-65 1985 Hepatitis B series for 19+ ( 1 of 3 - 19+ 3-dose series) 1989 01/20/2005, 08/19/2004, 07/08/2004 COVID-19 vaccine series ( season) 2023 01/18/2021, 07/19/2020, 06/28/2020 Influenza Vaccine (#1) 2024 , 12/27/2022, 12/27/2022, Additional history exists BMI (ht and wt on same day) for age 18+ 02/27/2025 02/28/2024, 08/31/2023, 08/22/2023, Additional history exists Depression screening for age 12+ 09/19/2025 09/19/2024, 08/22/2023, 08/10/2023, Additional history exists Lipids for age 45-75 08/21/2028 08/22/2023, 01/01/2022, 10/23/2020, Additional history exists Colonoscopy through age 75 11/13/202811/13, 11/13/2018, 11/13/2018, Additional history exists Tetanus booster 09/13/2031 09/12/2021, 12/11, 01/03/2012, Additional history exists Hepatitis C screening for ag e 18-79 [...] - 199 mg/dL 08/22/2023 6:31 PM CDT [facility] Comment: Cholesterol, Total Reference Ranges Desirable <200 mg/dL Borderline 200-239 mg/dL High >=240 mg/dL TRIGLYCERIDES 70 <150 mg/dL 08/22/2023 6:31 PM CDT [facility] HDL CHOLESTEROL 62 >40 mg/dL 6:31 PM CDT [facility] NON-HDL CHOLESTEROL 184(H) <145 mg/dl 08/22/2023 6:31 PM CDT [facility] CHOL/HDL RATIO 3.97 <4.50 08/22/2023 6:31 PM CDT [facility] LDL CHOLESTEROL 170(H) <=130 mg/dL 08/22/2023 6:31 PM CDT [facility] VLDL CHOLESTEROL 14 <=30 mg/dL 08/22/2023 6:31 PM CDT [facility] PROVIDER ORDERED STATUS RANDOM 08/22/2023 6:31 PM CDT [facility] Blood BLOOD SPECIMEN / Unknown Venipuncture / Unknown 08/22/2023 9:25 AM CDT 08/22/2023 9:25 AM CDT us Maranda Borja MD CHEMISTRY Final Resul t [facility] [address] [place] [address], * ANTI HCV (01/01/2022 8:55 AM CDT) HEPATITIS C ANTIBODY Non-React jesenia Non-React jesenia 01/02/2022 5:36 AM CDT [facility] Comment:Antibodies to HCV no t detected; does not exclude the possibility of exposure to HCV. Blood BLOOD SPECIMEN / Unknown Venipuncture / Unknown 01/01/2022 8:55 AM CDT 01/01/2022 8:56 AM CDT us Antonieta Stern DO SEND OUTS Final Result [facility] [address] [place] [address], * COLONOSCOPY SCREENING (11/13/2018 12:00 PM CDT) us Nura Caban MD GI PROCEDURE ORD Final Res ult from Last 3 Months or Most Recently Relevant to Health Maintenance Insurance [facility] [place] [facility] [employer]IC[employer] INS [facility] Advance Directives * Full Code (Latest Code [...] 7:11 AM 08/20/2011 2:05 AM Care Teams Rail Crew Member Relationship Specialty Start Date End Date Cezar Esparza MD [address] [place] [address] PCP - General Family Practice 01/10/19 Jon Irene MD [address] [place], [place] [id number] Rheumatology 03/01/11 Soraida Marion MD [address] [place] [address] Pulmonology Pulmonary Medicine 04/09/14 Alexsander Quick [address] [place] [address] Rheumatology Rheumatology 06/06/14
--- NOTE | 2024-11-11 11:55 | CRLHL7_ITS ---
For Patients: As a result of the Century Cures Act, medical imaging exams and procedure reports are released immediately into your electronic medical record. You may view this report before your referring provider. If you have questions, please contact your health care provider. INDICATION: 54-year-old male with episode of brain fog, word-finding difficulty. TECHNIQUE: CT head without contrast. COMPARISON: None FINDINGS: CSF spaces: Within normal limits for age. No fluid collections. Ventricles: Commensurate with sulci. No Hydrocephalus. Brain parenchyma: No mass lesion, hemorrhage, or acute infarction. The schmidt-white differentiation is normal. Midline Structures: Normal. No shift. Orbits: Normal. Vessels: Atherosclerotic calcifications. Paranasal sinuses: Minor scattered mucosal thickening. Mastoid sinuses: Normal. Skull base and calvarium: No fractures or significant abnormalities. IMPRESSION: No acute intracranial abnormalities. Please note that all CT scans at this facility use dose modulation, iterative reconstruction, and/or weight-based dosing when appropriate to reduce radiation dose to as low as reasonably achievable. Dictated by Rocael Schmitt MD @ 11/11/2024 12:17:03 PM (Electronically Signed)
--- NOTE | 2024-11-11 11:58 | ED.GENADULT ---
HPI - General Adult General Chief complaint: Neuro Symptoms/Altered Deficit Stated complaint: Possible Stroke Time Seen by Provider: 11/11/24 11:55 History of Present Illness HPI narrative: Pt reports headache throughout the day today, was out shopping, then suddenly around 1115 hours had episode where he blanked, couldn't find words, couldn't speak, dizzy/ lightheaded, disoriented. This lasted approx 1-2 mins . All symptoms resolved, still has mild 1/10 headache. A&Ox4 in triage, all neuros intact. 54-year-old man presenting to the emergency department following an episode where suddenly was blank and could not speak feeling disoriented, not moving. Had been grocery shopping with spouse. She had asked him some questions and then turned to Pranay when he did not respond. She is urged him just standing there blankly and then he began to cry. Entire episode lasted about a minute; probably much last. Has had a headache during the day. Gets occasional headaches. This is not a severe headache located in the left frontal/forehead. He remembers thinking that something was wrong. Had been feeling maybe a little lightheaded before and maybe that his heart was racing but he says he did not think anything of it because it is not necessarily unusual and was diagnosed with unspecified tachycardia. Did not lose bowel or bladder control. Was not noted to be moving strangely. After this event was otherwise normal; not foggy. Related Data Home Medications ?Medication ?Instructions ?Recorded ?Confirmed albuterol sulfate 90 mcg/actuation 1 inh inhalation ONCE 11/06/21 11/11/24 aerosol inhaler cetirizine 10 mg capsule (All Day 10 mg PO QDAY PRN 11/06/21 11/11/24 Allergy (cetirizine)) fluticasone 250 mcg-salmeterol 50 1 inh inhalation BID 11/06/21 04/09/24 mcg/dose blistr powdr for inhalation (Advair Diskus) omeprazole 20 mg capsule,delayed 20 mg PO QDAY 11/06/21 04/09/24 release sulfasalazine 500 mg tablet 0.5 g PO QDAY 11/06/21 11/11/24 zafirlukast 10 mg tablet 20 mg PO BID 11/06/21 11/11/24 ipratropium 0.5 mg-albuterol 3 mg 3 ml inhalation Q6H PRN 09/08/22 11/11/24 (2.5 mg base)/3 mL nebulization soln fluconazole 200 mg tablet 200 mg PO DAILY 02/26/23 04/09/24 fluticasone fur. 100 mcg-umeclid 1 ea inhalation DAILY 11/11/24 11/11/24 62.5 mcg-vilant 25 mcg inhalat.powder (Trelegy Ellipta) Previous Rx's ?Medication ?Instructions ?Recorded nystatin 100,000 unit/mL oral 5 ml PO QID #200 mL 11/06/21 suspension ondansetron HCl 4 mg tablet 4 mg PO Q6H #20 tabs 08/30/22 pantoprazole 40 mg tablet,delayed 40 mg PO DAILY #20 tabs 08/30/22 release (Protonix) hydrocortisone 2.5 % topical cream 1 applic topical BID PRN rash #20 04/09/24 grams Allergies Allergy/AdvReac Type Severity Reaction Status Date / Time zolpidem Allergy Severe Verified 04/09/24 13:01 cefuroxime Allergy Intermediate Diarrhea Verified 04/09/24 13:01 fluorometholone Allergy Intermediate Diarrhea Verified 04/09/24 13:01 banana Allergy Mild Verified 04/09/24 13:01 clavulanic acid Allergy Mild Verified 04/09/24 13:01 tetracycline Allergy Mild Verified 04/09/24 13:01 dragon fruit Allergy Verified 11/11/24 11:54 kiwi Allergy Verified 11/11/24 11:54 Review of Systems Status of ROS: Reports: 6 or more systems reviewed and unremarkable except as noted in History and below [facility] Medical History Sore throat ?J02.9 - Acute pharyngitis, unspecified (ICD-10) Social History Smoking Status: Never smoker Do you use any of these nicotine containing products: None Second hand tobacco smoke exposure: No How often do you have a drink containing alcohol: monthly or less How many standard drinks containing alcohol do you have on a typical day: 1 or 2 How often do you have six or more drinks on one occasion: Never AUDIT-C Alcohol total score: 1 Non-prescribed substance use: denies use service: No Exam Narrative: Exam Narrative: Pleasant. Breathing easily. NAD. Cranial nerves 2-12 intact. No nystagmus. Extraocular movements are full. Head is atraumatic. Heart in regular rate and rhythm without murmur rub or gallop. Lungs are clear. Moving all extremities fluidly without difficulty good strength and lower extremities without edema. Normal point point. Normal heel to sapp. Is fully oriented. Becomes tearful during recounting of events. Const: Vital Signs, click to edit/add: Vital Signs - 24 hr 11/11/24 11:50 11/11/24 12:08 11/11/24 12:25 Temperature 98.2 F Pulse Rate 73 Pulse Rate [Pulse Oximeter] 76 Respiratory Rate 16 19 Blood Pressure Blood Pressure [Le ft Upper Arm] 165/99 H Pulse Oximetry 97 95 94 Oxygen Delivery Me thod Room Air 11/11/24 12:30 11/11/24 12:45 11/11/24 13:00 Temperature Pulse Rate 77 78 Pulse Rate [Pulse Oximeter] Respiratory Rate 17 18 39 H Blood Pressure Blood Pressure [Le ft Upper Arm] Pulse Oximetry 94 95 Oxygen Delivery Me thod 11/11/24 13:21 11/11/24 13:30 11/11/24 13:36 Temperature Pulse Rate 74 69 76 Pulse Rate [Pulse Oximeter] Respiratory Rate 18 Blood Pressure 133/88 Blood Pressure [Le ft Upper Arm] Pulse Oximetry 98 96 96 Oxygen Delivery Me thod Room Air 11/11/24 13:45 11/11/24 14:00 Temperature Pulse Rate 72 72 Pulse Rate [Pulse Oximeter] Respiratory Rate 14 Blood Pressure Blood Pressure [Le ft Upper Arm] Pulse Oximetry 98 100 Oxygen Delivery Me thod Documenting provider has reviewed patient's vital signs: yes Course Vital Signs Vital signs: Initial Vital Signs Temperature 98.2 F 11/11/24 11:50 Temperature Source Temporal Artery Scan 11/11/24 11:50 Pulse Rate 76 11/11/24 11:50 Respiratory Rate 16 11/11/24 11:50 Blood Pressure 165/99 H 11/11/24 11:50 Blood Pressure Mean 121 H 11/11/24 11:50 Blood Pressure Position Supine 11/11/24 11:50 Pulse Oximetry 97 11/11/24 11:50 Oxygen Delivery Method Room Air 11/11/24 11:50 Vital Signs Temperature 98.2 F 11/11/24 11:50 Pulse Rate 76 11/11/24 11:50 Respiratory Rate 16 11/11/24 11:50 Blood Pressure 165/99 H 11/11/24 11:50 Pulse Oximetry 97 11/11/24 11:50 Oxygen Delivery Method Room Air 11/11/24 11:50 Temperature 98.2 F 11/11/24 11:50 Pulse Rate 72 11/11/24 14:00 Respiratory Rate 14 11/11/24 14:00 Blood Pressure 133/88 11/11/24 13:36 Pulse Oximetry 100 11/11/24 14:00 Oxygen Delivery Method Room Air 11/11/24 13:36 Medications Administered Medications: Discontinued Medications Generic Name Dose Route Start Last Admin Trade Name Rick PRN Reason Stop Dose Admin Sodium Chloride 500 mls @ 500 mls/hr 11/11/24 13:05 11/11/24 14:16 0.9 % Sodium Chloride 500 Ml IV 11/11/24 14:04 Infused .Q1H ONE Infusion Medical Decision Making MDM Narrative Medical decision making narrative: This appears to be a quite brief episode for seizure. He does not appear to be postictal. No CVA even for TIA seems brief. Hypoperfusion event in the setting of tachycardia or near vasovagal episode? Headache related? Standard labs and monitor on hall monitor. I did send shortly to noncontrast head CT with concern of potential bleed. Symptoms not persistent over time to suggest a more indolent process. CT head independently reviewed by me looks to be unremarkable for acute abnormality. Also no notable asymmetry INDICATION: 54-year-old male with episode of brain fog, word-finding difficulty. TECHNIQUE: CT head without contrast. COMPARISON: None FINDINGS: CSF spaces: Within normal limits for age. No fluid collections. Ventricles: Commensurate with sulci. No Hydrocephalus. Brain parenchyma: No mass lesion, hemorrhage, or acute infarction. The schmidt-white differentiation is normal. Midline Structures: Normal. No shift. Orbits: Normal. Vessels: Atherosclerotic calcifications. Paranasal sinuses: Minor scattered mucosal thickening. Mastoid sinuses: Normal. Skull base and calvarium: No fractures or significant abnormalities. IMPRESSION: No acute intracranial abnormalities. Please note that all CT scans at this facility use dose modulation, iterative reconstruction, and/or weight-based dosing when appropriate to reduce radiation dose to as low as reasonably achievable. Dictated by Rocael Schmitt MD @ 11/11/2024 12:17:03 PM I did discuss this case with Stroke Neuro on-call. Suspect but will not result in any findings but that might be a good idea to proceed with CT angio of head and neck. CT ANGIOGRAM HEAD DATE: 11/11/2024 CLINICAL HISTORY: Patient with altered mental status. TECHNIQUE: Standard helical CT image acquisition through the intracranial circulation following intravenous administration of contrast material with bolus tracking. 2D and 3D MIP images for post-processing were performed and interpreted on an independent workstation and 3D images were permanently archived. COMPARISON: CT same day. FINDINGS: There is no proximal intracranial large vessel occlusion. There is no intracranial aneurysm. The right internal carotid artery is normal. The right middle cerebral artery and its branches are normal. The right anterior cerebral artery and its branches are normal. The left internal carotid artery is normal. The left middle cerebral artery and its branches are normal. The left anterior cerebral artery and its branches are normal. The anterior communicating artery is well visualized and appears normal. The right vertebral artery and PICA are normal. The left vertebral artery and PICA are normal. The left vertebral artery is dominant. The basilar artery is patent, demonstrating a tortuous appearance without aneurysmal dilatation. The right posterior cerebral artery is normal. The left posterior cerebral artery is normal. The visualized venous structures are patent. IMPRESSION: Patent proximal intracranial vasculature without intracranial aneurysms. Please note that all CT scans at this facility use dose modulation, iterative reconstruction, and/or weight-based dosing when appropriate to reduce radiation dose to as low as reasonably achievable. Dictated by: Vega Mackay MD @ 11/11/2024 13:38:50 CT ANGIOGRAM NECK DATE: 11/11/2024 CLINICAL HISTORY: Patient with altered mental status. TECHNIQUE: Standard helical CT image acquisition of the neck up to the skull base after bolus intravenous contrast enhancement. 2D and 3D MIP images for post-processing were performed and interpreted on an independent workstation and 3D images were permanently archived. COMPARISON: CT same day. FINDINGS: The origins of the great vessels from the aortic arch are patent. The origin of the right vertebral artery is patent. The origin of the left vertebral artery is patent. The common carotid arteries are patent. There is no stenosis at the origin of the right internal carotid artery. There is no stenosis at the origin of the left internal carotid artery. The rest of the cervical segments of the internal carotid arteries are patent up to the skull base. The left vertebral artery is dominant. The cervical segments of the vertebral arteries are patent up to the skull base. The visualized lung apices are unremarkable. The thyroid gland is unremarkable. The soft tissues of the neck are unremarkable. There are degenerative changes in the cervical spine. IMPRESSION: Patent cervical vasculature. Please note that all CT scans at this facility use dose modulation, iterative reconstruction, and/or weight-based dosing when appropriate to reduce radiation dose to as low as reasonably achievable. Dictated by: Vega Mackay MD @ 11/11/2024 13:35:50 In labs, CRP mildly elevated of uncertain significance. No further events during time in the emergency department. I did review vascular studies with Stroke Neuro as well. Further recommendations at this time. See patient discharge plan for further discussion It is hard to say what happened as it is quite difficult to quantify. Your imaging is reassuring. I am happy, relieved you're feeling better. Stay well-hydrated. Be seen for repeat occurrence. Consider follow-up in primary care to discuss if they feel that any further evaluation is necessary. Medical Records Medical records reviewed: Yes I reviewed the patient's medical records Lab Data Lab results reviewed: Yes I reviewed the patient's lab results Labs: Lab Results 11/11/24 11/11/24 Range/Units 12:20 12:25 WBC 6.35 (4.50-11.00) K/uL RBC 4.93 (4.30-5.90) m/uL Hgb 14.5 (13.5-17.5) gm/dL Hct 43.7 (37.0-53.0) % MCV 89 (80-100) fL MCH 29 (26-34) pg MCHC 33 (32-36) gm/dL RDW Coeff of José Miguel 13.2 (11.5-15.5) % Plt Count 291 (140-440) K/uL Neut % (Auto) 53.0 (42.0-72.0) % Lymph % (Auto) 30.7 (20-44) % [place] % (Auto) 12.9 H (0.0-11.0) % Eos % (Auto) 2.5 (0.0-7.0) % Baso % (Auto) 0.6 (0.0-3.0) % Neut # (Auto) 3.36 (1.7-7.0) K/uL Lymph # (Auto) 1.95 (0.90-2.90) K/uL [place] # (Auto) 0.80 (0.00-0.90) K/UL Eos # (Auto) 0.16 (0.00-0.50) K/uL Baso # (Auto) 0.04 (0.00-0.30) K/uL Abs Immat Gran (auto) 0.02 (0.00-0.30) K/uL Imm/Tot Granulo (auto) 0.3 % Sodium 136 (135-149) mmol/L Potassium 4.0 (3.6-5.1) mmol/L Chloride 103 (96-114) mmol/L Carbon Dioxide 28 (20-32) mmol/L Anion Gap 5 L (7-15) mEq/L BUN 10 (7-30) mg/dL Creatinine 0.9 (0.5-1.5) mg/dL Estimated Creat Clear 90.78 Estimated GFR 101 ml/min Glucose 86 (60-115) mg/dL Lactate 0.9 (0.5-1.9) mmol/L Calcium 9.2 (8.4-10.6) mg/dL Troponin I < 0.01 (0.01-0.04) ng/mL C-Reactive Protein 1.5 H (0.5-1.0) mg/dL POC Troponin I 0.00 L (0.01-0.04) ng/ml ECG Data Attestation: I personally reviewed and interpreted this ECG as follows: (Normal sinus rhythm. Without ischemic changes. Rate of 70.) Discharge Plan Discharge Clinical Impression: Altered mental status Patient Disposition: Home w/ Parent or Adult Condition: Improved Additional Instructions: It is hard to say what happened as it is quite difficult to quantify. Your imaging is reassuring. I am happy, relieved you're feeling better. Stay well-hydrated. Be seen for repeat occurrence. Consider follow-up in primary care to discuss if they feel that any further evaluation is necessary. Prescriptions: No Action fluticasone propion-salmeterol [Advair Diskus] 250-50 mcg/dose blister with device 1 inh inhalation BID zafirlukast 10 mg tablet 20 mg PO BID Rx Instructions: must be taken on empty stomach, at least 1 hr before or 2 hrs after a meal/food sulfasalazine 500 mg tablet 0.5 g PO QDAY Rx Instructions: give with food (meal/snack) albuterol sulfate 90 mcg/actuation HFA aerosol inhaler 1 inh inhalation ONCE omeprazole 20 mg capsule,delayed release(DR/EC) 20 mg PO QDAY All Day Allergy (cetirizine) 10 mg capsule 10 mg PO QDAY PRN nystatin 100,000 unit/mL suspension 5 ml PO QID Qty: 200 1RF Rx Instructions: swish and swallow fluconazole 200 mg tablet 200 mg PO DAILY ipratropium-albuterol 0.5 mg-3 mg(2.5 mg base)/3 mL solution for nebulization 3 ml inhalation Q6H PRN hydrocortisone 2.5 % cream 1 applic topical BID PRN (Reason: rash) Qty: 20 0RF Trelegy Ellipta 100-62.5-25 mcg blister with device 1 ea INHALATION DAILY ondansetron HCl 4 mg tablet 4 mg PO Q6H Qty: 20 0RF pantoprazole [Protonix] 40 mg tablet,delayed release (DR/EC) 40 mg PO DAILY Qty: 20 2RF Follow Up/Referrals: Cezar Esparza MD [Primary Care Provider, Family Practice] Stand Alone Forms: [facility] Info Instructions
--- OUTSIDE RECORDS SUMMARY | 2024-11-11 12:18 | XMS_ITS ---
Author Name Interface, [id number] lity Address [address] [place] [address] [address] [place] [address] [facility] Address [facility] [address] [place] [address] Allergies and Adverse Reactions Medication/Group Name Reaction [...] us Covid-19 vaccine (Pfizer) Completed Covid-19 vaccine (Qriket) Completed Medications Date Name Route Dose Frequency [...]
--- OUTSIDE RECORDS SUMMARY | 2024-11-11 12:18 | XMS_ITS | CCD ---
Author Name Interface, [id number] lity Address [address] [place] [address] [address] [address] Organization [facility] Address [address] [facility] [address] [address] Care Team Providers Care Front Office Help Name Role Phone Bennett LUCIA, Aarti Torres Unavai lable Allergies and Adverse Reactions Medication/Group Name Reaction Severity Date zolpidem 03/03/2020 cefuroxime 09/29/2020 fluorometholone 09/29/2020 Ambien 09/29/2020 tetracycline 09/29/2020 Reason for Visit RC - 6 [...]
--- OUTSIDE RECORDS SUMMARY | 2024-11-11 12:18 | XMS_ITS | CCD ---
Author Name Interface, [id number] lity Address [address] [place] [address] [address] [address] Organization [facility] Address [address] [facility] [address] [address] Care Team Providers Care Ross Carrier Driver Name Role Phone Bennett LUCIA, Aarti Torres [...]
--- OUTSIDE RECORDS SUMMARY | 2024-11-11 12:18 | XMS_ITS ---
Author Name Interface, [id number] lity Address [address] [place] [address] Oncology Address [address] [place] [address] Allergies and Adverse Reactions Plan Reason for Visit Encounters Immunizations Medications Problems Vital Signs
[2024-11-11 12:31] LABS: Hematocrit 43.7 % (37.0-53.0); Hemoglobin* 14.5 gm/dL (13.5-17.5); Immature Granulocytes Abs Auto 0.02 K/uL (0.00-0.30); Immature Granulocytes Pct Auto 0.3 %; Lactate* 0.9 mmol/L (0.5-1.9); Lymphocytes Absolute Auto 1.95 K/uL (0.90-2.90); Mean Corpuscular HGB Conc 33 gm/dL (32-36); Mean Corpuscular Hemoglobin 29 pg (26-34); Mean Corpuscular Volume 89 fL (80-100); RDW Coefficient of Variation % 13.2 % (11.5-15.5); Red Blood Count 4.93 m/uL (4.30-5.90); White Blood Count* 6.35 K/uL (4.50-11.00)
[2024-11-11 12:38] LABS: Troponin, Point-of-Care* 0.00 ng/ml (0.01-0.04)
[2024-11-11 12:40] LABS: Slide Review Reflex No
[2024-11-11 12:52] LABS: Chloride* 103 mmol/L (96-114)
[2024-11-11 12:53] LABS: Potassium* 4.0 mmol/L (3.6-5.1); Sodium* 136 mmol/L (135-149)
[2024-11-11 12:55] LABS: Blood Urea Nitrogen* 10 mg/dL (7-30); Creatinine* 0.9 mg/dL (0.5-1.5); Est. Creatinine Clearance* 90.78; Estimated Glomerular Filt Rate 101 ml/min
[2024-11-11 12:56] LABS: Anion Gap 5 mEq/L (7-15); Calcium* 9.2 mg/dL (8.4-10.6); Carbon Dioxide* 28 mmol/L (20-32); Glucose* 86 mg/dL (60-115)
--- NOTE | 2024-11-11 13:04 | CRLHL7_ITS ---
For Patients: As a result of the Cures Act, medical imaging exams and procedure reports are released immediately into your electronic medical record. You may view this report before your referring provider. If you have questions, please contact your health care provider. CT ANGIOGRAM NECK DATE: 11/11/2024 CLINICAL HISTORY: Patient with altered mental status. TECHNIQUE: Standard helical CT image acquisition of the neck up to the skull base after bolus intravenous contrast enhancement. 2D and 3D MIP images for post-processing were performed and interpreted on an independent workstation and 3D images were permanently archived. COMPARISON: CT same day. FINDINGS: The origins of the great vessels from the aortic arch are patent. The origin of the right vertebral artery is patent. The origin of the left vertebral artery is patent. The common carotid arteries are patent. There is no stenosis at the origin of the right internal carotid artery. There is no stenosis at the origin of the left internal carotid artery. The rest of the cervical segments of the internal carotid arteries are patent up to the skull base. The left vertebral artery is dominant. The cervical segments of the vertebral arteries are patent up to the skull base. The visualized lung apices are unremarkable. The thyroid gland is unremarkable. The soft tissues of the neck are unremarkable. There are degenerative changes in the cervical spine. IMPRESSION: Patent cervical vasculature. Please note that all CT scans at this facility use dose modulation, iterative reconstruction, and/or weight-based dosing when appropriate to reduce radiation dose to as low as reasonably achievable. Dictated by: Vega Mackay MD @ 11/11/2024 13:35:50 (Electronically Signed)
--- NOTE | 2024-11-11 13:04 | CRLHL7_ITS ---
For Patients: As a result of the Century Cures Act, medical imaging exams and procedure reports are released immediately into your electronic medical record. You may view this report before your referring provider. If you have questions, please contact your health care provider. CT ANGIOGRAM HEAD DATE: 11/11/2024 CLINICAL HISTORY: Patient with altered mental status. TECHNIQUE: Standard helical CT image acquisition through the intracranial circulation following intravenous administration of contrast material with bolus tracking. 2D and 3D MIP images for post-processing were performed and interpreted on an independent workstation and 3D images were permanently archived. COMPARISON: CT same day. FINDINGS: There is no proximal intracranial large vessel occlusion. There is no intracranial aneurysm. The right internal carotid artery is normal. The right middle cerebral artery and its branches are normal. The right anterior cerebral artery and its branches are normal. The left internal carotid artery is normal. The left middle cerebral artery and its branches are normal. The left anterior cerebral artery and its branches are normal. The anterior communicating artery is well visualized and appears normal. The right vertebral artery and PICA are normal. The left vertebral artery and PICA are normal. The left vertebral artery is dominant. The basilar artery is patent, demonstrating a tortuous appearance without aneurysmal dilatation. The right posterior cerebral artery is normal. The left posterior cerebral artery is normal. The visualized venous structures are patent. IMPRESSION: Patent proximal intracranial vasculature without intracranial aneurysms. Please note that all CT scans at this facility use dose modulation, iterative reconstruction, and/or weight-based dosing when appropriate to reduce radiation dose to as low as reasonably achievable. Dictated by: Vega Mackay MD @ 11/11/2024 13:38:50 (Electronically Signed)
[2024-11-11] MEDS: 0.9 % SODIUM CHLORIDE 500 ML 500 ML IV (13:30)
== END 2024-11-11 14:17 | disposition home or self-care (01) ==
PROVIDERS: Emergency Provider Family Medicine; PCP Family Medicine
DX: R41.82 Altered mental status, unspecified (principal)
CPT/HCPCS: 36415; 70450; 70496; 70498; 80048; 83605; 84484; 85025; 86140; 93005; 94761; 99284; 99285; J7030; Q9967

== ENCOUNTER 2024-11-29 04:24 | Emergency (ER) | payer OTHER, SELFPAY ==
--- OUTSIDE RECORDS SUMMARY | 2024-11-29 04:26 | XMS_ITS | Clinical Summary ---
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
--- OUTSIDE RECORDS SUMMARY | 2024-11-29 04:27 | XMS_ITS ---
Author Name Interface, [id number] lity Address [address] [place] [address] [address] [place] [address] [facility] Address [facility] [address] [place] [address] Allergies and Adverse Reactions Medication/Group Name Reaction Severity Date zolpidem 03/03/2020 cefuroxime 09/29/2020 tetracycline 09/29/2020 fluorometholone 09/29/2020 Ambien 09/29/2020 Plan Date Type Value 09/29/2020 APPOINTMENT RC - 6 MOS LT EA R JAMES - 6 MOS LT EAR JAMES Reason for Visit RC - 6 MOS LT EAR JAMES - 6 MOS LT EAR JAMES Encounters Date Name 09/29/2020 Melanoma Immunizations Date Name Route Dose Instructions Refusal Reason Stat us Covid-19 vaccine (Pfizer) Completed Covid-19 vaccine ([employer]ics) Completed Medications Date Name Route Dose Frequency [...]
--- OUTSIDE RECORDS SUMMARY | 2024-11-29 04:27 | XMS_ITS | Encounter Summary ---
Author Organization [facility] Address [address] [place] [address] Care Team Providers Care Agency Cashier Name Role Phone Unavailable Primary Care Provider Unavailabl e Encounter Details Date Type Department Care Team (Late st Contact Info) Description 07/09/2008 Historical Ophthalmology [facility] Gary Wellington M.D. 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
--- OUTSIDE RECORDS SUMMARY | 2024-11-29 04:27 | XMS_ITS | Patient Health Record ---
Author Organization [facility] Address [address] [place] [address] [address] [place] [address] Care Team Providers Care Director Of Assessing Name Role Phone No Primary, Care Primary Care Provider Unavailab Jon Hernandez Unavailable [phone] Carole Stern DO Unavailable Unavailable Allergies No Known Allergies Reason [...] W/U Status Risk Notes Problem Tension-type headache (302193786) Tension-type headache, unspecified, not intractable (G44.209) Active confirmed Problem Backache (057411136) Dorsalgia, unspecified (M54.9) Active confirmed Problem Segmental and somatic dysfunction (355951331) Segmental and somatic dysfunction of cervical region (M99.01) Active confirmed Problem Neck pain (93555284) Neck pain (M54.2) Active confirmed Plan Of Treatment No Information Insurance Providers Payer Name Payer Address Payer Phone Subscriber Number Group Number Insured Name Patient Relationship to Insured Coverage Start Date Coverage End Date [place] [address] [address] [place] [address] [id number] Susana Hoff Spouse - patient is the spouse of the insured 1 Medical (General) History Medical History History ICD Code General Past Medical History : Asthma,Stomach Ulcers,Arthritis,Headaches,Cancer,Acid Reflux,Sleep Apnea Surgical History Surgery Date(Month/Year) Left ear removal melanoma 03/30 Gallbladder 10/28
--- OUTSIDE RECORDS SUMMARY | 2024-11-29 04:27 | XMS_ITS | Encounter Summary ---
Author Organization [facility] Address [address] [place] [address] Care Team Providers Care Dance Choreographer Name Role Phone Unavailable Primary Care Provider Unavailabl e Encounter Details Date Type Department Care Team (Late st Contact Info) Description 12/30/2008 Historical Ophthalmology RST OPH Gary Wellington M.D. 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
--- OUTSIDE RECORDS SUMMARY | 2024-11-29 04:27 | XMS_ITS | Encounter Summary ---
Author Organization [facility] Address [address], [place] [address] Care Team Providers Care Assistant Designer Name Role Phone Gary Foreman MD Primary Care Provider [phone] Encounter Details Date Type Department Care Team (Late st Contact Info) Description 09/17/2024 Results Follow-Up Rheumatology at [address] [address] Alexsander Quick MD [facility] [place], [place] [id number] Social History Tobacco Use Types Packs/Day Years [...] 09/18/2025 3:45 PM CDT Appointment Rheumatology at [address] [id number] Alexsander Quick MD [address] [place], [place] [id number] documented as of this encounter Visit Diagnoses Not on filedocumented in this encounter Care Teams Assistant Designer Relationship Specialty Start Date End Date Gary Foreman MD [address] [place] [address] PCP - General 07/12/10 documented as of this encounter
--- OUTSIDE RECORDS SUMMARY | 2024-11-29 04:27 | XMS_ITS | Clinical Summary ---
Author Organization [employer] Address [address], [place] [address] Care Team Providers Care Technical Services Assistant Name Role Phone Gary Foreman MD Primary Care Provider [phone] Source Comments You are receiving this document as you are listed as the primary care provider,follow-up provider, or the patient has been referred to you for consultation.This is in compliance with the Medicare and[facility] EHR Incentive Program,which states Providers who transition their patient to another setting of careor provider of care or refers their patient to another provider of care shouldprovide summary care record for each transition of care or referral. [employer] Allergies Active Allergy Reactions Criticality Noted Date [...] (AKA RHINOCORT) 32 MCG/ACT nasal spray 1 [place] by Nasal route daily. 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 08/04/2015 Fatty liver 08/04/2015 [...] Description 09/17/2024 8:50 AM CDT Lab Visit [facility] [address] [place] [address] Encounter for long-term (current) use of medications; Rash and nonspecific skin eruption 09/17/2024 8:15 AM CDT Office Visit Rheumatology at [facility] [place] [address] [place] [address] Alexsander Quick MD Iritis (Primary Dx); HLA B27 (HLA B27 positive); Encounter for long-term (current) use of medications; Multiple joint pain; Rash and nonspecific skin eruption; Atopic dermatitis, unspecified type 09/17/2024 Results Follow-Up Rheumatology at [address] [address] Alexsander Quick MD from Last 3 Months Immunizations Immunization Administration Dates Next Due Flu Vac (3+ yrs) 01/30/2013, 2,02/13/2011,2008,03/05/2003,04/16/2002,01/22/1999 Flu Vac Preserv Free (3+yrs) 02/13/2011 Fluzone Qiv Multidose Vial 0 .25 (6-35 Mos) 01/24/2017 HepA Adult (19+ yrs) 03/31/2012,06/27/2002 HepB Ped/Adol (0-18 yrs) 01/20/2005,08/19/2004,0 07/08/2004 Influenza IIV4 (Quadrivalent ) 0.5mL (57981) 01/08/2020,01/10/2019,01/16/2018,2015,01/20/2015,12/24/2013,12/11/2013 Influenza, Unspecified Formulation 12/31/2020,,01/22/1999 MMR 08/15/1998 [...] 36.5 C (97.7 F) 03/02/2021 9:02 AM SURGICAL DENTAL ASSISTANT Respiratory Rate - - Oxygen Saturation - - Inhaled Oxygen Concentration - - Weight 115.2 kg (254 lb) 09/15/2022 3:30 PM CDT Height - - Body Mass Index - - Plan of Treatment Upcoming Encounters Date Type Department Care Team (Late st Contact Info) Description 09/18/2025 3:45 PM CDT Appointment Rheumatology at [facility] [id number] [place] [id number] Alexsander Quick MD [address] [place], [place] [id number] Health Maintenance Due Date Last Done Comments [...] - 484 mg/dL 09/18/2024 12:49 PM CDT [facility] Tissue Transglutaminase Antibody, IgA 0.5 0.0 - 6.9 U/mL 09/18/2024 12:49 PM CDT [facility] Tissue Transglutaminase Antibody, IgA Interpretation Negative Negative 09/18/2024 12:49 PM CDT [facility] Blood Venipuncture / Unknown 09/17/2024 8:36 AM CDT 09/17/2024 8:36 AM CDT Alexsander Quick MD LAB_1 Final Result Performing Organization Address [facility]/ZIP Co de Phone Number [facility] [address] * Creatinine / GFR (09/17/2024 8:36 AM CDT) Creatinine 0.94 0.73 - 1.18 mg/dL 09/17/2024 9:44 AM T [facility] GFR, Estimated >60 >60 mL/min/1.7 3m2 09/17/2024 9:44 AM CDT [facility] Blood Venipuncture / Unknown 09/17/2024 8:36 AM CDT 09/17/2024 8:36 AM CDT Alexsander Quick MD LAB_1 Final Result Performing Organization Address [facility] de Phone Number [facility] [address] [place] [address] * Complete Blood Count-W/Diff (09/17/2024 8:36 AM CDT) WBC 5.8 3.5 - 10.5 x10(9)/L 09/17/2024 8:39 AM T [facility] RBC 5.35 4.32 - 5.72 x10(12)/L 09/17/2024 8:39 AM [facility] Hemoglobin 15.6 13.5 - 17.5 g/dL 09/17/2024 8:39 AM [facility] HCT 46.1 38.8 - 50.0 % 09/17/2024 8:39 AM [facility] MCV 86.2 80.0 - 100.0 fL 09/17/2024 8:39 AM [facility] MCH 29.2 27.6 - 33.3 pg 09/17/2024 8:39 AM [facility] MCHC 33.8 31.5 - 35.2 g/dL 09/17/2024 8:39 AM [facility] RDW 13.6 11.9 - 15.5 % 09/17/2024 8:39 AM [facility] Platelets 295 150 - 450 x10(9)/L 09/17/2024 8:39 AM [facility] Automated NRBC 0 <=0 /100 WBC 09/17/2024 8:39 AM [facility] Neutrophil Absolute 3.0 1.7 - 7.0 10(9)/L 09/17/2024 8:39 AM [facility] Lymphocyte Absolute 1.6 1.0 - 4.8 10(9)/L 09/17/2024 8:39 AM [facility] Monocyte Absolute 0.5 0.2 - 0.9 10(9)/L 09/17/2024 8:39 AM [facility] Eosinophil Absolute 0.5 0.0 - 0.5 10(9)/L 09/17/2024 8:39 AM [facility] Basophil Absolute 0.1 0.0 - 0.3 10(9)/L 09/17/2024 8:39 AM [facility] Immature Granulocyte % 0.3 0.0 - 0.5 % 09/17/2024 8:39 AM [facility] Blood Venipuncture / Unknown 09/17/2024 8:36 AM CDT 09/17/2024 8:36 AM T us Alexsander Quick MD LAB_1 Final Result [facility] [address] [place] [address], [facility] * AST (09/17/2024 8:36 AM CDT) AST (SGOT) 25 10 - 40 U/L 09/17/2024 9:44 AM [facility] Blood Venipuncture / Unknown 09/17/2024 8:36 AM CDT 09/17/2024 8:36 AM CDT Alexsander Quick MD LAB_1 Final Result Performing Organization Address [facility] de Phone Number [facility] [address] [place] [address] * Hepatitis C Antibody, with Reflex (11/05/2013 10:13 AM CDT) Hepatitis C Antibody Non-React Non-Reacti ve HP CONVERSION 11/05/2013 10:1 3 AM CDT 11/05/2013 12:29 PM CDT Alexsander Quick MD LAB_1 Final Result Performing Organization Address [facility] de Phone Number HP CONVERSION [...] LAB_1 Final Resul t Performing Organization Address City/[facility] Co de Phone Number HP CONVERSION from Last 3 Months or Most Recently Relevant to Health Maintenance Insurance BCBS OUT OF STATE Care Teams Technical Services Assistant Relationship Specialty Start Date End Date Gary Foreman MD [address] [place] [address] PCP - General 07/12/10
--- OUTSIDE RECORDS SUMMARY | 2024-11-29 04:27 | XMS_ITS | Encounter Summary ---
Author Organization [facility] Address [address] [place] [address] Care Team Providers Care Channeler Runner Name Role Phone Unavailable Primary Care Provider Unavailabl e Encounter Details Date Type Department Care Team (Late st Contact Info) Description 08/16/2008 Historical Ophthalmology RST OPH Gary Wellington M.D. 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
--- OUTSIDE RECORDS SUMMARY | 2024-11-29 04:27 | XMS_ITS | Encounter Summary ---
Author Organization [facility] Address [address] [place] [address] Care Team Providers Care Gear Changer Name Role Phone Unavailable Primary Care Provider Unavailabl e Encounter Details Date Type Department Care Team (Late st Contact Info) Description 10/15/2008 Historical Ophthalmology RST OPH Gary Wellington M.D. 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 He will call with his hide dropper's name and address, I will write him with the suggestion. Continue current Rx. Recheck 1 month CDM Reports - EYEGEN Id: [id number] Status: Fnl documented in this encounter Plan of Treatment Not on file documented as of this encounter Visit Diagnoses Not on filedocumented in this encounter
--- OUTSIDE RECORDS SUMMARY | 2024-11-29 04:27 | XMS_ITS | Encounter Summary ---
Author Organization [facility] Address [address] [place] [address] Care Team Providers Care Implementation Advisor Name Role Phone Unavailable Primary Care Provider Unavailabl e Encounter Details Date Type Department Care Team (Late st Contact Info) Description 07/23/2008 Historical Ophthalmology RST OPH Gary Wellington M.D. 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
--- OUTSIDE RECORDS SUMMARY | 2024-11-29 04:27 | XMS_ITS ---
Author Name Interface, [id number] lity Address [address] [place] [address] Oncology Address [address] [place] [address] Allergies and Adverse Reactions Plan Reason for Visit Encounters Immunizations Medications Problems Vital Signs
--- OUTSIDE RECORDS SUMMARY | 2024-11-29 04:27 | XMS_ITS | CCD ---
Author Name Interface, [id number] lity Address [address] [place] [address] Organization [facility] Address [address] [place] [address] Care Team Providers Care Binder Coverstitch Name Role Phone Bennett LUCIA, Aarti Unavailable Unavai lable Allergies and Adverse Reactions Reason for Visit Medications Problems Social History
--- OUTSIDE RECORDS SUMMARY | 2024-11-29 04:27 | XMS_ITS | Encounter Summary ---
Author Organization [facility] Address [address] [place] [address] Care Team Providers Care Mobile Application Developer Name Role Phone Unavailable Primary Care Provider Unavailabl e Encounter Details Date Type Department Care Team (Late st Contact Info) Description 06/26/2008 Historical Ophthalmology RST OPH Gary Wellington M.D. 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 Recheck 3 weeks. CDM Reports - [employer] Id: [id number] Status: Fnl documented in this encounter Plan of Treatment Not on file documented as of this encounter Visit Diagnoses Not on filedocumented in this encounter
--- OUTSIDE RECORDS SUMMARY | 2024-11-29 04:27 | XMS_ITS | Encounter Summary ---
Author Organization [facility] Address [address] [place] [address] Care Team Providers Care Electronic Scale Subassembler Name Role Phone Unavailable Primary Care Provider Unavailabl e Encounter Details Date Type Department Care Team (Late st Contact Info) Description 07/11/2009 Historical Ophthalmology RST OPH Gary Wellington M.D. 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 I will write his after school program assistant to give him an update on the eye status. He has been getting bloodschecked with him (Dr. Irene at [facility]). DIAGNOSIS #1 HLA-B27 positive uveitis left eye CDM Reports - EYEGEN Id: [id number] Status: Fnl documented in this encounter Plan of Treatment Not on file documented as of this encounter Visit Diagnoses Not on filedocumented in this encounter
--- OUTSIDE RECORDS SUMMARY | 2024-11-29 04:27 | XMS_ITS | Encounter Summary ---
Author Organization [facility] Address [address] [place] [address] Care Team Providers Care Side Splitter Name Role Phone Unavailable Primary Care Provider Unavailabl e Encounter Details Date Type Department Care Team (Late st Contact Info) Description 11/15/2008 Historical Ophthalmology RST OPH Gary Wellington M.D. 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 He sees his track car operator next week for consideration of methorexate. In the meantime we will continue current Rx, recheck 6 weeks. DIAGNOSIS #1 HLA-B27 positive uveitis left eye CDM Reports - EYEGEN Id: [id number] Status: Fnl documented in this encounter Plan of Treatment Not on file documented as of this encounter Visit Diagnoses Not on filedocumented in this encounter
--- OUTSIDE RECORDS SUMMARY | 2024-11-29 04:27 | XMS_ITS | Encounter Summary ---
Author Organization [facility] Address [address] [place] [address] Care Team Providers Care Field Service Engineer Name Role Phone Unavailable Primary Care Provider Unavailabl e Encounter Details Date Type Department Care Team (Late st Contact Info) Description 02/04/2009 Historical Ophthalmology RST OPH Gary Wellington M.D. 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 CDM Reports - EYEGEN Id: [id number] Status: Fnl documented in this encounter Plan of Treatment Not on file documented as of this encounter Visit Diagnoses Not on filedocumented in this encounter
--- OUTSIDE RECORDS SUMMARY | 2024-11-29 04:27 | XMS_ITS | Encounter Summary ---
Author Organization [facility] Address [address] [place] [address] Care Team Providers Care Glass Melt Operator Name Role Phone Unavailable Primary Care Provider Unavailabl e Encounter Details Date Type Department Care Team (Late st Contact Info) Description 09/06/2008 Historical Ophthalmology RST OPH Gary Wellington M.D. 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
--- OUTSIDE RECORDS SUMMARY | 2024-11-29 04:27 | XMS_ITS | Encounter Summary ---
Author Organization [facility] Address [address] [place] [address] Care Team Providers Care Erp Consultant Name Role Phone Unavailable Primary Care Provider Unavailabl e Encounter Details Date Type Department Care Team (Late st Contact Info) Description 03/14/2009 Historical Ophthalmology RST OPH Gary Wellington M.D. 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
--- OUTSIDE RECORDS SUMMARY | 2024-11-29 04:27 | XMS_ITS | Clinical Summary ---
Author Organization [facility] Address [address] [place] [address] Care Team Providers Care Field Account Director Name Role Phone Unavailable Primary Care Provider Unavailabl e Source Comments Patient records contain information from all sites at [facility]. For routine questions regarding patient records, call [phone] during business hours, M-F 8:00 AM - 5:00 PM Central Time. Record requests for emergency care only can be directed to [phone] at any time.[facility] Allergies Active Allergy Reactions Criticality Noted [...] Tobacco: Never Tobacco Cessation:Counseling Given: Not Answered [facility] Utilities Answer Date Recorded In the past [...] your living situation today? [facility] live 06/26/2023 Education Answer Date Recorded What is the highest level of school you have completed or the highest degree you have received? 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 LAB BLOOD ADD-ON Final Result [facility] [address] [place] [address], [place] DTL [facility] [address] [place] [address] * (ABNORMAL) Lipid Panel (10/29/2016 7:05 AM CDT) Cholesterol, Total 218(H) SeeComment MG/DL [facility] Comment: REFERENCE VALUE Desirable: < 200 Borderline high: 200 - 239 High: > or = 240 Triglycerides 76 SeeComment MG/DL [facility] Comment: REFERENCE VALUE Normal: <150 Borderline high: 150-199 High: 200-499 Very high: > or =500 Cholesterol, Non-HDL, Calculated 163(H) SeeComment MG/DL [facility] Comment: REFERENCE VALUE Desirable: <130 Above Desirable: 130-159 Borderline high: 160-189 High: 190-219 Very high: > or =220 Cholesterol, HDL, S 55 >=40 MG/DL [facility] Calculated LDL 148(H) SeeComment MG/DL [facility] Comment: REFERENCE VALUE Desirable: <100 Above Desirable: 100-129 Borderline high: 130-159 High: 160-189 Very high: > or =190 10/29/2016 7:05 AM CDT 10/29/2016 7:05 AM CDT us Gary Lind M.D. LAB BLOOD ADD-ON Final Res ult [facility] [address] from Last 3 Months or Most Recently Relevant to Health Maintenance Insurance [facility]
--- OUTSIDE RECORDS SUMMARY | 2024-11-29 04:27 | XMS_ITS | CCD ---
Author Name Interface, [id number] lity Address [address] [place] [address] [address] [address] Organization [facility] Address [address] [facility] [address] [address] Care Team Providers Care Firer Tunnel Kiln Name Role Phone Bennett LUCIA, Aarti Torres Unavai lable Allergies and Adverse Reactions Medication/Group Name Reaction Severity Date zolpidem 03/03/2020 cefuroxime 09/29/2020 fluorometholone 09/29/2020 tetracycline 09/29/2020 Ambien 09/29/2020 Reason for Visit [facility] [...]
--- OUTSIDE RECORDS SUMMARY | 2024-11-29 04:28 | XMS_ITS | Clinical Summary ---
Author Organization [employer] [facility] Address [address] [place] [address] Care Team Providers Care Health Claims Examiner Name Role Phone Jon Irene MD Unavailable [phone] Soraida Marion MD Unavailable [phone] Alexsander Quick Unavailable [phone] Cezar Esparza MD Primary Care Provider [...] sprayIndication s:Allergy, unspecified, initial encounter Inhale 1 Cochran into both nostrils 2 times daily. For [...] EVERY DAY 90 Tablet 04/12/19 24 Active nystatin (MYCOSTATIN) 100,000 unit/mL suspensionIndic ations:Thrush Swish and swallow 5 mL (500,000 units) by mouth four times daily. 473 mL 11/15/19 24 Active albuterol HFA (PRO-AIR; VENTOLIN; PROVENTIL) 90 mcg/actuation inhalerIndicati ons:Mild persistent asthma without complication (HC) INHALE 1 TO 2 PUFFS BY MOUTH EVERY 4 HOURS NEEDED FOR SHORTNESS OF BREATH 8.5 g 1 05/31/19 25 Active clobetasol 0.05 % cream 05/02/19 25 Active albuterol-iprat ropium (2.5-0.5 mg) in 3 mL NEBULIZATION solution Inhale by mouth. 09/09/19 23 Active mometasone 0.1 % ointmentIndicat ions:Rash and other nonspecific skin eruption Apply topically to affected area(s) once daily. 45 g 1 07/24/19 25 Active clotrimazole 1 % creamIndication s:Rash and other nonspecific skin eruption Apply topically to affected area(s) two times daily. 45 g 1 07/24/19 25 Active albuterol HFA 90 mcg/actuation inhalerIndicati ons:Asthma, unspecified asthma severity, unspecified whether complicated, unspecified whether persistent (HC) Inhale 2 Puffs by mouth 4 times daily if needed for Shortness Of Breath. 1 Each 1 07/24/19 25 Active mometasone 0.1 % ointmentIndicat ions:Rash and other nonspecific skin eruption Apply topically to affected area(s) once daily. 45 g 1 08/02/19 25 Active clotrimazole 1 % creamIndication s:Rash and other nonspecific skin eruption Apply topically to affected area(s) two times daily. 45 g 1 08/02/19 25 Active triamcinolone 0.1 % creamIndication s:Chronic eczema APPLY TOPICALLY TO AFFECTED AREAS THREE TIMES DAILY NEEDED 454 g 10/14/19 25 Active zafirlukast 10 mg tabletIndicatio ns:Allergy, unspecified, initial encounter TAKE ONE TABLET BY MOUTH TWICE DAILY AFTER MEALS 180 Tablet 10/19/19 25 Active fluticasone fur-umeclidiniu m-vilanterol (Trelegy Ellipta) 100-62.5-25 mcg inhalerIndicati ons:Asthma, unspecified asthma severity, unspecified whether complicated, unspecified whether persistent (HC) INHALE 1 PUFF BY MOUTH DAILY 180 Each 11/29/19 25 Active fluticasone fur-umeclidiniu m-vilanterol (Trelegy Ellipta) 100-62.5-25 mcg inhalerIndicati ons:Asthma, unspecified asthma severity, unspecified whether complicated, unspecified whether persistent (HC) Inhale 1 Puff by mouth once daily. 60 Each 3 08/02/19 25 2024 Discontinued Active Problems Problem Noted Date [...] [place] Jan 2014: [place] [facility] [place], changed to adviar 250/50, increase to 500/50 [...] Encounters Date Type Department Care Team Description 11/26/[address] [address] [place] MBBS Refill Request (Trelegy Ellipta) 11/11/2024 Orders Only [facility] Scanner 1 scan: (1-Ord) [facility], CT ANGIO HEAD, 11/11/2024 11/11/2024 Orders Only [facility] Scanner 1 scan: (1-Ord) [place], CT ANGIO NECK, 11/11/2024 11/11/2024 Orders Only [facility] Scanner 1 scan: (1-Ord) [place], CT HEAD/BRAIN W/O CON, 11/11/2024 10/16/2024 Refill [facility] [address] [place] [address] Cezar Esparza MD Refill Request (Zafirlukast) 10/11/2024 Refill [facility] [address] [place] [address] Czear Esparza MD Refill Request (Triamcinolone) 09/23/2024 Travel 09/19/2024 7:00 AM CDT Office Visit [facility] [address] [place] [address] Luann Richards MD Derm Problem (6 months on/off itchy rashes /Cortisone cream no relief /Sees Receiving Manager they recommended to see provider ) 09/18/2024 Travel from Last 3 Months Immunizations Immunization Administration Dates Next Due AMB Influenza, IIV3 (Age >=3 years)(Flu Clinic Only) 01/13/2009 AMB Influenza, IIV4 PF (=>6 mos Flulaval,Fluzone Fluarix)(Flu Clinic Only) 01/08/2020 COVID-19 vaccine (thereNow [email or web address] 30mcg/0.3mL) PF, MDV 07/19/2020,06/28/2020 Hepatitis A (Adult) [...] on file Legal Sex Male 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 Gender Identity Not on file Sexual Orientation [...] 36.8 C (98.2 F) 05/14/2024 8:53 AM MANUFACTURING LAB TECHNICIAN Respiratory Rate 18 03/09/2024 8:38 AM MANUFACTURING LAB TECHNICIAN Oxygen Saturation 97% 09/19/2024 7:10 AM CDT Inhaled Oxygen Concentration - - Weight 110.5 kg (243 lb 8 oz) 09/19/2024 7:10 AM CDT Height 170.2 cm (5' 7) 02/28/2024 9:53 AM MANUFACTURING LAB TECHNICIAN Body Mass Index 38.14 02/28/2024 9:53 AM MANUFACTURING LAB TECHNICIAN Plan of Treatment Health Maintenance Due Date [...] Procedure Name Priority Date/Time Associated Diagnosis Comments SCAN-CT INTERPRETATION 5 12:00 AM CDT SCAN-CT INTERPRETATION 5 12:00 AM CDT SCAN-CT INTERPRETATION 5 12:00 AM CDT LIPID PANEL W REFLEX MEASURED LDL Routine 08/22/2023 9:25 AM CDT Hyperlipidemia, unspecified hyperlipidemia type ANTI HCV Routine 01/01/2022 8:55 AM CDT Need for hepatitis C screening test COLONOSCOPY SCREENING Routine 11/13/2018 12:00 PM CDT Epigastric pain Generalized abdominal pain from Last 3 Months or Most Recently Relevant to Health Maintenance Results * SCAN-CT INTERPRETATION (11/11/2024 12:00 AM CDT) Only the most recent of3 resultswithin the time period is included. Anatomical Region Laterality Modality Other us Scanner OTHER Final Result * (ABNORMAL) LIPID PANEL W REFLEX MEASURED LDL (08/22/2023 9:25 AM CDT) CHOLESTEROL,TOTAL 246(H) 100 - 199 mg/dL 08/22/2023 6:31 PM CDT [facility] Comment: Cholesterol, Total Reference Ranges Desirable <200 mg/dL Borderline 200-239 mg/dL High >=240 mg/dL TRIGLYCERIDES 70 <150 mg/dL 08/22/2023 6:31 PM CDT [facility] HDL CHOLESTEROL 62 >40 mg/dL 6:31 PM CDT [facility] NON-HDL CHOLESTEROL 184(H) <145 mg/dl 08/22/2023 6:31 PM CDT [facility] CHOL/HDL RATIO 3.97 <4.50 08/22/2023 6:31 PM CDT [facility] LDL CHOLESTEROL 170(H) <=130 mg/dL 08/22/2023 6:31 PM CDT [facility] VLDL CHOLESTEROL 14 <=30 mg/dL 08/22/2023 6:31 PM CDT [facility] PROVIDER ORDERED STATUS RANDOM 08/22/2023 6:31 PM CDT [facility] Blood BLOOD SPECIMEN / Unknown Venipuncture / Unknown 08/22/2023 9:25 AM CDT 08/22/2023 9:25 AM CDT us Maranda Borja MD CHEMISTRY Final Resul t [facility] [address] [place] [address], * ANTI HCV (01/01/2022 8:55 AM CDT) HEPATITIS C ANTIBODY Non-React jesenia Non-React jesenia 01/02/2022 5:36 AM CDT [facility] Comment:Antibodies to HCV no t detected; does not exclude the possibility of exposure to HCV. Blood BLOOD SPECIMEN / Unknown Venipuncture / Unknown 01/01/2022 8:55 AM CDT 01/01/2022 8:56 AM CDT us Antonieta Stern DO SEND OUTS Final Result [facility] [address] [place] [id number], * COLONOSCOPY SCREENING (11/13/2018 12:00 PM CDT) us Nura Caban MD GI PROCEDURE ORD Final Res ult from Last 3 Months or Most Recently Relevant to Health Maintenance Insurance [facility] OF NON-CA-ITS [facility] [employer] Advance Directives * Full Code (Latest Code [...] 7:11 AM 08/20/2011 2:05 AM Care Teams Health Claims Examiner Relationship Specialty Start Date End Date Cezar Esparza MD [address] [place] [address] PCP - General Family Practice 01/10/19 Jon Irene MD [address] [place] [address] Rheumatology 03/01/11 Soraida Marion MD [address] [place] [address] Pulmonology Pulmonary Medicine 04/09/14 Alexsander Quick [address] [place] [address] Rheumatology Rheumatology 06/06/14
[2024-11-29 04:30] VITALS: BP 152/110; PULSE 72; RESP 16; TEMP 36.7; O2SAT 98; BMI 37.3
--- NOTE | 2024-11-29 05:08 | ED_ITS ---
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 Apparently a biopsy was done that showed this to be atopic dermatitis. He has been undergoing light treatments with some improvement. In the past as steroid injection helped lot. The rash has flared up again over the past couple of days and the itching and discomfort was too intense for him to sleep last night. He takes Benadryl on occasion because he could not tolerate hydroxyzine. He does take a daily Zyrtec. Related Data Home Medications ?Medication ?Instructions ?Recorded ?Confirmed albuterol sulfate 90 mcg/actuation 1 inh inhalation ON CE 11/06/21 11/11/24 aerosol inhaler cetirizine 10 mg capsule (All Day 10 mg PO QDAY PRN 11/11/24 Allergy (cetirizine)) fluticasone 250 mcg-salmeterol 50 1 inh inhalation BID 11/06/21 04/09/24 mcg/dose blistr powdr for inhalation (Advair Diskus) omeprazole 20 mg capsule,delayed 20 mg PO QDAY 2 04/09/24 release sulfasalazine 500 mg tablet 0.5 g PO QDAY 11/06/2107/03 zafirlukast 10 mg tablet 20 mg PO BID 11/06/21 ipratropium 0.5 mg-albuterol 3 mg 3 ml inhalation Q6H PRN 09/08/22 11/11/24 (2.5 mg base)/3 mL nebulization soln fluconazole 200 mg tablet 200 mg PO DAILY 02/26/23 fluticasone fur. 100 mcg-umeclid 1 ea inhalation DAILY 11/11/24 11/11/24 62.5 mcg-vilant 25 mcg inhalat.powder (Trelegy Ellipta) Previous Rx's ?Medication ?Instructions ?Recorded nystatin 100,000 unit/mL oral 5 ml PO QID #200 mL 10/10 12/31 suspension ondansetron HCl 4 mg tablet 4 mg PO Q6H #20 tabs 08/30 pantoprazole 40 mg tablet,delayed 40 mg PO DAILY #20 t abs 08/30/22 release (Protonix) hydrocortisone 2.5 % topical cream 1 applic topical BI D PRN rash #20 04/09/24 grams prednisone 20 mg tablet 20 mg PO DAILY #14 tabs 11/10 05/05 Allergies Allergy/AdvReac Type Severity Reaction Status Date / Time zolpidem Allergy Severe Verified 11/29/24 04:37 cefuroxime Allergy Intermediate Diarrhea Verified 11/29/24 04:37 fluorometholone Allergy Intermediate Diarrhea Verified 11/29/24 04:37 banana Allergy Mild Verified 11/29/24 04:37 clavulanic acid Allergy Mild Verified 11/29/24 04:37 tetracycline Allergy Mild Verified 11/29/24 04:37 dragon fruit Allergy Verified 11/29/24 04:37 kiwi Allergy Verified 11/29/24 04:37 Review of Systems Narrative: Review of systems is outlined above otherwise noted to be negative. [facility] Medical History Sore throat ?J02.9 - Acute pharyngitis, unspecified (ICD-10) Social History Smoking Status: Never smoker Do you use any of these nicotine containing products: None Second hand tobacco smoke exposure: No How often do you have a drink containing alcohol: monthly or less How many standard drinks containing alcohol do you have on a typical day: 1 or 2 How often do you have six or more drinks on one occasion: Never AUDIT-C Alcohol total score: 1 Non-prescribed substance use: denies use service: No Exam Narrative: Exam Narrative: Objective: Vitals noted. Lungs are clear. Heart is regular rate rhythm without murmur. He has a diffuse maculopapular rash involving his back and neck, arms and forearms. Minimal findings on his legs. Nothing on his palms or soles. Nothing vesicular. Const: Vital Signs, click to edit/add: Vital Signs - 24 hr 11/29/24 04:30 Temperature 98.1 F Pulse Rate [Right Pulse Oximeter] 72 Respiratory Rate 16 Blood Pressure [Ri ght Upper Arm] 152/110 H Pulse Oximetry 98 Oxygen Delivery Me thod Room Air Course Course ED Course: Patient was seen and examined. He is given prednisone 50 mg orally. He is also given Benadryl 50 mg orally. He is discharged with his to drive. We discussed his rash looks more allergic atopic dermatitis. I would think that the skin biopsy would be accurate however. He has seen an shadowgraph operator in the remote past but probably should see one again. Vital Signs Vital signs: Initial Vital Signs Temperature 98.1 F 11/29/24 04:30 Temperature Source Temporal Artery Scan 11/29/24 04:30 Pulse Rate 72 11/29/24 04:30 Pulse Rhythm Regular 11/29/24 04:30 Pulse Strength 3+ Normal 11/29/24 04:30 Respiratory Rate 16 11/29/24 04:30 Blood Pressure 152/110 H 11/29/24 04:30 Blood Pressure Mean 124 H 11/29/24 04:30 Blood Pressure Position Sitting 11/29/24 04:30 Pulse Oximetry 98 11/29/24 04:30 Oxygen Delivery Method Room Air 11/29/24 04:30 Vital Signs Temperature 98.1 F 11/29/24 04:30 Pulse Rate 72 11/29/24 04:30 Respiratory Rate 16 11/29/24 04:30 Blood Pressure 152/110 H 11/29/24 04:30 Pulse Oximetry 98 11/29/24 04:30 Oxygen Delivery Method Room Air 11/29/24 04:30 Temperature 98.1 F 11/29/24 04:30 Pulse Rate 72 11/29/24 04:30 Respiratory Rate 16 11/29/24 04:30 Blood Pressure 152/110 H 11/29/24 04:30 Pulse Oximetry 98 11/29/24 04:30 Oxygen Delivery Method Room Air 11/29/24 04:30 Discharge Plan Discharge Clinical Impression: Urticaria Patient Disposition: Home, Self-Care Condition: Improved Additional Instructions: Keep skin cool. Prednisone 40 mg daily x 4 days then 20 mg daily x 4 days then 10 mg daily x 4 days then stop. Take Benadryl or hydroxyzine for itching. Increase Zyrtec to twice daily. Follow up with your PCP to discuss referral to an shadowgraph operator. Keep appts for light therapy. Prescriptions: New prednisone 20 mg tablet 20 mg PO DAILY Qty: 14 0RF Rx Instructions: 2 QD x 4 days then 1 QD x 4 days then 1/2 QD x 4 days No Action fluticasone propion-salmeterol [Advair Diskus] 250-50 mcg/dose blister with device 1 inh inhalation BID zafirlukast 10 mg tablet 20 mg PO BID Rx Instructions: must be taken on empty stomach, at least 1 hr before or 2 hrs after a meal/food sulfasalazine 500 mg tablet 0.5 g PO QDAY Rx Instructions: give with food (meal/snack) albuterol sulfate 90 mcg/actuation HFA aerosol inhaler 1 inh inhalation ONCE omeprazole 20 mg capsule,delayed release(DR/EC) 20 mg PO QDAY All Day Allergy (cetirizine) 10 mg capsule 10 mg PO QDAY PRN nystatin 100,000 unit/mL suspension 5 ml PO QID Qty: 200 1RF Rx Instructions: swish and swallow fluconazole 200 mg tablet 200 mg PO DAILY ipratropium-albuterol 0.5 mg-3 mg(2.5 mg base)/3 mL solution for nebulization 3 ml inhalation Q6H PRN hydrocortisone 2.5 % cream 1 applic topical BID PRN (Reason: rash) Qty: 20 0RF Trelegy Ellipta 100-62.5-25 mcg blister with device 1 ea INHALATION DAILY ondansetron HCl 4 mg tablet 4 mg PO Q6H Qty: 20 0RF pantoprazole [Protonix] 40 mg tablet,delayed release (DR/EC) 40 mg PO DAILY Qty: 20 2RF Follow Up/Referrals: Cezar Esparza MD [Primary Care Provider, Family Practice] Stand Alone Forms: [employer] Info Instructions
--- OUTSIDE RECORDS SUMMARY | 2024-11-29 05:16 | XMS_ITS ---
Author Name Interface, [id number] lity Address [address] [place] [address] Oncology Address [address] [place] [address] Allergies and Adverse Reactions Plan Reason for Visit Encounters Immunizations Medications Problems Vital Signs
--- OUTSIDE RECORDS SUMMARY | 2024-11-29 05:17 | XMS_ITS ---
Author Name Interface, [id number] lity Address [address] [place] [address] [address] [place] [address] [facility] Oncology Address [facility] [address] [place] [address] Allergies and Adverse Reactions Medication/Group Name Reaction [...] us Covid-19 vaccine (Pfizer) Completed Covid-19 vaccine (Transifex) Completed Medications Date Name Route Dose Frequency [...]
--- OUTSIDE RECORDS SUMMARY | 2024-11-29 05:17 | XMS_ITS | CCD ---
Author Name Interface, [id number] lity Address [address] [place] [address] Organization [facility] Address [address] [place] [address] Care Team Providers Care Drawing Box Tender Name Role Phone Bennett LUCIA, Aarti Unavailable Unavai lable Allergies and Adverse Reactions Reason for Visit Medications Problems Social History
--- OUTSIDE RECORDS SUMMARY | 2024-11-29 05:17 | XMS_ITS | CCD ---
Author Name Interface, [id number] lity Address [address] [place] [address] Organization [facility] Address [address] [place] [address] Care Team Providers Care Custom Dressmaker Name Role Phone Bennett LUCIA, Aarti Unavailable Unavai lable Allergies and Adverse Reactions Reason for Visit Medications Problems Social History
== END 2024-11-29 05:26 | disposition home or self-care (01) ==
PROVIDERS: Emergency Provider Family Medicine; PCP Family Medicine
DX: L50.9 Urticaria, unspecified (principal)
CPT/HCPCS: 99282; 99283; A9270; J7512

== ENCOUNTER 2024-12-02 01:08 | Emergency (ER) | payer OTHER, SELFPAY ==
--- OUTSIDE RECORDS SUMMARY | 2024-12-02 01:11 | XMS_ITS | Encounter Summary ---
Author Organization [facility] Address [address] [place] [address] Care Team Providers Care Treasury Manager Name Role Phone Unavailable Primary Care Provider Unavailabl e Encounter Details Date Type Department Care Team (Late st Contact Info) Description 06/26/2008 Historical Ophthalmology RST OPH Gary Wellington M.D. 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 Recheck 3 weeks. CDM Reports - [facility] Id: [id number] Status: Fnl documented in this encounter Plan of Treatment Not on file documented as of this encounter Visit Diagnoses Not on filedocumented in this encounter
--- OUTSIDE RECORDS SUMMARY | 2024-12-02 01:11 | XMS_ITS | Clinical Summary ---
Author Organization [facility] Address [address] [place] [address] Care Team Providers Care Operations Research Manager Name Role Phone Unavailable Primary Care Provider Unavailabl e Source Comments Patient records contain information from all sites at [facility]. For routine questions regarding patient records, call [phone] during business hours, M-F 8:00 AM - 5:00 PM Central Time. Record requests for emergency care only can be directed to [phone] at any time.[facility] Allergies Active Allergy Reactions Criticality Noted [...] Tobacco: Never Tobacco Cessation:Counseling Given: Not Answered 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 LAB BLOOD ADD-ON Final Result [facility] [address] [place] [address], [place] DTL [facility] [address] [place] [address] * (ABNORMAL) Lipid Panel (10/29/2016 7:05 AM CDT) Cholesterol, Total 218(H) SeeComment MG/DL [facility] Comment: REFERENCE VALUE Desirable: < 200 Borderline high: 200 - 239 High: > or = 240 Triglycerides 76 SeeComment MG/DL [facility] Comment: REFERENCE VALUE Normal: <150 Borderline high: 150-199 High: 200-499 Very high: > or =500 Cholesterol, Non-HDL, Calculated 163(H) SeeComment MG/DL [facility] Comment: REFERENCE VALUE Desirable: <130 Above Desirable: 130-159 Borderline high: 160-189 High: 190-219 Very high: > or =220 Cholesterol, HDL, S 55 >=40 MG/DL [facility] Calculated LDL 148(H) SeeComment MG/DL [facility] Comment: REFERENCE VALUE Desirable: <100 Above Desirable: 100-129 Borderline high: 130-159 High: 160-189 Very high: > or =190 10/29/2016 7:05 AM CDT 10/29/2016 7:05 AM CDT us Gary Lind M.D. LAB BLOOD ADD-ON Final Res ult [facility] [address] from Last 3 Months or Most Recently Relevant to Health Maintenance Insurance [facility]
--- OUTSIDE RECORDS SUMMARY | 2024-12-02 01:11 | XMS_ITS | Encounter Summary ---
Author Organization [facility] Address [address] [place] [address] Care Team Providers Care Transcript Evaluator Name Role Phone Unavailable Primary Care Provider Unavailabl e Encounter Details Date Type Department Care Team (Late st Contact Info) Description 07/11/2009 Historical Ophthalmology RST OPH Gary Wellington M.D. 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 I will write his back tender pulp drier to give him an update on the eye status. He has been getting bloodschecked with him (Dr. Irene at [place]). DIAGNOSIS #1 HLA-B27 positive uveitis left eye CDM Reports - [facility] Id: [id number] Status: Fnl documented in this encounter Plan of Treatment Not on file documented as of this encounter Visit Diagnoses Not on filedocumented in this encounter
--- OUTSIDE RECORDS SUMMARY | 2024-12-02 01:11 | XMS_ITS ---
Author Name Interface, [id number] lity Address [address] [place] [address] Oncology Address [address] [place] [address] Allergies and Adverse Reactions Plan Reason for Visit Encounters Immunizations Medications Problems Vital Signs
--- OUTSIDE RECORDS SUMMARY | 2024-12-02 01:11 | XMS_ITS | Encounter Summary ---
Author Organization [facility] Address [address], [place] [address] Care Team Providers Care Personal Carer Name Role Phone Gary Foreman MD Primary Care Provider [phone] Encounter Details Date Type Department Care Team (Late st Contact Info) Description 09/17/2024 Results Follow-Up Rheumatology at [address] [id number] Alexsander Quick MD [facility] [place], [place] [phone] Social History Tobacco Use Types Packs/Day Years [...] 09/18/2025 3:45 PM CDT Appointment Rheumatology at [address] [id number] Alexsander Quick MD [address] [place], [place] [phone] documented as of this encounter Visit Diagnoses Not on filedocumented in this encounter Care Teams Personal Carer Relationship Specialty Start Date End Date Gary Foreman MD [address] [place] [address] PCP - General 07/12/10 documented as of this encounter
--- OUTSIDE RECORDS SUMMARY | 2024-12-02 01:11 | XMS_ITS | Encounter Summary ---
Author Organization [facility] Address [address] [place] [address] Care Team Providers Care Presser Machine Name Role Phone Unavailable Primary Care Provider Unavailabl e Encounter Details Date Type Department Care Team (Late st Contact Info) Description 03/14/2009 Historical Ophthalmology RST [facility] Gary Wellington M.D. 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
--- OUTSIDE RECORDS SUMMARY | 2024-12-02 01:11 | XMS_ITS | CCD ---
Author Name Interface, [id number] lity Address [address] [place] [address] Organization [facility] Address [address] [place] [address] Care Team Providers Care Catalog Specialist Name Role Phone Bennett LUCIA, Aarti Unavailable Unavai lable Allergies and Adverse Reactions Reason for Visit Medications Problems Social History
--- OUTSIDE RECORDS SUMMARY | 2024-12-02 01:11 | XMS_ITS | Clinical Summary ---
Author Organization [facility] Address [address] [place] [address] Care Team Providers Care World Language Teacher Name Role Phone Vilma Cezar Farley Primary Care Provider [phone] Aspen Weiner DIMENSION STONE QUARRY SUPERVISOR FLIGHT ENGINEER INSPECTOR Unavaila ble Allergies Active Allergy Reactions Criticality [...] on file Legal Sex Male 3:19 AM DISPUTE RESOLUTION SPECIALIST Gender Identity Not on file Sexual [...] patient's age to complete this topic Insurance [facility] Horrance [facility] Care Teams World Language Teacher Relationship Specialty Start Date End Date Cezar Esparza [facility] [place] [address] PCP - General Family Medicine 02/11/21 Aspen Weiner APRN FLIGHT ENGINEER INSPECTOR [address] [place] [address] [id number], [place] [address] Nurse Practitioner Neurology 02/11/21
--- OUTSIDE RECORDS SUMMARY | 2024-12-02 01:12 | XMS_ITS | Encounter Summary ---
Author Organization [facility] Address [address] [place] [address] Care Team Providers Care Pet Food Deboner Name Role Phone Unavailable Primary Care Provider Unavailabl e Encounter Details Date Type Department Care Team (Late st Contact Info) Description 11/15/2008 Historical Ophthalmology [facility] Gary Wellington M.D. 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 He sees his log chain worker next week for consideration of methorexate. In the meantime we will continue current Rx, recheck 6 weeks. DIAGNOSIS #1 HLA-B27 positive uveitis left eye CDM Reports - [facility] Id: [id number] Status: Fnl documented in this encounter Plan of Treatment Not on file documented as of this encounter Visit Diagnoses Not on filedocumented in this encounter
--- OUTSIDE RECORDS SUMMARY | 2024-12-02 01:12 | XMS_ITS | Encounter Summary ---
Author Organization [facility] Address [address] [place] [address] Care Team Providers Care Client Development Director Name Role Phone Unavailable Primary Care Provider Unavailabl e Encounter Details Date Type Department Care Team (Late st Contact Info) Description 09/06/2008 Historical Ophthalmology RST O[facility] Gary Wellington M.D. 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
--- OUTSIDE RECORDS SUMMARY | 2024-12-02 01:12 | XMS_ITS | Encounter Summary ---
Author Organization [facility] Address [address] [place] [address] Care Team Providers Care Senior Account Director Name Role Phone Unavailable Primary Care Provider Unavailabl e Encounter Details Date Type Department Care Team (Late st Contact Info) Description 10/15/2008 Historical Ophthalmology RST OPH Gary Wellington M.D. 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 He will call with his reach lift truck driver's name and address, I will write him with the suggestion. Continue current Rx. Recheck 1 month CDM Reports - [facility] Id: [id number] Status: Fnl documented in this encounter Plan of Treatment Not on file documented as of this encounter Visit Diagnoses Not on filedocumented in this encounter
--- OUTSIDE RECORDS SUMMARY | 2024-12-02 01:12 | XMS_ITS | Encounter Summary ---
Author Organization [facility] Address [address] [place] [address] Care Team Providers Care Dry Mill Worker Name Role Phone Unavailable Primary Care Provider Unavailabl e Encounter Details Date Type Department Care Team (Late st Contact Info) Description 07/23/2008 Historical Ophthalmology RST OPH Gary Wellington M.D. 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
--- OUTSIDE RECORDS SUMMARY | 2024-12-02 01:12 | XMS_ITS | Encounter Summary ---
Author Organization [facility] Address [address] [place] [address] Care Team Providers Care Ob/Gyn Doctor Name Role Phone Unavailable Primary Care Provider Unavailabl e Encounter Details Date Type Department Care Team (Late st Contact Info) Description 12/30/2008 Historical Ophthalmology RST OPH Gary Wellington M.D. 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
--- OUTSIDE RECORDS SUMMARY | 2024-12-02 01:12 | XMS_ITS | Encounter Summary ---
Author Organization [facility] Address [address] [place] [address] Care Team Providers Care Food Service Supervisor Name Role Phone Unavailable Primary Care Provider Unavailabl e Encounter Details Date Type Department Care Team (Late st Contact Info) Description 02/04/2009 Historical Ophthalmology RST OPH Gary Wellington M.D. 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 CDM Reports - [facility] Id: [id number] Status: Fnl documented in this encounter Plan of Treatment Not on file documented as of this encounter Visit Diagnoses Not on filedocumented in this encounter
--- OUTSIDE RECORDS SUMMARY | 2024-12-02 01:12 | XMS_ITS | Clinical Summary ---
Author Organization [employer] Address [address], [place] [address] Care Team Providers Care Business Account Specialist Name Role Phone Gary Foreman MD Primary Care Provider [phone] Source Comments You are receiving this document as you are listed as the primary care provider,follow-up provider, or the patient has been referred to you for consultation.This is in compliance with the Medicare and[facility] Cent[facility] EHR Incentive Program,which states Providers who transition their patient to another setting of careor provider of care or refers their patient to another provider of care shouldprovide summary care record for each transition of care or referral. [employer] Allergies Active Allergy Reactions Criticality Noted Date [...] (AKA RHINOCORT) 32 MCG/ACT nasal spray 1 [place] by Nasal route daily. 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 08/04/2015 Fatty liver 08/04/2015 [...] Description 09/17/2024 8:50 AM CDT Lab Visit [facility] [address] [place] [address] Encounter for long-term (current) use of medications; Rash and nonspecific skin eruption 09/17/2024 8:15 AM CDT Office Visit Rheumatology at [facility] [place] [address] [place] [address] Alexsander Quick MD Iritis (Primary Dx); HLA B27 (HLA B27 positive); Encounter for long-term (current) use of medications; Multiple joint pain; Rash and nonspecific skin eruption; Atopic dermatitis, unspecified type 09/17/2024 Results Follow-Up Rheumatology at [address] [address] Alexsander Quick MD from Last 3 Months Immunizations Immunization Administration Dates Next Due Flu Vac (3+ yrs) 01/30/2013, 2,02/13/2011,2008,03/05/2003,04/16/2002,01/22/1999 Flu Vac Preserv Free (3+yrs) 02/13/2011 Fluzone Qiv Multidose Vial 0 .25 (6-35 Mos) 01/24/2017 HepA Adult (19+ yrs) 03/31/2012,06/27/2002 HepB Ped/Adol (0-18 yrs) 01/20/2005,08/19/2004,0 07/08/2004 Influenza IIV4 (Quadrivalent ) 0.5mL (20022) 01/08/2020,01/10/2019,01/16/2018,2015,01/20/2015,12/24/2013,12/11/2013 Influenza, Unspecified Formulation 12/31/2020,,01/22/1999 MMR 08/15/1998 [...] 36.5 C (97.7 F) 03/02/2021 9:02 AM MANAGER EMERGENCY DEPARTMENT Respiratory Rate - - Oxygen Saturation - - Inhaled Oxygen Concentration - - Weight 115.2 kg (254 lb) 09/15/2022 3:30 PM CDT Height - - Body Mass Index - - Plan of Treatment Upcoming Encounters Date Type Department Care Team (Late st Contact Info) Description 09/18/2025 3:45 PM CDT Appointment Rheumatology at [facility] [id number] [place] [phone] Alexsander Quick MD [address] [place], [place] [id number] Health Maintenance Due Date Last Done Comments [...] - 484 mg/dL 09/18/2024 12:49 PM CDT [facility] Tissue Transglutaminase Antibody, IgA 0.5 0.0 - 6.9 U/mL 09/18/2024 12:49 PM CDT [facility] Tissue Transglutaminase Antibody, IgA Interpretation Negative Negative 09/18/2024 12:49 PM CDT [facility] Blood Venipuncture / Unknown 09/17/2024 8:36 AM CDT 09/17/2024 8:36 AM CDT Alexsander Quick MD LAB_1 Final Result Performing Organization Address [facility]/ZIP Co de Phone Number [facility] [address] * Creatinine / GFR (09/17/2024 8:36 AM CDT) Creatinine 0.94 0.73 - 1.18 mg/dL 09/17/2024 9:44 AM T [facility] GFR, Estimated >60 >60 mL/min/1.7 3m2 09/17/2024 9:44 AM CDT [facility] Blood Venipuncture / Unknown 09/17/2024 8:36 AM CDT 09/17/2024 8:36 AM CDT Alexsander Quick MD LAB_1 Final Result Performing Organization Address [facility] de Phone Number [facility] [address] [place] [address] * Complete Blood Count-W/Diff (09/17/2024 8:36 AM CDT) WBC 5.8 3.5 - 10.5 x10(9)/L 09/17/2024 8:39 AM T [facility] RBC 5.35 4.32 - 5.72 x10(12)/L 09/17/2024 8:39 AM [facility] Hemoglobin 15.6 13.5 - 17.5 g/dL 09/17/2024 8:39 AM [facility] HCT 46.1 38.8 - 50.0 % 09/17/2024 8:39 AM [facility] MCV 86.2 80.0 - 100.0 fL 09/17/2024 8:39 AM [facility] MCH 29.2 27.6 - 33.3 pg 09/17/2024 8:39 AM [facility] MCHC 33.8 31.5 - 35.2 g/dL 09/17/2024 8:39 AM [facility] RDW 13.6 11.9 - 15.5 % 09/17/2024 8:39 AM [facility] Platelets 295 150 - 450 x10(9)/L 09/17/2024 8:39 AM [facility] Automated NRBC 0 <=0 /100 WBC 09/17/2024 8:39 AM [facility] Neutrophil Absolute 3.0 1.7 - 7.0 10(9)/L 09/17/2024 8:39 AM [facility] Lymphocyte Absolute 1.6 1.0 - 4.8 10(9)/L 09/17/2024 8:39 AM [facility] Monocyte Absolute 0.5 0.2 - 0.9 10(9)/L 09/17/2024 8:39 AM [facility] Eosinophil Absolute 0.5 0.0 - 0.5 10(9)/L 09/17/2024 8:39 AM [facility] Basophil Absolute 0.1 0.0 - 0.3 10(9)/L 09/17/2024 8:39 AM [facility] Immature Granulocyte % 0.3 0.0 - 0.5 % 09/17/2024 8:39 AM [facility] Blood Venipuncture / Unknown 09/17/2024 8:36 AM CDT 09/17/2024 8:36 AM T us Alexsander Quick MD LAB_1 Final Result [facility] [address] [place] [address], RUST * AST (09/17/2024 8:36 AM CDT) AST (SGOT) 25 10 - 40 U/L 09/17/2024 9:44 AM [facility] Blood Venipuncture / Unknown 09/17/2024 8:36 AM CDT 09/17/2024 8:36 AM CDT Alexsander Quick MD LAB_1 Final Result Performing Organization Address [facility] de Phone Number [facility] [address] [place] [address] * Hepatitis C Antibody, with Reflex (11/05/2013 10:13 AM CDT) Hepatitis C Antibody Non-React Non-Reacti ve HP CONVERSION 11/05/2013 10:1 3 AM CDT 11/05/2013 12:29 PM CDT Alexsander Quick MD LAB_1 Final Result Performing Organization Address [facility] de Phone Number HP CONVERSION * (ABNORMAL) [...] LAB_1 Final Resul t Performing Organization Address [facility] Co de Phone Number HP CONVERSION from Last 3 Months or Most Recently Relevant to Health Maintenance Insurance BCBS OUT OF STATE Care Teams Business Account Specialist Relationship Specialty Start Date End Date Gary Foreman MD [address] [place] [address] PCP - General 07/12/10
--- OUTSIDE RECORDS SUMMARY | 2024-12-02 01:12 | XMS_ITS | Encounter Summary ---
Author Organization [facility] Address [address] [place] [address] Care Team Providers Care Pilot Plant Supervisor Name Role Phone Unavailable Primary Care Provider Unavailabl e Encounter Details Date Type Department Care Team (Late st Contact Info) Description 07/09/2008 Historical Ophthalmology RST OPH Gary Wellington M.D. 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
--- OUTSIDE RECORDS SUMMARY | 2024-12-02 01:12 | XMS_ITS | Clinical Summary ---
Author Organization [facility] Address [address] [place] [address] Care Team Providers Care Deep Tissue Massage Therapist Name Role Phone Jon Irene MD Unavailable [phone] Soraida Marion MD Unavailable [phone] Alexsander Quick Unavailable [phone] Cezar Esparza MD Primary Care Provider [...] sprayIndication s:Allergy, unspecified, initial encounter Inhale 1 [place] into both nostrils 2 times daily. For [...] [place]. Jan 2014: [place] [facility]ul [address], changed to adviar 250/50, increase to 500/50 [...] Type Department Care Team Description 11/26/[address] [address] [place] MBBS Refill Request (Trelegy Ellipta) 11/11/2024 Orders Only [facility] Scanner 1 scan: (1-Ord) [facility], CT ANGIO HEAD, 11/11/2024 11/11/2024 Orders Only [facility] Scanner 1 scan: (1-Ord) [place], CT ANGIO NECK, 11/11/2024 11/11/2024 Orders Only [facility] Scanner 1 scan: (1-Ord) [place], CT HEAD/BRAIN W/O CON, 11/11/2024 10/16/2024 Refill [facility] [address] [place] [address] Cezar Esparza MD Refill Request (Zafirlukast) 10/11/2024 Refill [facility] [address] [place] [address] Cezar Esparza MD Refill Request (Triamcinolone) 09/23/2024 Travel 09/19/2024 7:00 AM CDT Office Visit [facility] [address] [place] [address] Luann Richards MD Derm Problem (6 months on/off itchy rashes /Cortisone cream no relief /Sees [facility] they recommended to see provider ) 09/18/2024 Travel from Last 3 Months Immunizations Immunization Administration Dates Next Due AMB Influenza, IIV3 (Age >=3 years)(Flu Clinic Only) 01/13/2009 AMB Influenza, IIV4 PF (=>6 mos Flulaval,Fluzone Fluarix)(Flu Clinic Only) 01/08/2020 COVID-19 vaccine (CoreOS NTOrthomimetics 30mcg/0.3mL) PF, MDV 07/19/2020,06/28/2020 Hepatitis A (Adult) [...] on file Legal Sex Male 5:16 AM STRIP CUTTING MACHINE OPERATOR Gender Identity Not on file Sexual Orientation [...] 36.8 C (98.2 F) 05/14/2024 8:53 AM STRIP CUTTING MACHINE OPERATOR Respiratory Rate 18 03/09/2024 8:38 AM STRIP CUTTING MACHINE OPERATOR Oxygen Saturation 97% 09/19/2024 7:10 AM CDT Inhaled Oxygen Concentration - - Weight 110.5 kg (243 lb 8 oz) 09/19/2024 7:10 AM CDT Height 170.2 cm (5' 7) 02/28/2024 9:53 AM STRIP CUTTING MACHINE OPERATOR Body Mass Index 38.14 02/28/2024 9:53 AM STRIP CUTTING MACHINE OPERATOR Plan of Treatment Health Maintenance Due Date [...] - 199 mg/dL 08/22/2023 6:31 PM CDT [facility] Comment: Cholesterol, Total Reference Ranges Desirable <200 mg/dL Borderline 200-239 mg/dL High >=240 mg/dL TRIGLYCERIDES 70 <150 mg/dL 08/22/2023 6:31 PM CDT [facility] HDL CHOLESTEROL 62 >40 mg/dL 6:31 PM CDT [facility] NON-HDL CHOLESTEROL 184(H) <145 mg/dl 08/22/2023 6:31 PM CDT [facility] CHOL/HDL RATIO 3.97 <4.50 08/22/2023 6:31 PM CDT [facility] LDL CHOLESTEROL 170(H) <=130 mg/dL 08/22/2023 6:31 PM CDT [facility] VLDL CHOLESTEROL 14 <=30 mg/dL 08/22/2023 6:31 PM CDT [facility] PROVIDER ORDERED STATUS RANDOM 08/22/2023 6:31 PM CDT [facility] Blood BLOOD SPECIMEN / Unknown Venipuncture / Unknown 08/22/2023 9:25 AM CDT 08/22/2023 9:25 AM CDT us Maranda Borja MD CHEMISTRY Final Resul t [facility] [address] [place] [address], * ANTI HCV (01/01/2022 8:55 AM CDT) HEPATITIS C ANTIBODY Non-React jesenia Non-React jesenia 01/02/2022 5:36 AM CDT [facility] Comment:Antibodies to HCV no t detected; does not exclude the possibility of exposure to HCV. Blood BLOOD SPECIMEN / Unknown Venipuncture / Unknown 01/01/2022 8:55 AM CDT 01/01/2022 8:56 AM CDT us Antonieta Stern DO SEND OUTS Final Result [facility] [address] [place] [id number], * COLONOSCOPY SCREENING (11/13/2018 12:00 PM CDT) us Nura Caban MD GI PROCEDURE ORD Final Res ult from Last 3 Months or Most Recently Relevant to Health Maintenance Insurance [facility] NON-OR-ITS [facility] [employer] INS [employer] Advance Directives * [...] 7:11 AM 08/20/2011 2:05 AM Care Teams Deep Tissue Massage Therapist Relationship Specialty Start Date End Date Cezar Esparza MD [address] [place] [address] PCP - General Family Practice 01/10/19 Jon Irene MD [address] [place] [address] Rheumatology 03/01/11 Soraida Marion MD [address] [place] [address] Pulmonology Pulmonary Medicine 04/09/14 Alexsander Quick [address] [place] [address] Rheumatology Rheumatology 06/06/14
--- OUTSIDE RECORDS SUMMARY | 2024-12-02 01:12 | XMS_ITS | Encounter Summary ---
Author Organization [facility] Address [address] [place] [address] Care Team Providers Care Red Leader Name Role Phone Unavailable Primary Care Provider Unavailabl e Encounter Details Date Type Department Care Team (Late st Contact Info) Description 08/16/2008 Historical Ophthalmology RST OPH Gary Wellington M.D. 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
[2024-12-02 01:14] VITALS: BP 136/86; PULSE 89; RESP 18; TEMP 36.8; O2SAT 99; BMI 36.5
--- NOTE | 2024-12-02 01:20 | ED.GENADULT ---
HPI - General Adult General Chief complaint: Skin/Abscess/Foreign Body Stated complaint: rash Time Seen by Provider: 12/02/24 01:20 History of Present Illness HPI narrative: CC: Generalized Rash pt. was seen here on Tuesday with same symptoms. was prescribed prednisone and was instructed to f/u with dermatology. pt. states rash has been the same. denies shortness of breath, trouble breathing, tongue/ lip swelling. 54-year-old man presenting to the emergency department with concern of rash Flared recently. Had been diagnosed after biopsy as an atopic dermatitis. Seen here with most recent flare 3 days ago initiated on a course of prednisone. Did receive a dose in the emergency department. Thought things were improving some until today. Find himself scratching. Does have a history of UVB? light therapy as well. Sounds as though this rash typically is flared by sun exposure. Little worried is anticipating a big vacation at the end of December. Will be seeing Dermatology again at that time. Tonight though itching and joint pain came back more intensely. Such that he was crying with this ?pain?. Usually Benadryl would knock him out. He did have some hydroxyzine available in took 1 of those. Did not seem to do anything. More remotely received a diagnosis of ankylosing spondylitis and did test positive for HLA B27, but on 2nd opinion after years of immunotherapy, thought not actually have this. Does take sulfasalazine an labs are monitored including liver. Last checked this spring and noted to be normal including liver. Inflammatory markers apparently historically have been just little bit high. Related Data Home Medications ?Medication ?Instructions ?Recorded ?Confirmed albuterol sulfate 90 mcg/actuation 1 inh inhalation ONCE 11/06/21 12/02/24 aerosol inhaler cetirizine 10 mg capsule (All Day 10 mg PO QDAY PRN 11/06/21 12/02/24 Allergy (cetirizine)) fluticasone 250 mcg-salmeterol 50 1 inh inhalation BID 11/06/21 12/02/24 mcg/dose blistr powdr for inhalation (Advair Diskus) sulfasalazine 500 mg tablet 0.5 g PO QDAY 11/06/21 12/02/24 zafirlukast 10 mg tablet 20 mg PO BID 11/06/21 12/02/24 ipratropium 0.5 mg-albuterol 3 mg 3 ml inhalation Q6H PRN 09/08/22 12/02/24 (2.5 mg base)/3 mL nebulization soln fluconazole 200 mg tablet 200 mg PO DAILY 02/26/23 04/09/24 Previous Rx's ?Medication ?Instructions ?Recorded pantoprazole 40 mg tablet,delayed 40 mg PO DAILY #20 tabs 08/30/22 release (Protonix) Allergies Allergy/AdvReac Type Severity Reaction Status Date / Time zolpidem Allergy Severe Verified 12/02/24 01:17 cefuroxime Allergy Intermediate Diarrhea Verified 12/02/24 01:17 fluorometholone Allergy Intermediate Diarrhea Verified 12/02/24 01:17 banana Allergy Mild Verified 12/02/24 01:17 clavulanic acid Allergy Mild Verified 12/02/24 01:17 tetracycline Allergy Mild Verified 12/02/24 01:17 dragon fruit Allergy Verified 12/02/24 01:17 kiwi Allergy Verified 12/02/24 01:17 Review of Systems Status of ROS: Reports: 6 or more systems reviewed and unremarkable except as noted in History and below [facility] Medical History Sore throat ?J02.9 - Acute pharyngitis, unspecified (ICD-10) Social History Smoking Status: Never smoker Do you use any of these nicotine containing products: None Second hand tobacco smoke exposure: No How often do you have a drink containing alcohol: monthly or less How many standard drinks containing alcohol do you have on a typical day: 1 or 2 How often do you have six or more drinks on one occasion: Never AUDIT-C Alcohol total score: 1 Non-prescribed substance use: denies use service: No Exam Narrative: Exam Narrative: Pleasant. NAD. Does seem a little uncomfortable though. Breathing easily. No stridor. Lungs are clear. Oropharynx is unremarkable. Heart in regular rate and rhythm without murmur rub or gallop. Particularly over the lower extremities but fairly broadly, diffusely there is a faintly erythematous macular papular rash. Scars consistent with surgical excision/biopsy on the back. I do not see joint swelling/erythema specifically. Const: Vital Signs, click to edit/add: Vital Signs - 24 hr 12/02/24 01:14 Temperature 98.2 F Pulse Rate [Right Pulse Oximeter] 89 Respiratory Rate 18 Blood Pressure [Ri ght Upper Arm] 136/86 Pulse Oximetry 99 Oxygen Delivery Me thod Room Air Documenting provider has reviewed patient's vital signs: yes Course Vital Signs Vital signs: Initial Vital Signs Temperature 98.2 F 12/02/24 01:14 Temperature Source Temporal Artery Scan 12/02/24 01:14 Pulse Rate 89 12/02/24 01:14 Respiratory Rate 18 12/02/24 01:14 Blood Pressure 136/86 12/02/24 01:14 Blood Pressure Mean 102 12/02/24 01:14 Blood Pressure Position Sitting 12/02/24 01:14 Pulse Oximetry 99 12/02/24 01:14 Oxygen Delivery Method Room Air 12/02/24 01:14 Vital Signs Temperature 98.2 F 12/02/24 01:14 Pulse Rate 89 12/02/24 01:14 Respiratory Rate 18 12/02/24 01:14 Blood Pressure 136/86 12/02/24 01:14 Pulse Oximetry 99 12/02/24 01:14 Oxygen Delivery Method Room Air 12/02/24 01:14 Temperature 98.2 F 12/02/24 02:34 Pulse Rate 85 12/02/24 02:34 Respiratory Rate 18 12/02/24 02:34 Blood Pressure 132/71 12/02/24 02:34 Pulse Oximetry 99 12/02/24 02:33 Oxygen Delivery Method Room Air 12/02/24 02:33 Medical Decision Making MDM Narrative Medical decision making narrative: Biopsy confirmed dermatitis. Already has prednisone. I think will need to focus more on symptom relief and try to help avoid scratching/exacerbating. I am not sure that I can dig into other etiology of this rash here in the emergency department. No red flag symptoms to suggest evolution of anaphylaxis otherwise. Does have hydroxyzine available. Probably could take some more of this if needed. See patient discharge plan for further discussion Stay well-hydrated. You can certainly take 50 mg of your hydroxyzine in a singular dose if needed. In the agitation and therefore discomfort I think can also be helped by something like lorazepam as the prednisone hopefully continues to work in the background. And prescribing lorazepam from [facility] for you. This can be combined with any of your other medications. I would message your primary care physician and tank builder and erector about what you are experiencing in particular as a histological diagnosis has now been made at least related to the rash. I hope you are able to have a great vacation. Medical Records Medical records reviewed: Yes I reviewed the patient's medical records Discharge Plan Discharge Clinical Impression: Dermatitis Patient Disposition: Home, Self-Care Condition: Stable Additional Instructions: Stay well-hydrated. You can certainly take 50 mg of your hydroxyzine in a singular dose if needed. In the agitation and therefore discomfort I think can also be helped by something like lorazepam as the prednisone hopefully continues to work in the background. And prescribing lorazepam from [facility] for you. This can be combined with any of your other medications. I would message your primary care physician and tank builder and erector about what you are experiencing in particular as a histological diagnosis has now been made at least related to the rash. I hope you are able to have a great vacation. Prescriptions: No Action fluticasone propion-salmeterol [Advair Diskus] 250-50 mcg/dose blister with device 1 inh inhalation BID zafirlukast 10 mg tablet 20 mg PO BID Rx Instructions: must be taken on empty stomach, at least 1 hr before or 2 hrs after a meal/food sulfasalazine 500 mg tablet 0.5 g PO QDAY Rx Instructions: give with food (meal/snack) albuterol sulfate 90 mcg/actuation HFA aerosol inhaler 1 inh inhalation ONCE All Day Allergy (cetirizine) 10 mg capsule 10 mg PO QDAY PRN fluconazole 200 mg tablet 200 mg PO DAILY ipratropium-albuterol 0.5 mg-3 mg(2.5 mg base)/3 mL solution for nebulization 3 ml inhalation Q6H PRN pantoprazole [Protonix] 40 mg tablet,delayed release (DR/EC) 40 mg PO DAILY Qty: 20 2RF Follow Up/Referrals: Cezar Esparza MD [Primary Care Provider, Family Practice] Stand Alone Forms: [facility] Info Instructions
--- OUTSIDE RECORDS SUMMARY | 2024-12-02 02:16 | XMS_ITS ---
Author Name Interface, [id number] lity Address [address] [place] [address] Oncology Address [address] [place] [address] Allergies and Adverse Reactions Plan Reason for Visit Encounters Immunizations Medications Problems Vital Signs
--- OUTSIDE RECORDS SUMMARY | 2024-12-02 02:21 | XMS_ITS | CCD ---
Author Name Interface, P2Rpeslal lity Address [address] [place] [address] Organization [facility] Address [address] [place] [address] Care Team Providers Care Animal Ride Attendant Name Role Phone Bennett LUCIA, Aarti Unavailable Unavai lable Allergies and Adverse Reactions Reason for Visit Medications Problems Social History
[2024-12-02 02:33] VITALS: BP 132/71; PULSE 85; RESP 18; TEMP 36.8; O2SAT 99
[2024-12-02 02:34] VITALS: BP 132/71; PULSE 85; RESP 18; TEMP 36.8
== END 2024-12-02 02:34 | disposition home or self-care (01) ==
PROVIDERS: Emergency Provider Family Medicine; PCP Family Medicine
DX: L30.9 Dermatitis, unspecified (principal)
CPT/HCPCS: 99283; 99284

== ENCOUNTER 2025-02-07 16:51 | Emergency (ER) | payer OTHER, SELFPAY ==
--- OUTSIDE RECORDS SUMMARY | 2025-02-07 16:53 | XMS_ITS | Clinical Summary ---
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 Gender Identity Not on file Sexual Orientation [...] 01/01/2023 01/01/2022 PHQ-2 (once per calendar year) 2024 COVID-19 VACCINE ( season) 2024 01/18/2021, 07/19/2020, 06/28/2020 INFLUENZA VACCINE (#1) 2024 , 12/31/2020, 12/31/2020, Additional history exists DTAP/TDAP/TD VACCINE (4 - Td or Tdap) 09/13/2031 09/12/2021, 01/03/2012, 05/28/2005, Additional history exists PNEUMOCOCCAL VACCINE 50+ YEARS Completed 01/01/2022, 06/06/2014 ZOSTER VACCINE Completed 01/01/2022, 10/23/2020 HPV VACCINE (No Doses Required) Completed MENINGITIS VACCINE Aged Out No longer eligible based on patient's age to complete this topic Insurance [facility] Care Teams Machinery Rigger Relationship Specialty Start Date End Date Cezar Esparza [facility]ly [facility] [place] [address] PCP - General Family Medicine 02/11/21 Aspen Weiner APRN STAND UP COMEDIAN [address] [place] [address] [id number] [address] Nurse Practitioner Neurology 02/11/21
--- OUTSIDE RECORDS SUMMARY | 2025-02-07 16:53 | XMS_ITS | Encounter Summary ---
Author Organization [facility] Address [address] [place] [address] Care Team Providers Care Artifacts Conservator Name Role Phone Unavailable Primary Care Provider Unavailabl e Encounter Details Date Type Department Care Team (Late st Contact Info) Description 06/26/2008 Historical Ophthalmology [facility] Gary Wellington M.D. 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 Recheck 3 weeks. CDM Reports - [facility] Id: [id number] Status: Fnl documented in this encounter Plan of Treatment Not on file documented as of this encounter Visit Diagnoses Not on filedocumented in this encounter
--- OUTSIDE RECORDS SUMMARY | 2025-02-07 16:53 | XMS_ITS | Patient Health Record ---
Author Organization [facility] Address [address] [place] [address] [address] [place] [address] Care Team Providers Care Carpentry Teacher Name Role Phone No Primary, Care Primary Care Provider Unavailab Jon Hernandez Unavailable [phone] Carole Stern DO Unavailable Unavailable Allergies No Known Allergies Reason For Referral No Information Medications Medication SIG (Take, Route, Frequency, Duration) Notes Start Date End Date Status Cyclobenzaprine HCl 10 MG Tablet 1 tablet as needed Orally prn Active Advair Diskus 250-50 MCG/DOS E Aerosol Powder Breath Activated 1 puff Inhalation Twice a day Active Ventolin HFA 108 (90 Base) MCG/ACT Aerosol Solution 1 puff as needed Inhalation prn Active Omeprazole 20 MG Capsule Delayed Release 1 capsule 30 minutes before morning meal Orally Once a day Active Social History Social History Drugs/Alcohol: Social Info Question Answer Notes Alcohol Screen Did you have a drink containing alcohol in the past year? 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[employer] Problems Problem Type SNOMED Code ICD Code Onset Dates Problem Status W/U Status Risk Notes Problem Tension-type headache (408641371) Tension-type headache, unspecified, not intractable (G44.209) Active confirmed Problem Backache (219446656) Dorsalgia, unspecified (M54.9) Active confirmed Problem Segmental and somatic dysfunction (530900125) Segmental and somatic dysfunction of cervical region (M99.01) Active confirmed Problem Neck pain (11911770) Neck pain (M54.2) Active confirmed Plan Of Treatment No Information Insurance Providers Payer Name Payer Address Payer Phone Subscriber Number Group Number Insured Name Patient Relationship to Insured Coverage Start Date Coverage End Date [facility] [address] [address] [place] [address] [phone] [id number] [phone] [id number] Susana Hoff Spouse - patient is the spouse of the insured 1 Medical (General) History Medical History History ICD Code General Past Medical History : Asthma,Stomach Ulcers,Arthritis,Headaches,Cancer,Acid Reflux,Sleep Apnea Surgical History Surgery Date(Month/Year) Left ear removal melanoma 03/30 Gallbladder 10/28
--- OUTSIDE RECORDS SUMMARY | 2025-02-07 16:54 | XMS_ITS | Clinical Summary ---
Author Organization [facility] Address [address] [place] [address] Care Team Providers Care Friend Of The Court Name Role Phone Unavailable Primary Care Provider Unavailabl e Source Comments Patient records contain information from all sites at [facility]. For routine questions regarding patient records, call [phone] during business hours, M-F 8:00 AM - 5:00 PM Central Time. Record requests for emergency care only can be directed to [phone] at any time.[facility] Allergies Active Allergy Reactions Criticality Noted [...] Tobacco: Never Tobacco Cessation:Counseling Given: Not Answered [facility] Utilities Answer Date Recorded In the past [...] your living situation today? I have a [facility] place to live 06/26/2023 Education Answer Date Recorded What is the highest level of school you have completed or the highest degree you have received? 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 LAB BLOOD ADD-ON Final Result [facility] [address] [place] [address], [place] DTL [facility] [address] [place] [address] * (ABNORMAL) Lipid Panel (10/29/2016 7:05 AM CDT) Cholesterol, Total 218(H) SeeComment MG/DL [facility] Comment: REFERENCE VALUE Desirable: < 200 Borderline high: 200 - 239 High: > or = 240 Triglycerides 76 SeeComment MG/DL [facility] Comment: REFERENCE VALUE Normal: <150 Borderline high: 150-199 High: 200-499 Very high: > or =500 Cholesterol, Non-HDL, Calculated 163(H) SeeComment MG/DL [facility] Comment: REFERENCE VALUE Desirable: <130 Above Desirable: 130-159 Borderline high: 160-189 High: 190-219 Very high: > or =220 Cholesterol, HDL, S 55 >=40 MG/DL [facility] [place] Calculated LDL 148(H) SeeComment MG/DL [facility] [place] Comment: REFERENCE VALUE Desirable: <100 Above Desirable: 100-129 Borderline high: 130-159 High: 160-189 Very high: > or =190 10/29/2016 7:05 AM CDT 10/29/2016 7:05 AM CDT us Gary Lind M.D. LAB BLOOD ADD-ON Final Res ult [facility] [address] from Last 3 Months or Most Recently Relevant to Health Maintenance Insurance [facility] [[email or web address]] [place] [address]
--- OUTSIDE RECORDS SUMMARY | 2025-02-07 16:54 | XMS_ITS | Encounter Summary ---
Author Organization [facility] Address [address] [place] [address] Care Team Providers Care Gauger Chief Name Role Phone Unavailable Primary Care Provider Unavailabl e Encounter Details Date Type Department Care Team (Late st Contact Info) Description 02/04/2009 Historical Ophthalmology [facility] Gary Wellington M.D. 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 CDM Reports - EYEGEN Id: [id number] Status: Fnl documented in this encounter Plan of Treatment Not on file documented as of this encounter Visit Diagnoses Not on filedocumented in this encounter
--- OUTSIDE RECORDS SUMMARY | 2025-02-07 16:54 | XMS_ITS | Encounter Summary ---
Author Organization [facility] Address [address] [place] [address] Care Team Providers Care Director Of Family Service Center Name Role Phone Unavailable Primary Care Provider Unavailabl e Encounter Details Date Type Department Care Team (Late st Contact Info) Description 12/30/2008 Historical Ophthalmology [facility] Gary Wellington M.D. 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
--- OUTSIDE RECORDS SUMMARY | 2025-02-07 16:54 | XMS_ITS | Encounter Summary ---
Author Organization [facility] Address [address] [place] [address] Care Team Providers Care Life Skills Coordinator Volunteer Name Role Phone Unavailable Primary Care Provider Unavailabl e Encounter Details Date Type Department Care Team (Late st Contact Info) Description 08/16/2008 Historical Ophthalmology [facility] Gary Wellington M.D. 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
--- OUTSIDE RECORDS SUMMARY | 2025-02-07 16:54 | XMS_ITS | Encounter Summary ---
Author Organization [facility] Address [address] [place] [address] Care Team Providers Care Mottler Machine Feeder Name Role Phone Unavailable Primary Care Provider Unavailabl e Encounter Details Date Type Department Care Team (Late st Contact Info) Description 11/15/2008 Historical Ophthalmology [facility] Gary Wellington M.D. 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 He sees his certified corporate travel executive next week for consideration of methorexate. In the meantime we will continue current Rx, recheck 6 weeks. DIAGNOSIS #1 HLA-B27 positive uveitis left eye CDM Reports - EYEGEN Id: [id number] Status: Fnl documented in this encounter Plan of Treatment Not on file documented as of this encounter Visit Diagnoses Not on filedocumented in this encounter
--- OUTSIDE RECORDS SUMMARY | 2025-02-07 16:54 | XMS_ITS | Encounter Summary ---
Author Organization [facility] Address [address] [place] [address] Care Team Providers Care Motor Driver Name Role Phone Unavailable Primary Care Provider Unavailabl e Encounter Details Date Type Department Care Team (Late st Contact Info) Description 09/06/2008 Historical Ophthalmology [facility] Gary Wellington M.D. 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
--- OUTSIDE RECORDS SUMMARY | 2025-02-07 16:54 | XMS_ITS | Encounter Summary ---
Author Organization [facility] Address [address] [place] [address] Care Team Providers Care Composite Technician Name Role Phone Unavailable Primary Care Provider Unavailabl e Encounter Details Date Type Department Care Team (Late st Contact Info) Description 07/09/2008 Historical Ophthalmology [facility] Gary Wellington M.D. 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
--- OUTSIDE RECORDS SUMMARY | 2025-02-07 16:54 | XMS_ITS | CCD ---
Author Name Interface, [id number] lity Address [address] [place] [address] [address] [address] Organization [facility] Address [address] [facility] [address] [address] Care Team Providers Care Metalizing Machine Operator Automatic Name Role Phone Bennett LUCIA, Aarti Unavailable Unavai lable Allergies and Adverse Reactions Medication/Group Name Reaction Severity Date zolpidem 03/03/2020 cefuroxime 09/29/2020 tetracycline 09/29/2020 fluorometholone 09/29/2020 Ambien 09/29/2020 Reason for Visit RC - 6 MOS LT EAR JAMES - 6 MOS LT EAR JAMES Medications Date Name Route Dose Frequency Instructions Start Date End Date Status Fill Status Indication 03/03 Omeprazole Oral Delayed Release Capsule Take 1 cap by mouth once daily active 03/03 Famotidine Oral Take 1 tab by oral route PRN active 03/03 Sulfasalaz ine Oral take 1 tab by mouth once daily active 03/03 Albuterol HFA Inhaler 90 mcg/actuat ion active 03/03 Zafirlukas t Oral Take 1 tab by oral route twice daily active 03/03 Ibuprofen Oral PRN active 03/03 Fluticason e-Salmeter ol Inhaler 250 mcg-50 mcg/Dose 1 puff by oral route twice daily active Problems Diagnosis Status Date of Diagnosis Resolution Date Melanoma Active 02/11/2020 Social History Date Name Value 03/03/2020 Sex Male
--- OUTSIDE RECORDS SUMMARY | 2025-02-07 16:54 | XMS_ITS | Encounter Summary ---
Author Organization [facility] Address [address] [place] [address] Care Team Providers Care Analysis Specialist Name Role Phone Unavailable Primary Care Provider Unavailabl e Encounter Details Date Type Department Care Team (Late st Contact Info) Description 03/14/2009 Historical Ophthalmology RST OPH Gary Wellington M.D. 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
--- OUTSIDE RECORDS SUMMARY | 2025-02-07 16:54 | XMS_ITS ---
Author Name Interface, [id number] lity Address [address] [place] [address] [address] [place] [address] Organization [facility] Address [address] [facility] [address] [place] [address] Support Name Relationship Address Phone Susana Hoff Spouse Unknown Unavailable Allergies and Adverse Reactions Medication/Group Name Reaction [...] Instructions Refusal Reason Stat us Covid-19 vaccine ([employer]) Completed Covid-19 vaccine ([employer]) Completed Medications Date Name Route Dose Frequency Instructions Start Date End Date Status Fill Status Indication 03/03 Zafirlukas t Oral Take 1 tab by oral route twice daily active 03/03 Omeprazole Oral Delayed Release Capsule Take 1 cap by mouth once daily active 03/03 Albuterol HFA Inhaler 90 mcg/actuat ion active 03/03 Famotidine Oral Take 1 tab by oral route PRN active 03/03 Fluticason e-Salmeter ol Inhaler 250 mcg-50 mcg/Dose 1 puff by oral route twice daily active 03/03 Sulfasalaz ine Oral take 1 tab by mouth once daily active 03/03 Ibuprofen Oral PRN active Problems Diagnosis Status Date of Diagnosis Resolution Date Melanoma Active 02/11/2020 Vital Signs Date Type Value 09/29/2020 Heart Beat 101.00 09/29/2020 Respiratory Rate 16.00 09/29/2020 Oxygen Saturation 96.00 09/29/2020 Intravascular Systolic 138 09/29/2020 Intravascular Diastolic 86 09/29/2020 BSA 2.24 09/29/2020 Weight 248.20 09/29/2020 Height 68.00 09/29/2020 BMI 37.74 09/29/2020 Pain Scale 0.00
--- OUTSIDE RECORDS SUMMARY | 2025-02-07 16:54 | XMS_ITS | Encounter Summary ---
Author Organization [facility] Address [address] [place] [address] Care Team Providers Care Customer Service Supervisor Name Role Phone Unavailable Primary Care Provider Unavailabl e Encounter Details Date Type Department Care Team (Late st Contact Info) Description 07/23/2008 Historical Ophthalmology RST OPH Gary Wellington M.D. 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 - 07/23/2008 8:32 AM CDT Eye General CHIEF COMPLAINT Iritis left eye follow up HISTORY OF PRESENT ILLNESS This 37 year old male returns for a follow for Iritis left eye. Patient notes improvement in vision since last visit. He denies flashes, diplopia, Patient [...] left eye CDM Reports - EYEGEN Id: [id number] Status: Fnl documented in this encounter Plan of Treatment Not on file documented as of this encounter Visit Diagnoses Not on filedocumented in this encounter
--- OUTSIDE RECORDS SUMMARY | 2025-02-07 16:54 | XMS_ITS | Clinical Summary ---
Author Organization [facility] Address [address] [place] [address] Care Team Providers Care Replenishment Merchandising Associate Name Role Phone Jon Irene MD Unavailable [phone] Soraida Marion MD Unavailable [phone] Alexsander Quick Unavailable [phone] Cezar Esparza MD Primary Care Provider Allergies Active Allergy Reactions Criticality Noted Date Comments Zolpidem Intolerance-Can't Take 07/21/2006 headaches Banana Angioedema 10/26/2016 scratchy throat, swelling in mouth Cefuroxime Diarrhea 03/30/2008 Has since tolerated cefazolin & cefzil Cephalexin Diarrhea 04/17/2024 Clavulanic Acid Stomach Upset,Nausea Only,*Unknown Low 07/08/2019 Dragon Fruit *Unknown 11/11/2024 Fluconazole Edema,Itching,Rash High 03/01/2023 Fluorometholone Edema,Other - Describe In Comment Field Medium 05/23/2008 Comment: edema, Comment: edema Kiwi *Unknown 11/11/2024 Latex Other - Describe In Comment Field [...] sprayIndication s:Allergy, unspecified, initial encounter Inhale 1 [place] into both nostrils 2 times daily. For [...] affected area(s) two times daily. 45 g 08/02/19 25 Active triamcinolone 0.1 % creamIndication s:Chronic eczema APPLY TOPICALLY TO AFFECTED AREAS THREE TIMES DAILY NEEDED 454 g 10/14/19 25 Active fluticasone fur-umeclidiniu m-vilanterol (Trelegy Ellipta) 100-62.5-25 mcg inhalerIndicati ons:Asthma, unspecified asthma severity, unspecified whether complicated, unspecified whether persistent (HC) INHALE 1 PUFF BY MOUTH DAILY 180 Each 11/29/19 25 Active tacrolimus (PROTOPIC) 0.1 % ointment 10/05/19 25 Active buPROPion (WELLBUTRIN XL) 150 mg Extended-Releas e tabletIndicatio ns:Moderate major depression (HC) Take 1 Tablet (150 mg) by mouth once daily in the morning. 90 Tablet 3 12/22/19 25 Active zafirlukast 10 mg tabletIndicatio ns:Allergy, unspecified, initial encounter TAKE ONE TABLET BY MOUTH TWICE DAILY AFTER MEALS 180 Tablet 01/11/20 25 Active predniSONE (DELTASONE) 10 mg tabletIndicatio ns:Atopic dermatitis, unspecified type,Chronic pruritic rash in adult Take 4 Tablets (40 mg) by mouth once daily with a meal for 3 days, THEN 3 Tablets (30 mg) once daily with a meal for 3 days, THEN 2 Tablets (20 mg) once daily with a meal for 3 days, THEN 1 Tablet (10 mg) once daily with a meal for 3 days. 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 The patient was on sulfasalazine for ankylosing spondylitis at one point. He also has a history of HLA-B27 positivity and spondyloarthritis, and has reported joint problems and acute epigastric pain, nausea, and mild diarrhea. On meds: budesonide, clobetasol, fluticasone / salmeterol, mometasone furoate, sulfasalazine, triamcinolone acetonide Recent encounter dx: 02/16/22: [facility] 02/03/22: Appointment - [facility] 02/03/22: Appointment - [facility] 01/06/12: Appointment - [facility] 11/13/09: Appointment - [facility] Recent notes: 05/14/08: Progress Notes by Herber Holley MD ... [+] Had blood work done and has signs of rheumatoid arthritis. Atopic dermatitis 09/17/2024 Supraventricular tachycardia 05/11/2023 Polyp of duodenum 04/13/2023 Subacromial bursitis of right shoulder joint AC [...] Noted Date Diagnosed Date Resolved Date Malignant neoplasm 12/21/2024 5 Overview (12/21/2024): AI Summary: As of 08/01/24: The patient has a history of malignant melanoma of the left ear, with the most recent mention in 11/08/2022. On 03/11/2020, a wide excision of the left ear melanoma with sentinel lymph node biopsies was performed, revealing residual malignant melanoma (0.4 mm depth) with widely free margins. The patient denied family history of pancreatic disease. 08/31/23: WBC 7.9 thou/cu mm 08/31/23: Hgb 14.6 g/dL 08/22/23: K 4.5 mmol/L 06/14/24: Plt 341 k[iU]/mL 06/14/24: Total Protein 7.6 g/dL 06/14/24: Ca 9.4 mg/dL 01/01/22: PSA 0.58 ng/mL Recent encounter dx: 01/01/22: Appointment - [facility] 09/29/20: 09/29/2020 Melanoma (from [facility]) 03/11/20: Discharge - [facility], [place] / OR 03/05/20: Appointment - [facility] 03/02/20: Support OP Encounter - [facility] Medical Imaging Recent studies: 03/11/20: NM LYMPHOSCINTIGRAPHY by Aarti Guajardo MD, Elida Ordonez MD ... [+] INDICATION: Melanoma of the left ear. ... [-] Nuclear medicine lymphoscintigraphy performed with imaging of the head and neck after the intradermal injection of 550 microcuries of technetium-99m Lymphoseek about the site of melanoma. ... [+] Using sterile technique and local anesthesia, 550 microcuries of technetium-99m Lymphoseek was injected intradermally about the site of melanoma on the left ear. Recent notes: 08/01/24: Progress Notes by KERRY Obrien ... [+] ? Melanoma (HC) 02/202011/08/22: Progress Notes by Hortencia Rivera MD ... [+] ? 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 [+] Left ear - melanoma / removed 02/03/22: Progress Notes - Nurse Note: - Nursing Notes by WILBUR Mendoza ... [+] ? Malignant melanoma of left ear (HC) C43.22 01/01/22: Progress Notes by Antonieta Stern DO ... [+] He dealt with melanoma over his left ear in 2019. ... [+] Malignant melanoma of left ear (HC) C43.22 04/13/21: Progress Notes by Petros Huerta OD ... [+] ? Malignant melanoma of skin of ear (HC) C43.20 Malignant melanoma of left ear 01/01/2022 04/16/2022 [...] Encounters Date Type Department Care Team Description 01/29/2025 7:05 AM CDT Office Visit [facility] [address] [place] [address] Gracia Carias PA Follow Up (High BP, itchy body rash, spots on legs ) 01/28/2025 Travel 01/09/2025 Refill [facility] [address] [place] [address] Cezar Esparza MD Refill Request (Zafirlukast) 12/21/2024 7:15 AM CDT Office Visit [facility] [address] [place] [address] Antonieta Stern DO Physical (54 year old ); Derm Problem (Follow up on derm - has been going to [facility] ) 12/20/2024 Travel 12/03/2024 Refill [facility] [address] [place] [address] Cezar Esparza MD Refill Request (Triamcinolone) 11/26/2024 Refill [facility] [address] [place] [address] Chucky Waters MBBS Refill Request (Trelegy Ellipta) 11/11/2024 Orders Only [facility] Scanner 1 scan: (1-Ord) [facility], CT ANGIO HEAD, 11/11/2024 11/11/2024 Orders Only [facility] Scanner 1 scan: (1-Ord) [place], CT ANGIO NECK, 11/11/2024 11/11/2024 Orders Only [facility] Scanner 1 scan: (1-Ord) [place], CT HEAD/BRAIN W/O CON, 11/11/2024 from Last 3 Months Immunizations Immunization Administration Dates Next Due AMB Influenza, IIV3 (Age >=3 years)(Flu Clinic Only) 01/13/2009 AMB Influenza, IIV4 PF (=>6 mos Flulaval,Fluzone Fluarix)(Flu Clinic Only) 01/08/2020 COVID-19 vaccine (Exeger [place] AB 30mcg/0.3mL) PF, MDV 07/19/2020,06/28/2020 Hepatitis A (Adult) [...] PHQ-2 Answer Date Recorded PHQ-2 TOTAL SCORE 2 12/21/2024 Social Connections Answer Date Recorded Do you often feel lonely or isolated from those around you? 0 05/14/2024 Alcohol Use Answer Date Recorded How often do you have a drink containing alcohol ? 1 01/29/2025 How many drinks containing a lcohol do you have on a typical day when you are drinking? 1 01/29/2025 How often do you have five or more drinks on one occasion? 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2 kg (249 lb 8 oz) 01/29/2025 7:01 AM CDT Height 171.7 cm (5' 7.6) 01/29/2025 7:01 AM CDT Body Mass Index 38.39 01/29/2025 7:01 AM CDT Plan of Treatment Health Maintenance Due Date Last Done Comments HIV for age 15-65 1985 Hepatitis B series for 19+ ( 1 of 3 - 19+ 3-dose series) 1989 01/20/2005, 08/19/2004, 07/08/2004 Influenza Vaccine (#1) 2024 , 12/27/2022, 12/27/2022, Additional history exists Depression screening for age 12+ 12/21/2025 12/21/2024, 09/19/2024, 08/22/2023, Additional history exists BMI (ht and wt on same day) for age 18+ 01/29/2026 01/29/2025, 12/21/2024, 02/28/2024, Additional history exists Colonoscopy through age 75 11/13/202811/13, 11/13/2018, 11/13/2018, Additional history exists Lipids for age 45-75 12/21/2029 12/21/2024, 08/22/2023, 01/01/2022, Additional history exists Tetanus booster 09/13/2031 09/12/2021, 12/11, 01/03/2012, Additional history exists RSV vaccine for adults or (1 - 1-dose 75+ series) 2045 Hepatitis C screening for ag e 18-79 Completed 01/01/2022 Pneumococcal series for age 50+ Completed , 06/06/2014 Zoster (shingles) series for age 50+ Completed 01/01/2022, 10/23/2020 Procedures Procedure Name Priority Date/Time Associated Diagnosis Comments CYCLIC CITRULLINE PEPTIDE Routine 12/21/2024 8:29 AM CDT Atopic dermatitis, unspecified type C-REACTIVE PROTEIN Routine 12/21/2024 8: 29 AM CDT Atopic dermatitis, unspecified type SEDIMENTATION RATE Routine 12/21/2024 8: 29 AM CDT Atopic dermatitis, unspecified type HEMOGLOBIN A1C MONITORING (POCT) Routine 12/21/2024 8:29 AM CDT Annual physical exam Prediabetes LIPID PANEL W REFLEX MEASURED LDL Routine 12/21/2024 8:29 AM CDT Annual physical exam SCAN-CT INTERPRETATION 5 12:00 AM CDT SCAN-CT INTERPRETATION 5 12:00 AM CDT SCAN-CT INTERPRETATION 5 12:00 AM CDT ANTI HCV Routine 01/01/2022 8:55 AM CDT Need for hepatitis C screening test COLONOSCOPY SCREENING Routine 11/13/2018 12:00 PM CDT Epigastric pain Generalized abdominal pain from Last 3 Months or Most Recently Relevant to Health Maintenance Results * SEDIMENTATION RATE (12/21/2024 8:29 AM CDT) SED RATE BY MODIFIED DARYL 9 < OR = 20 mm/h 12/22/2024 5:00 AM CDT [facility] Blood BLOOD SPECIMEN / Unknown [facility] / Unknown 12/21/2024 8:29 AM CDT 12/21/2024 8:29 AM CDT us Antonieta Stern DO HEMATOLOGY Final Result [facility] [address] [place] [address], * (ABNORMAL) LIPID PANEL W REFLEX MEASURED LDL (12/21/2024 8:29 AM CDT) Pathologist [facility] CHOLESTEROL, TOTAL 273(H) <200 mg/dL 12/22/2024 3:34 AM CDT [facility] TRIGLYCERIDES 74 <150 mg/dL 12/22/2024 3:34 AM CDT [facility] HDL CHOLESTEROL 80 > OR = 40 mg/dL 12/22/2024 3:34 AM CDT [facility] NON HDL CHOLESTEROL 193(H) <130 mg/dL (calc) 12/22/2024 3:34 AM CDT [facility] Comment: For patients with diabetes plus 1 major ASCVD risk factor, treating to a non-HDL-C goal of <100 mg/dL (LDL-C of <70 mg/dL) is considered a therapeutic option. CHOL/HDLC RATIO 3.4 <5.0 (calc) 12/22/2024 3:34 AM CDT [facility] LDL-CHOLESTEROL 175(H) mg/dL (calc) 12/22/2024 3:34 AM CDT [facility] Comment: Reference range: <100 Desirable range <100 mg/dL for primary prevention; <70 mg/dL for patients with CHD or diabetic patients with > or = 2 CHD risk factors. LDL-C is now calculated using the Tramaine-Galindo calculation, which is a validated novel method providing better accuracy than the Friedewald equation in the estimation of LDL-C. Tramaine SS et al. NERGO. 2013;310(19): 0380-9945 (http://education.Wattage/faq/SWG191) Blood BLOOD SPECIMEN / Unknown [facility] / Unknown 12/21/2024 8:29 AM CDT 12/21/2024 8:29 AM CDT Antonieta [employer] DO CHEMISTRY Final Result Performing Organization Address [facility] Co de Phone Number [facility] [address] [phone], * CYCLIC CITRULLINE PEPTIDE (12/21/2024 8:29 AM CDT) [facility] CYCLIC CITRULLINATED PEPTIDE (CCP) AB (IGG) <16 UNITS 12/22/2024 4:08 PM CDT [facility] Comment: Reference Range Negative: <20 Weak Positive: 20-39 Moderate Positive: 40-59 Strong Positive: >59 Blood BLOOD SPECIMEN / Unknown [facility] / Unknown 12/21/2024 8:29 AM CDT 12/21/2024 8:29 AM CDT Antonieta Lowelza NATARAJAN SEND OUTS Final Result Performing Organization Address [facility] de Phone Number [facility] [address] [phone], * (ABNORMAL) C-REACTIVE PROTEIN (12/21/2024 8:29 AM CDT) [facility] C-REACTIVE PROTEIN (MG/L) 16.9(H) <8.0 mg/L 12/22/2024 3:08 PM CDT [facility] Blood BLOOD SPECIMEN / Unknown [facility] / Unknown 12/21/2024 8:29 AM CDT 12/21/2024 8:29 AM CDT Antonieta Blevinsra NATARAJAN CHEMISTRY Final Result Performing Organization Address [facility] Co de Phone Number [facility] [address] [phone], * HEMOGLOBIN A1C MONITORING (POCT) (12/21/2024 8:29 AM CDT) [facility] POC HEMOGLOBIN A1C 5.7 <6.0 % OF TOTAL HGB 12/21/2024 8:38 AM CDT [facility] Comment: Any point of care results exhibiting inconsistency with the patient's clinical status should be repeated using a different testing method. Blood BLOOD SPECIMEN / Unknown [facility] / Unknown 12/21/2024 8:29 AM CDT 12/21/2024 8:29 AM CDT us Adeobinna Stern DO CHEMISTRY Final Result [facility] [address] [place] [address], [place] [phone] [facility] [address] [place] [address], [place] [phone] * SCAN-CT INTERPRETATION (11/11/2024 12:00 AM CDT) Only the most recent of3 resultswithin the time period is included. Anatomical Region Laterality Modality Other us Scanner OTHER Final Result * ANTI HCV (01/01/2022 8:55 AM CDT) HEPATITIS C ANTIBODY Non-React jesenia Non-React jesenia 01/02/2022 5:36 AM CDT [facility] Comment:Antibodies to HCV no t detected; does not exclude the possibility of exposure to HCV. Blood BLOOD SPECIMEN / Unknown Venipuncture / Unknown 01/01/2022 8:55 AM CDT 01/01/2022 8:56 AM CDT us Antonieta Stern DO SEND OUTS Final Result [facility] [address] [place] [address], [place] * COLONOSCOPY SCREENING (11/13/2018 12:00 PM CDT) us Nura Caban MD GI PROCEDURE ORD Final Res ult from Last 3 Months or Most Recently Relevant to Health Maintenance Insurance [facility] [employer] [facility] Advance Directives * Full Code (Latest [...] 7:11 AM 08/20/2011 2:05 AM Care Teams Replenishment Merchandising Associate Relationship Specialty Start Date End Date Cezar Esparza MD [address] [place] [address] PCP - General Family Practice 01/10/19 Jon Irene MD [address] [place] [address] Rheumatology 03/01/11 Soraida Marion MD [address] [place] [address] Pulmonology Pulmonary Medicine 04/09/14 Alexsander Quick [address] [place] [address] Rheumatology Rheumatology 06/06/14
--- OUTSIDE RECORDS SUMMARY | 2025-02-07 16:54 | XMS_ITS | Encounter Summary ---
Author Organization [facility] Address [address] [place] [address] Care Team Providers Care Metal Cut Off Saw Tender Name Role Phone Unavailable Primary Care Provider Unavailabl e Encounter Details Date Type Department Care Team (Late st Contact Info) Description 07/11/2009 Historical Ophthalmology RST OPH Gary Wellington M.D. 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 I will write his strapper to give him an update on the eye status. He has been getting bloodschecked with him (Dr. Irene at [place]). DIAGNOSIS #1 HLA-B27 positive uveitis left eye CDM Reports - EYEGEN Id: [id number] Status: Fnl documented in this encounter Plan of Treatment Not on file documented as of this encounter Visit Diagnoses Not on filedocumented in this encounter
--- OUTSIDE RECORDS SUMMARY | 2025-02-07 16:54 | XMS_ITS | Encounter Summary ---
Author Organization [facility] Address [address] [place] [address] Care Team Providers Care Medical Laboratory Manager Name Role Phone Unavailable Primary Care Provider Unavailabl e Encounter Details Date Type Department Care Team (Late st Contact Info) Description 10/15/2008 Historical Ophthalmology RST OPH Gary Wellington M.D. 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 He will call with his director investment banking's name and address, I will write him with the suggestion. Continue current Rx. Recheck 1 month CDM Reports - EYEGEN Id: [id number] Status: Fnl documented in this encounter Plan of Treatment Not on file documented as of this encounter Visit Diagnoses Not on filedocumented in this encounter
[2025-02-07 16:56] VITALS: BP 171/103; PULSE 88; RESP 20; TEMP 36.3; O2SAT 97; BMI 37.6
--- NOTE | 2025-02-07 17:39 | ED.HA ---
HPI - Headache General Date Seen: 02/07/25 Chief Complaint: Headache/Migraine Stated Complaint: headache for multiple days Time Seen by Provider: 02/07/25 17:01 Source: patient Mode of arrival: ambulatory Limitations: no limitations History of Present Illness HPI Narrative: Patient is a 54-year-old male presenting to the emergency department for headache. He states the headache has been going on for the past 6 days. This is the pain waxes and wanes. Currently describes the headache as a 3/5 headache that starts in his forehead and wraps around the back of his head like he is wearing a headband. At his worst the headache is a 5/10. States the headache is currently tolerable. States he has the headaches in the past but they have never been persistent like this. He has been taking home [id number] pain medication will help much improvement in his symptoms. He has no history of cancer per sleep but there is a long history of multiple cancers in his family. States he was last seen 3 months ago for a concern of possible TIA. Imaging at that time was reassuring. Denies fevers, chills, chest pain, shortness of breath, abdominal pain, weakness, numbness, vision changes. States he feels fatigued today. Not aware of any sick contacts. Related Data Home Medications ?Medication ?Instructions ?Recorded ?Confirmed albuterol sulfate 90 mcg/actuation 1 inh inhalation ONCE 11/06/21 01/17/25 aerosol inhaler cetirizine 10 mg capsule (All Day 10 mg PO QDAY PRN 11/06/21 01/17/25 Allergy (cetirizine)) fluticasone 250 mcg-salmeterol 50 1 inh inhalation BID 11/06/21 01/17/25 mcg/dose blistr powdr for inhalation (Advair Diskus) sulfasalazine 500 mg tablet 0.5 g PO QDAY 11/06/21 01/17/25 zafirlukast 10 mg tablet 20 mg PO BID 11/06/21 01/17/25 ipratropium 0.5 mg-albuterol 3 mg 3 ml inhalation Q6H PRN 09/08/22 01/17/25 (2.5 mg base)/3 mL nebulization soln clotrimazole 1 % topical cream applic topical BID 01/17/25 01/17/25 triamcinolone acetonide 0.1 % applic topical 3XD PRN 01/17/25 01/17/25 topical cream Previous Rx's ?Medication ?Instructions ?Recorded pantoprazole 40 mg tablet,delayed 40 mg PO DAILY #20 tabs 08/30/22 release (Protonix) Allergies Allergy/AdvReac Type Severity Reaction Status Date / Time zolpidem Allergy Severe Verified 01/17/25 16:53 cefuroxime Allergy Intermediate Diarrhea Verified 01/17/25 16:53 fluorometholone Allergy Intermediate Diarrhea Verified 01/17/25 16:53 banana Allergy Mild Verified 01/17/25 16:53 clavulanic acid Allergy Mild Verified 01/17/25 16:53 tetracycline Allergy Mild Verified 01/17/25 16:53 dragon fruit Allergy Verified 01/17/25 16:53 kiwi Allergy Verified 01/17/25 16:53 Review of Systems Status of ROS: Reports: 10 or more systems reviewed and unremarkable except as noted in History and below [facility] Medical History Sore throat ?J02.9 - Acute pharyngitis, unspecified (ICD-10) Social History Smoking Status: Never smoker Do you use any of these nicotine containing products: None Second hand tobacco smoke exposure: No How often do you have a drink containing alcohol: monthly or less How many standard drinks containing alcohol do you have on a typical day: 1 or 2 How often do you have six or more drinks on one occasion: Never AUDIT-C Alcohol total score: 1 Non-prescribed substance use: denies use service: No Exam Narrative: Exam Narrative: Const: Well-nourished, Well-developed, in mild distress Eyes: PERRL, no conjunctival injection, and symmetrical lids HENT: Atraumatic external nose and ears. Moist mucous membranes. Neck: Symmetric, trachea midline, No thyromegaly. CVS: RRR, No murmurs or gallops. Peripheral pulses 2+ and equal in all extremities RESP: Unlabored respiratory effort. Clear to auscultation bilaterally. GI: Nontender/Nondistended, No rebound or guarding. MSK:Extremities w/o deformity, Normal Active ROM Skin: Warm, Dry. No rashes or lesions. Neuro: Normal Muscle tone, Cranial nerves 2-12 grossly intact, normal zegx-tf-mlbq, normal anlaki-za-pgxw, normal gait, normal strength 5/5 upper lower extremities bilaterally, normal sensation upper and lower extremities bilaterally, normal rapid alternating movements. Psych: Awake, Alert, & Oriented x3. Appropriate mood and affect. Const: Vital Signs, click to edit/add: Vital Signs - 24 hr 02/07/25 16:56 Temperature 97.3 F L Pulse Rate [Pulse Oximeter] 88 Respiratory Rate 20 Blood Pressure [Ri ght Upper Arm] 171/103 H Pulse Oximetry 97 Oxygen Delivery Me thod Room Air Course Vital Signs Vital signs: Initial Vital Signs Temperature 97.3 F L 02/07/25 16:56 Temperature Source Temporal Artery Scan 02/07/25 16:56 Pulse Rate 88 02/07/25 16:56 Respiratory Rate 20 02/07/25 16:56 Blood Pressure 171/103 H 02/07/25 16:56 Blood Pressure Mean 125 H 02/07/25 16:56 Blood Pressure Position Sitting 02/07/25 16:56 Pulse Oximetry 97 02/07/25 16:56 Oxygen Delivery Method Room Air 02/07/25 16:56 Vital Signs Temperature 97.3 F L 02/07/25 16:56 Pulse Rate 88 02/07/25 16:56 Respiratory Rate 20 02/07/25 16:56 Blood Pressure 171/103 H 02/07/25 16:56 Pulse Oximetry 97 02/07/25 16:56 Oxygen Delivery Method Room Air 02/07/25 16:56 Temperature 97.3 F L 02/07/25 16:56 Pulse Rate 88 02/07/25 16:56 Respiratory Rate 20 02/07/25 16:56 Blood Pressure 171/103 H 02/07/25 16:56 Pulse Oximetry 97 02/07/25 16:56 Oxygen Delivery Method Room Air 02/07/25 16:56 MDM - Headache MDM Narrative Medical decision making narrative: Patient is a 54-year-old male presenting to the emergency department for headache. Differential for headache includes intracranial mass, intracranial abscess, migraine, tension headache, cluster headache. This headache did start shortly after his prednisone so I a.m. curious for this related to the prednisone. He will finish the prednisone and a couple days. He is on a tapered dose. Is on the prednisone due to inflammation on his skin. He does have a long family history of multiple cancers but no cancer in him specifically. Had a head CT 3 months ago for possible TIA that was unremarkable. Does state he has had multiple head CTs over the years due to falls and other head injuries. Based on his description of the pain it does sound like a tension headache and I do not believe he has cancer but did speak to him about doing a CT scan. After shared decision-making the patient declined a CT scan and this seems reasonable. I did offer him the migraine cocktail but he declined. He did ask for a shot of Toradol and I will give him a prescription for this also. He will follow-up with his primary care provider. I will provide him Toradol via [employer]. Discharge Plan Discharge Clinical Impression: Tension headache Patient Disposition: Home, Self-Care Condition: Stable Instructions: Tension Headache (ED) Additional Instructions: supervisor dried yeast the Toradol from [employer]. When using the Toradol do not take other NSAIDs, for example naproxen or ibuprofen. You can use Tylenol though as it is a different class of drugs. If headache does persist follow-up with your primary care provider. Prescriptions: No Action fluticasone propion-salmeterol [Advair Diskus] 250-50 mcg/dose blister with device 1 inh inhalation BID zafirlukast 10 mg tablet 20 mg PO BID Rx Instructions: must be taken on empty stomach, at least 1 hr before or 2 hrs after a meal/food sulfasalazine 500 mg tablet 0.5 g PO QDAY Rx Instructions: give with food (meal/snack) albuterol sulfate 90 mcg/actuation HFA aerosol inhaler 1 inh inhalation ONCE All Day Allergy (cetirizine) 10 mg capsule 10 mg PO QDAY PRN ipratropium-albuterol 0.5 mg-3 mg(2.5 mg base)/3 mL solution for nebulization 3 ml inhalation Q6H PRN triamcinolone acetonide 0.1 % cream topical 3XD PRN clotrimazole 1 % cream topical BID pantoprazole [Protonix] 40 mg tablet,delayed release (DR/EC) 40 mg PO DAILY Qty: 20 2RF Follow Up/Referrals: Cezar Esparza MD [Primary Care Provider, Family Practice] Stand Alone Forms: [employer] Info Instructions
--- OUTSIDE RECORDS SUMMARY | 2025-02-07 17:44 | XMS_ITS ---
Author Name Interface, [id number] lity Address [address] [place] [address] [address] [place] [address] Organization [facility] Address [address] [facility] [address] [place] [address] Support Name Relationship Address Phone Susana Hoff [...] Instructions Refusal Reason Stat us Covid-19 vaccine ([employer]) Completed Covid-19 vaccine ([employer]) Completed Medications Date Name Route Dose Frequency [...]
--- OUTSIDE RECORDS SUMMARY | 2025-02-07 17:44 | XMS_ITS | CCD ---
Author Name Interface, [id number] lity Address [address] [place] [address] [address] [address] Organization [facility] Address [address] [facility] [address] [address] Care Team Providers Care Almond Roaster Name Role Phone Bennett LUCIA, Aarti Unavailable [...]
--- OUTSIDE RECORDS SUMMARY | 2025-02-07 17:44 | XMS_ITS ---
Author Name Interface, [id number] lity Address [address] [place] [address] [address] [place] [address] Organization [facility] Address [address] [facility] [address] [place] [address] Support Name Relationship Address Phone Susana Hoff [...] Instructions Refusal Reason Stat us Covid-19 vaccine ([facility]) Completed Covid-19 vaccine ([facility]) Completed Medications Date Name Route Dose Frequency [...]
--- OUTSIDE RECORDS SUMMARY | 2025-02-07 17:44 | XMS_ITS | CCD ---
Author Name Interface, [id number] lity Address [address] [place] [address] [address] [address] Organization [facility] Address [address] [facility] [address] [address] Care Team Providers Care Pulley Man Name Role Phone Bennett LUCIA, Aarti Unavailable [...]
== END 2025-02-07 18:05 | disposition home or self-care (01) ==
PROVIDERS: Emergency Provider Student in an Organized Health Care Education/Training Program; PCP Family Medicine
DX: G44.209 Tension-type headache, unspecified, not intractable (principal)
CPT/HCPCS: 99283; J1885